=== PATIENT | male | born 1970 | race Hispanic/Latino ===

== ENCOUNTER 2019-09-10 10:36 | Emergency (ER) | payer OTHER ==
[2019-09-10] MEDS ORDERED: MORPHINE 4 MG/ML SYR ONE (11:21)
[2019-09-10] MEDS ORDERED: ONDANSETRON 4 MG/2 ML VIAL ONE (11:21)
[2019-09-10 11:36] LABS: Absolute Lymphocytes (CBC) 2.4 K/uL (0.7-4.9); Basophils % 0.9 % (0-1.3); Hematocrit 45.8 % (39.6-49.0); Lymphocytes % 33.7 % (15.3-44.8); MPV 9.5 fL (7.6-11.3)
[2019-09-10 11:50] LABS: Albumin 3.8 g/dL (3.4-5.0); Bilirubin Direct 0.2 mg/dL (0-0.2); Bilirubin Total 0.6 mg/dL (0.2-1.0); Potassium 3.7 mmol/L (3.5-5.1); Protein, Total 7.3 g/dL (6.4-8.2)
--- NOTE | 2019-09-10 12:31 | RAD REPORT ---
EXAM DESCRIPTION: CTAbdomen Pelvis W Contrast - 09/10/2019 12:11 pm CLINICAL HISTORY: Abdominal pain. RLQ PAIN COMPARISON: CT ABD PELVIS W CONTRAST dated 04/26/2012 TECHNIQUE: Biphasic CT imaging of the abdomen and pelvis was performed with 100 ml non-ionic IV cont rast. All CT scans are performed using dose optimization technique as appropriate and may include automated exposure control or mA/KV adjustment according to patient size. FINDINGS: The lung bases are clear.Postsurgical changes are present of gastric bypass. The liver, spleen, pancreas, adrenal glands and kidneys are within normal limits. Small renal cysts b ilaterally. No bowel obstruction, free air, free fluid or abscess. The appendix is normal. No evidence of signi ficant lymphadenopathy. No suspicious bony findings. IMPRESSION: No acute intra-abdominal or pelvic finding.
--- NOTE | 2019-09-10 13:43 | ER ---
Nurse's Notes [facility] Name: Osmany Ojeda Age: 49 yrs Sex: Male : 1970 Arrival Date: 09/10/2019 Time: 10:41 Bed 17 Private MD: Diagnosis: Unspecified abdominal pain;Diarrhea, unspecified Presentation: 09/10 10:48 Presenting complaint: RLQ pain and diarrhea x 3 days. Denies fever. Transition of care: hb patient was not received from another setting of care. Onset of symptoms was August 2019. Risk Assessment: Do you want to hurt yourself or someone else? Patient reports no desire to harm self or others. Initial Sepsis Screen: Does the patient meet any 2 criteria? No. Patient's initial sepsis screen is negative. Does the patient have a suspected source of infection? No. Patient's initial sepsis screen is negative. Care prior to arrival: None. 10:48 Method Of Arrival: Ambulatory hb 10:48 Acuity: JOSEPH 3 hb Historical: - Allergies: 10:50 Lisinopril; hb - Home Meds: 10:50 amlodipine oral [Active]; losartan oral oral [Active]; hb - PMHx: 10:50 acid reflux; Diabetes - IDDM; Hypertension; PTSD; Sleep Apnea; hb - PSHx: 10:50 None; hb - Immunization history:: Adult Immunizations up to date. - Social history:: Smoking status: Patient/guardian denies using tobacco. - Ebola Screening: : No symptoms or risks identified at this time. Screenin:30 Abuse screen: Denies threats or abuse. Denies injuries from another. Nutritional jl7 screening: No deficits noted. Tuberculosis screening: No symptoms or risk factors identified. Fall Risk IV access (20 points). Total Ochoa Fall Scale indicates No Risk (0-24 pts). Assessment: 11:30 General: Appears in no apparent distress. uncomfortable, Behavior is calm, cooperative, jl7 appropriate for age. Pain: Complains of pain in right lower quadrant Pain does not radiate. Pain currently is 7 out of 10 on a pain scale. Quality of pain is described as sharp, Pain began 2 weeks ago Is intermittent. Neuro: Level of Consciousness is awake, alert, obeys commands, Oriented to person, place, time, situation. Cardiovascular: Patient's skin is warm and dry. Respiratory: Airway is patent Respiratory effort is even, unlabored, Respiratory pattern is regular, symmetrical. GI: Bowel sounds present X 4 quads. Abd is soft X 4 quads Abdomen is tender to palpation in right lower quadrant Reports diarrhea. Derm: Skin is pink, warm \T\ dry. 12:02 Reassessment: Patient appears in no apparent distress at this time. Patient and/or jl7 family updated on plan of care and expected duration. Pain level reassessed. Patient is alert, oriented x 3, equal unlabored respirations, skin warm/dry/pink. Patient states symptoms have improved. 13:11 Reassessment: Patient appears in no apparent distress at this time. No changes from jl7 previously documented assessment. Patient and/or family updated on plan of care and expected duration. Pain level reassessed. Patient is alert, oriented x 3, equal unlabored respirations, skin warm/dry/pink. 13:20 Reassessment: ERP aware of BP, pt has home medications that he forgot to take and will jl7 take now. Vital Signs: 10:50 BP 193 / 92; Pulse 55; Resp 16; Temp 97.2(TE); Pulse Ox 100% on R/A; Weight 96.16 kg; hb Height 5 ft. 8 in. (172.72 cm); Pain 7/10; 12:01 BP 206 / 90; Pulse 52; Resp 16 S; Pulse Ox 100% on R/A; Pain 6/10; jl7 12:01 Pain 6/10; jl7 13:11 BP 201 / 76; Pulse 51; Resp 16 S; Pulse Ox 100% on R/A; jl7 10:50 Body Mass Index 32.23 (96.16 kg, 172.72 cm) hb ED Course: 10:41 Patient arrived in ED. mr 10:49 Triage completed. hb 10:50 Arm band placed on. hb 10:56 Cordell Rosales NP is PHCP. pm1 10:56 Gunnar Bustos MD is Attending Physician. pm1 11:12 Amparo Huitron RN is Primary Nurse. jl7 11:26 Initial lab(s) drawn, by hi, sent to lab. Inserted saline lock: 22 gauge in right jb1 antecubital area, using aseptic technique. Blood collected. 11:30 Patient has correct armband on for positive identification. Placed in gown. Bed in low jl7 position. Call light in reach. Side rails up X 1. Pulse ox on. NIBP on. 12:11 CT Abd/Pelvis - IV Contrast Only In Process Unspecified. EDMS 14:07 No provider procedures requiring assistance completed. IV discontinued, intact, jl7 bleeding controlled, No redness/swelling at site. Pressure dressing applied. Administered Medications: 11:35 Drug: Zofran 4 mg Route: IVP; Site: right antecubital; jl7 12:01 Follow up: Response: No adverse reaction jl7 11:37 Drug: morphine 4 mg Route: IVP; Site: right antecubital; jl7 12:01 Follow up: Pain 6/10 Adult; Response: Pain is decreased jl7 Outcome: 13:42 Discharge ordered by . pm1 14:07 Discharged to home ambulatory. jl7 14:07 Condition: stable 14:07 Discharge instructions given to patient, Instructed on discharge instructions, follow up and referral plans. Demonstrated understanding of instructions, follow-up care, medications, Prescriptions given X 1. 14:08 Patient left the ED. jl7 Signatures: Dispatcher [employer] EDMS Madhu Ibrahim jb1 Phoebe Ortega mr Cordell Rosales, LOCK TENDER CHIEF OPERATOR LOCK TENDER CHIEF OPERATOR pm1 Bozena Nolan, Amparo Rocha RN, RN RN jl7
--- NOTE | 2019-09-10 13:43 | EDPHYS ---
Physician Documentation [facility] Name: Osmany Ojeda Age: 49 yrs Sex: Male : 1970 Arrival Date: 09/10/2019 Time: 10:41 Bed 17 Private MD: ED Physician Gunnar Bustos HPI: 09/10 11:15 This 49 yrs old Male presents to ER via Ambulatory with complaints of pm1 Abdominal Pain. 11:15 The patient presents with abdominal pain right lower quadrant. Onset: The pm1 symptoms/episode began/occurred 2 week(s) ago. The symptoms do not radiate. Associated signs and symptoms: Pertinent positives: diarrhea, Pertinent negatives: nausea and vomiting, chest pain, dysuria, fever, shortness of breath. The symptoms are described as sharp. Modifying factors: The symptoms are alleviated by nothing, the symptoms are aggravated by nothing. Severity of pain: in the emergency department the pain is unchanged. The patient has not experienced similar symptoms in the past. It is unknown whether or not the patient has recently seen a physician. Historical: - Allergies: 10:50 Lisinopril; hb - Home Meds: 10:50 amlodipine oral [Active]; losartan oral oral [Active]; hb - PMHx: 10:50 acid reflux; Diabetes - IDDM; Hypertension; PTSD; Sleep Apnea; hb - PSHx: 10:50 None; hb - Immunization history:: Adult Immunizations up to date. - Social history:: Smoking status: Patient/guardian denies using tobacco. - Ebola Screening: : No symptoms or risks identified at this time. ROS: 11:15 Constitutional: Negative for fever, chills, and weight loss, Eyes: Negative for injury, pm1 pain, redness, and discharge, ENT: Negative for injury, pain, and discharge, Neck: Negative for injury, pain, and swelling, Cardiovascular: Negative for chest pain, palpitations, and edema, Respiratory: Negative for shortness of breath, cough, wheezing, and pleuritic chest pain. 11:15 Back: Negative for injury and pain, : Negative for injury, bleeding, discharge, and swelling, MS/Extremity: Negative for injury and deformity, Skin: Negative for injury, rash, and discoloration. 11:15 Neuro: Negative for headache, weakness, numbness, tingling, and seizure. 11:15 Abdomen/GI: Positive for abdominal pain, diarrhea, of the right lower quadrant, Negative for nausea and vomiting, constipation. Exam: 11:15 Constitutional: This is a well developed, well nourished patient who is awake, alert, pm1 and in no acute distress. Head/Face: Normocephalic, atraumatic. Neck: Trachea midline, no thyromegaly or masses palpated, and no cervical lymphadenopathy. Supple, full range of motion without nuchal rigidity, or vertebral point tenderness. No Meningismus. Chest/axilla: Normal chest wall appearance and motion. Nontender with no deformity. No lesions are appreciated. Cardiovascular: Regular rate and rhythm with a normal S1 and S2. No gallops, murmurs, or rubs. Normal PMI, no JVD. No pulse deficits. Respiratory: Lungs have equal breath sounds bilaterally, clear to auscultation and percussion. No rales, rhonchi or wheezes noted. No increased work of breathing, no retractions or nasal flaring. 11:15 Back: No spinal tenderness. No costovertebral tenderness. Full range of motion. Skin: Warm, dry with normal turgor. Normal color with no rashes, no lesions, and no evidence of cellulitis. MS/ Extremity: Pulses equal, no cyanosis. Neurovascular intact. Full, normal range of motion. 11:15 Abdomen/GI: Inspection: abdomen appears normal, Bowel sounds: normal, Palpation: soft, mild abdominal tenderness, in the right lower quadrant, mass, is not appreciated, rebound tenderness, is not appreciated. 11:15 Neuro: Orientation: is normal, Motor: is normal, moves all fours. Vital Signs: 10:50 BP 193 / 92; Pulse 55; Resp 16; Temp 97.2(TE); Pulse Ox 100% on R/A; Weight 96.16 kg; hb Height 5 ft. 8 in. (172.72 cm); Pain 7/10; 12:01 BP 206 / 90; Pulse 52; Resp 16 S; Pulse Ox 100% on R/A; Pain 6/10; jl7 12:01 Pain 6/10; jl7 13:11 BP 201 / 76; Pulse 51; Resp 16 S; Pulse Ox 100% on R/A; jl7 10:50 Body Mass Index 32.23 (96.16 kg, 172.72 cm) hb MDM: 11:06 Patient medically screened. pm1 12:36 Data reviewed: vital signs. Data interpreted: Pulse oximetry: on room air is 100 %. pm1 Interpretation: normal. 13:41 Counseling: I had a detailed discussion with the patient and/or guardian regarding: the pm1 historical points, exam findings, and any diagnostic results supporting the discharge/admit diagnosis, lab results, radiology results, the need for outpatient follow up, to return to the emergency department if symptoms worsen or persist or if there are any questions or concerns that arise at home. 09/10 11:15 Order name: Basic Metabolic Panel; Complete Time: 11:51 pm1 09/10 11:15 Order name: CBC with Diff; Complete Time: 11:51 pm1 09/10 11:15 Order name: Creatinine for Radiology; Complete Time: 11:51 pm1 09/10 11:15 Order name: Hepatic Function; Complete Time: 11:51 pm1 09/10 11:15 Order name: Lipase; Complete Time: 11:51 pm1 09/10 11:15 Order name: CT Abd/Pelvis - IV Contrast Only; Complete Time: 12:35 pm1 09/10 11:15 Order name: IV Saline Lock; Complete Time: 11:27 pm1 09/10 11:15 Order name: Labs collected and sent; Complete Time: 11:27 pm1 Administered Medications: 11:35 Drug: Zofran 4 mg Route: IVP; Site: right antecubital; jl7 12:01 Follow up: Response: No adverse reaction [facility] 11:37 Drug: morphine 4 mg Route: IVP; Site: right antecubital; jl7 12:01 Follow up: Pain 6/10 Adult; Response: Pain is decreased jl7 Disposition: 09/11 06:52 Co-signature as Attending Physician, Gunnar Bustos MD I agree with the assessment and monica plan of care. Disposition: 09/10/19 13:42 Discharged to Home. Impression: Unspecified abdominal pain, Diarrhea, unspecified. - Condition is Stable. - Discharge Instructions: Abdominal Pain, Adult, Food Choices to Help Relieve Diarrhea, Adult, Diarrhea, Adult. - Prescriptions for Bentyl 20 mg Oral Tablet - take 1 tablet by ORAL route every 6 hours As needed; 20 tablet. - Medication Reconciliation Form, Thank You Letter, Antibiotic Education, Prescription Opioid Use form. - Follow up: Emergency Department; When: As needed; Reason: Worsening of condition. Follow up: Private Physician; When: 2 - 3 days; Reason: Recheck today's complaints, Continuance of care, Re-evaluation by your physician. - Problem is new. - Symptoms have improved. Signatures: Dispatcher [employer] EDMS Gunnar Bustos MD MD cha Marinas, Patrick, OPTICAL DESIGN ENGINEER OPTICAL DESIGN ENGINEER pm1 Bozena Nolan RN RN Amparo Huitron RN RN jl7 Corrections: (The following items were deleted from the chart) 09/10 14:08 13:42 09/10/2019 13:42 Discharged to Home. Impression: Unspecified abdominal pain; jl7 Diarrhea, unspecified. Condition is Stable. Forms are Medication Reconciliation Form, Thank You Letter, Antibiotic Education, Prescription Opioid Use. Follow up: Emergency Department; When: As needed; Reason: Worsening of condition. Follow up: Private Physician; When: 2 - 3 days; Reason: Recheck today's complaints, Continuance of care, Re-evaluation by your physician. Problem is new. Symptoms have improved. pm1
[2019-09-10 20:10] VITALS: TEMP 97.2; O2SAT 100
[2019-09-10 20:17] VITALS: BP 201/76
== END 2019-09-10 14:08 | disposition home or self-care (01) ==
LOC: ER 10:36
DX: R19.7 Diarrhea, unspecified (principal); I10 Essential (primary) hypertension; E11.9 Type 2 diabetes mellitus without complications; Z88.8 Allergy status to other drugs, medicaments and biological substances
CPT/HCPCS: 85025; 80048; 36415; 80076; 83690; 74177; 96375; 96374; 99284; Q9967; J2405

== ENCOUNTER 2020-04-12 22:49 | Inpatient (IN) | payer OTHER ==
--- OUTSIDE RECORDS SUMMARY | 2020-04-12 22:52 | XMS REPORT | Continuity of Care Document ---
:1970 Author Organization [facility] t Address [address] [place] [address] Care Team Providers Name Role Phone Theodora Yoon MD Primary Care Physician Pob1, Care Clinic Attending Clinician Unavailable Sobia TELLEZ, N. Attending Clinician Mirella VALLADARES Attending Clinician Unavailable Aminata TELLEZ Attending Clinician Viv Yoon MD Attending Clinician Problems Condition Condition Condition Status Onset Resolution Last Treating Co mments Source Name Details Category Date Date Treatment Clinician Date Morbid Morbid Disease Active 2017-10 [place] obesity obesity 0-18 [facility] due to due to 00:00: st excess excess 00 calories calories Loose body Loose body Disease Active [place] in right in right 02-14 [facility] elbow elbow 00:00: st 00 Arthritis Arthritis Disease Active Anisa ston of right of right 01-16 [facility] elbow elbow 00:00: st 00 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 type 2 ed type 2 05-18 [facility] diabetes diabetes 00:00: st mellitus mellitus 00 with with complicati complicati on, with on, with long-term long-term current current use of use of insulin insulin Mixed Mixed Disease Active [place] hyperlipid hyperlipid 05-18 Me thodi emia emia 00:00: st 00 Benign Benign Disease Active [place] essential essential 7-14 Meth leandra HTN HTN 00:00: st 00 Allergies, Adverse Reactions, Alerts Allergy Allergy Status Severity Reaction(s) Onset Inactive Treating Comm ents Source Name Type Date Date Clinician Pollen Propensi Active 2016-10 Pt [place] Extracts ty to 11-13 allergic [facility] adverse 00:00: to dust st reaction 00 s to drug Lisinopr Propensi Active Other (See Cough [place] ty to Comments) 08 [facility] adverse 00:00: st reaction 00 s to drug Family History Family Member Diagnosis Comments Start Date Stop Date Source Natural father Diabetes [facility] thodist Natural father Hypertension [place] Yazidism Natural mother Diabetes [facility] thodist Natural mother Heart disease [place] [facility] Natural [facility] Hy[facility] Natural mother Stroke [facility] thod[facility] Social History Social Habit Start Date Stop Date Quantity Comments Source History [facility] Meth odist Alcohol Std Drinks History [facility] Meth odist Alcohol Binge Sex Assigned At [facility] ethodist Exposure to Not sure [place] Metho dist SARS-CoV-2 (event) Alcohol intake 2019-04-10 2019-04-[address] [facility] thodist 00:00:00 00:00:00 non-drinker of alcohol (finding) History [facility] 2018-11-08 2018-11-08 1 [place] Meth odist Alcohol Frequency 00:00:00 00:00:00 Smoking Status Start Date Stop Date Source Never smoker [place] Method[facility] t Medications Ordered Filled Start Stop Current Ordering Indication Dosage Frequency Signature Comments Components Source Medication Medication Date Date Medication? Clinician (SIG) Name Name atorvastati Yes 40mg QD Take 40 mg [place] n (LIPITOR) 18 by mouth Meth leandra 40 MG 11:02: nightly. st tablet 49 insulin Yes 14U QD Inject 14 [place] GLARGINE 6-18 Units [facility] (LANTUS) 11:02: under the st 100 unit/mL 49 skin every injection morning. (vial) cyanocobala Yes QD Place [place] min, -18 under the [facility] vitamin 11:02: tongue st B-12, 49 daily. (VITAMIN B-12) 1,000 mcg tablet, sublingual calcium Yes QD Take by [place] carbonate/v -18 mouth [facility] itamin D3 11:02: daily. st (CALCIUM 49 600 + D,3, ORAL) iron,carb/v Yes QD Take by Anisa hawkins it C/vit 18 mouth [facility] B12/folic 11:02: daily. st (IRON 100 49 PLUS ORAL) UNABLE TO 2019-0 Yes QD daily. Med [employer] [facility] FIND 04-10 Name: [facility] 11:02: Bariatric st 49 Advantage MVI losartan Yes Take by [facility] n potassium 18 mouth. [facility] (LOSARTAN 11:02: st ORAL) 49 amlodipine Yes Take by [facility] ton besylate 18 mouth. [facility] (AMLODIPINE 11:02: st ORAL) 49 gabapentin Yes 100mg [id number] Take 1 [place] (NEURONTIN) 2-28 [id number] capsule [facility] 100 mg 00:00: 3D ([address] capsule 00 total) by mouth 3 (three) times a day. citalopram Yes [facility] QD [facility] 9-17 tablet (40 Me thodi MG tablet 00:00: mg total) st 00 by mouth nightly. blood sugar Yes Uncontrolle Testing 4 [place] diagnostic 8-11 d type 2 X day [facility] strips 00:00: diabetes st strip test 00 mellitus strips without complicatio n, with long-term current use of insulin ([facility]) lancets 0 Yes Uncontrolle Testing 4 [place] misc 8-11 d type 2 X Day [facility] 00:00: diabetes st 00 mellitus without complicatio n, with long-term current use of insulin ([facility]) lancets 33 0 Yes Uncontrolle Testing 3 [place] gauge misc 8-04 d type 2 X Day Meth leandra 00:00: diabetes st 00 mellitus with complicatio n, with long-term current use of insulin ([facility]) blood sugar Yes Uncontrolle Testing 3 [place] diagnostic 7-26 d type 2 X Day [facility] le[facility] strips 00:00: diabetes st strip test 00 mellitus strips with complicatio n, with long-term current use of insulin ([facility]) Procedures Procedure Date / Time Performed Performing Clinician [facility] e COMPREHENSIVE METABOLIC 2019-09-10 09:24:00 Tete [facility] PANEL HEMOGLOBIN A1C 2019-09-10 09:24:00 Tete Coates Met hod[facility] LIPID PANEL 2019-09-10 09:24:00 Tete Coates Met vazquezist MICROALBUMIN / CREATININE 2019-09-10 09:24:00 Tete Coates [facility] URINE RATIO Plan of Care Planned Activity Planned Date Details Comments Source Future Scheduled 2020-09-27 DIABETIC RETINAL EYE [facility] st[facility] Test 00:00:00 EXAM [code = DIABETIC RETINAL EYE EXAM] Future Scheduled 2020-09-10 URINE MICROALBUMIN [place] [facility] Test 00:00:00 [code = URINE MICROALBUMIN] Future Scheduled 2020-05-24 INFLUENZA VACCINE [place] [facility] Test 00:00:00 [code = INFLUENZA VACCINE] Future Scheduled 2020 COLONOSCOPY SCREENING [place] [facility] Test 00:00:00 [code = COLONOSCOPY SCREENING] Future Scheduled 2020 SHINGLES VACCINES (#1) [place] [facility] Test 00:00:00 [code = SHINGLES VACCINES (#1)] Future Scheduled 2020-03-12 DIABETIC FOOT EXAM [place] [facility] Test 00:00:00 [code = DIABETIC FOOT EXAM] Encounters Start End Encounter Admission Attending Care Care Encounter Source Date/Time Date/Time Type Type Clinicians Facility Department ID 2020-04-11 2020-04-11 Urgent Pob1, Acute [facility] [id number] 15:51:25 16:47:07 [facility] [id number] [place] [id number] [id number] [place] [address] [address] Results This patient has no known results.
--- OUTSIDE RECORDS SUMMARY | 2020-04-12 22:52 | XMS REPORT | Clinical Summary ---
:1970 Author Organization [facility] Address [address] [place] [address] Care Team Providers Name Role Phone Theodora Yoon MD Primary Care Provider [phone] Allergies Active Allergy Reactions Severity Noted Date Comments Lisinopril Other (See Comments) 03/31/2017 Cough Pollen Extracts 09/13/2017 Pt allergic to dust Medications Medication Sig Dispensed Refills Start Date End Date Status atorvastatin (LIPITOR) Take 40 mg by 0 Active 40 MG tablet mouth nightly. blood sugar diagnostic Testing 3 X Day 400 strip 6 05/18/2017 Active strips strip test stripsIndications: Uncontrolled type 2 diabetes mellitus with complication, with long-term current use of insulin ([facility]) lancets 33 gauge Testing 3 X Day 300 each 6 05/27/2017 Active miscIndications: Uncontrolled type 2 diabetes mellitus with complication, with long-term current use of insulin ([facility]) blood sugar diagnostic Testing 4 X day 400 strip 6 06/03/2017 Active strips strip test stripsIndications: Uncontrolled type 2 diabetes mellitus without complication, with long-term current use of insulin ([facility]) lancets Testing 4 X Day 400 each 6 06/03/2017 Act sanjay miscIndications: Uncontrolled type 2 diabetes mellitus without complication, with long-term current use of insulin ([facility]) citalopram (CeleXA) 40 Take 1 tablet (40 90 tablet 0 8 Active MG tablet mg total) by mouth nightly. insulin GLARGINE Inject 14 Units 0 Active (LANTUS) 100 unit/mL under the skin injection (vial) every morning. cyanocobalamin, Place under the 0 Active vitamin B-12, (VITAMIN tongue daily. B-12) 1,000 mcg tablet, sublingual calcium Take by mouth 0 Active carbonate/vitamin D3 daily. (CALCIUM 600 + D,3, ORAL) iron,carb/vit C/vit Take by mouth 0 Active B12/folic (IRON 100 daily. PLUS ORAL) UNABLE TO FIND daily. Med Name: 0 Active Bariatric Advantage MVI losartan potassium Take by mouth. 0 Active (LOSARTAN ORAL) amlodipine besylate Take by mouth. 0 Active (AMLODIPINE ORAL) gabapentin (NEURONTIN) Take 1 capsule 0 12/21/2018 Active 100 mg capsule (100 mg total) by mouth 3 (three) times a day. Active Problems Problem Noted Date Morbid obesity due to excess calories 08/10/2018 Loose body in right elbow 02/14/2018 Arthritis of right elbow 01/16/2018 Uncontrolled type 2 diabetes mellitus with complicatio n, with long-term 05/18/2017 current use of insulin Mixed hyperlipidemia 05/18/2017 Benign essential HTN 05/06/2017 Encounters Date Type Specialty Care Team Description 04/01/2020 Telephone Urology [place], Hypogonadis m in male Jaden Wheeler MD (Primary Dx) 03/25/2020 Travel 02/27/2020 Orders Only Endocrinology Mallorie [facility] (Primary Dx) 02/15/2020 Orders Only Endocrinology Mallorie Vu [facility]cont [facility] (Primary Dx) 11/06/2019 Telephone Endocrinology Mallorie Vu MA 09/09/2019 Refill Endocrinology Tete Coates MD Uncont rolled type 2 diabetes mellitus with complication, with long-term current use of insulin (HCC); Uncontrolled ty pe 2 diabetes mellitus without complication, with long-term current use of insulin (HCC) 09/09/2019 Refill Family Medicine Theodora Yoon MD after 04/12/2019 Family History Medical History Relation Name Comments Diabetes Father Zion Ojeda Hypertension Father Donovan Ojeda Diabetes Mother Marianne Radha Heart disease Mother Marianne Radha Hypertension Mother Marianne Radha Stroke Mother Marianne Radha Relation Name Status Comments Father Zion Ojeda Maternal Grandfather Maternal Grandmother Mother Marianne Radha Alive Paternal Grandfather Paternal Grandmother Social History Tobacco Use Types Packs/Day Years Used Date Never Smoker Smokeless Tobacco: Never Used Tobacco Cessation: Counseling Given: No Alcohol Use Drinks/Week oz/Week Comments No Alcohol Habits Answer Date Recorded How often do you have a drink containing alcohol? Never 11/08/2018 How many drinks containing alcohol do you have on a typical Not asked day when you are drinking? How often do you have six or more drinks on one occasion? No t asked Sex Assigned at Date Recorded Not on file Job Start Date Occupation Industry Not on file Not on file Not on file Travel History Travel Start Travel End No recent travel history available. COVID-19 Exposure Response Date Recorded In the last month, have you been in contact with No / Unsure 03/25/2020 11:04 AM CDT someone who was confirmed or suspected to have Coronavirus / COVID-19? Last Filed Vital Signs Not on file Plan of Treatment Date Type Specialty Care Team Description 04/21/2020 Office Visit Endocrinology Tete Coates MD [address] [place], [place] [address] [phone] 04/28/2020 Office Visit Urology Jaden Ramsay MD [address] [place], [place] [address] [phone] 08/06/2020 Office Visit General Surgery Jason Raman MD [address] [place], [place] [address] [phone] Health Maintenance Due Date Last Done Comments DIABETIC FOOT EXAM 03/12/2020 03/12/2019, 03/12/2019, 03/12, Additional history exists COLONOSCOPY SCREENING 2020 SHINGLES VACCINES (#1) 2020 INFLUENZA VACCINE 05/24/2020 07/05/2018 URINE MICROALBUMIN 09/10/2020 09/10/2019, 05/05/2017 DIABETIC RETINAL EYE EXAM 09/27/2020 09/27/2018, 09/27/2018 , 09/27/2018, Additional history exists Procedures Procedure Name Priority Date/Time Associated Diagnosis Comme nts MICROALBUMIN / Routine 09/10/2019 9:24 Uncontrolled type 2 Re sults for this CREATININE URINE AM MEDICAL RECORDS SECRETARY diabetes mellitus with p rocedure are in RATIO insulin therapy (HCC) the re sults section. LIPID PANEL Routine 09/10/2019 9:24 Mixed hyperlipidemia Res ults for this AM MEDICAL RECORDS SECRETARY procedure are i n the results section. HEMOGLOBIN A1C Routine 09/10/2019 9:24 Uncontrolled type 2 Re sults for this AM MEDICAL RECORDS SECRETARY diabetes mellitus with proce dure are in insulin therapy (HCC) the re sults section. COMPREHENSIVE Routine 09/10/2019 9:24 Uncontrolled type 2 Res ults for this METABOLIC PANEL AM MEDICAL RECORDS SECRETARY diabetes mellitus with pr ocedure are in insulin therapy ([facility]) the re sults section. after 04/12/2019 Results Microalbumin / creatinine urine ratio (09/10/2019 9:24 AM MEDICAL RECORDS SECRETARY) Creatinine, urine, 211.8 Not Estab. [facility] random mg/dL Albumin, urine 1,504.1 Not Estab. [facility] Comment: ug/mL Results confirmed on dilution. Microalbumin/creati 710.2 (H) 0.0 - 30.0 [facility] nine ratio Comment: mg/g creat Normal: 0.0 - 30.0 Albuminuria: 31.0 - 300.0 Clinical albuminuria: >300.0 Specimen Urine Narrative Performed At Performed at: - [facility] [employer] [place], [place] [address] 095 Planner Chief: Kings Landin MD, Phone: [phone] Performing Organization Address [facility] [place] Phone Number [facility] Hemoglobin A1c (09/10/2019 9:24 AM MEDICAL RECORDS SECRETARY) Pathologist [facility] nature Hemoglobin A1C 9.4 (H) 4.8 - 5.6 % [facility] Comment: Prediabetes: 5.7 - 6.4 Diabetes: >6.4 Glycemic control for adults with diabetes : <7.0 Specimen Blood Narrative Performed At Performed at: - [facility] [employer] [place], [place] [id number] Planner Chief: Kings Landin MD, Phone: [phone] Performing Organization Address [facility] Phone Number [facility] Lipid panel (09/10/2019 9:24 AM MEDICAL RECORDS SECRETARY) Pathologist [facility] Cholesterol 134 100 - 199 mg/dL [facility] Triglycerides 134 0 - 149 mg/dL [facility] HDL cholesterol 34 (L) >39 mg/dL [facility] VLDL cholesterol andrzej 27 5 - 40 mg/dL [facility] LDL cholesterol calculated 73 0 - 99 mg/dL [facility] Non-HDL cholesterol 100 0 - 129 mg/dL [facility] Specimen Blood Narrative [facility]formed At [facility] [id number] Planner Chief: Kings Landin MD, Phone: [phone] Performing Organization Address [facility] [place] Phone Number [facility] Comprehensive metabolic panel (09/10/2019 9:24 AM MEDICAL RECORDS SECRETARY) [facility] Glucose 200 (H) 65 - 99 mg/dL [facility] BUN 9 6 - 24 mg/dL [facility] Creatinine 0.97 0.76 - 1.27 mg/dL [facility] EGFR Non-Afr. Iranian 91 >59 mL/min/1.73 [facility] EGFR 106 >59 mL/min/1.73 [facility] BUN/creatinine ratio 9 9 - 20 [facility] Sodium 141 134 - 144 mmol/L [facility] Potassium 4.2 3.5 - 5.2 mmol/L [facility] Chloride 101 96 - 106 mmol/L [facility] CO2 27 20 - 29 mmol/L [facility] Calcium 9.5 8.7 - 10.2 mg/dL [facility] Protein 6.8 6.0 - 8.5 g/dL [facility] Albumin, S 4.3 3.5 - 5.5 g/dL [facility] Globulin, total 2.5 1.5 - 4.5 g/dL [facility] Albumin/globulin ratio 1.7 1.2 - 2.2 [facility] Total bilirubin 0.6 0.0 - 1.2 mg/dL [facility] Alkaline phosphatase 107 39 - 117 IU/L [facility] AST 18 0 - 40 IU/L [facility] ALT 26 0 - 44 IU/L [facility] Specimen Blood Narrative Performed At [facility]formed [facility]: [facility] [id number] Planner Chief: Kings Landin MD, Phone: [phone] Performing Organization Address [facility] [place] Phone Number [facility] after 04/12/2019 Advance Directives For more information, please contact: [phone] Type Date Recorded Patient Second Cutter Explanati on Advance Directives, Living Will and Medical Power of Street Light Inspector
--- OUTSIDE RECORDS SUMMARY | 2020-04-12 22:52 | XMS REPORT | Summary of Care ---
:[address] [facility] Address [address] [place] [address] Care Team Providers Name Role Phone Pcp, Patient Does Not Have A Primary Care Provider [phone] Reason for Visit Reason Comments Headache Chills And Sweats Body Aches Cough Exposure To Rodriguez Virus Encounter Details Date Type Department Care Team Description 04/11/2020 Urgent Care [facility] Family PriteshShahrzad haile, PA [address] [place] [phone] Cough (Primary Dx); [facility] [place] [address], Acute Care Clinic Acute URI; [address] [place] [address] [place] [address] Allergies Active Allergy Reactions Severity Noted Date Comments Lisinopril Cough 04/11/2020 documented as of this encounter (statuses as of 04/11/2020) Medications Medication Sig Dispensed Refills Start Date End Date Status benzonatate (TESSALON Take 1 capsule by 30 capsule 0 0 Active PERLES) 100 mg mouth 3 (three) capsuleIndications: times daily as Cough needed for Cough. documented as of this encounter (statuses as of 04/11/2020) Active Problems No known active problemsdocumented as of this encounter (statuses as of 04/11/2020) Social History Tobacco Use Types Packs/Day Years Used Date Never Smoker Smokeless Tobacco: Never Used Sex Assigned at Date Recorded Not on file Job Start Date Occupation Industry Not on file Not on file Not on file Travel History Travel Start Travel End No recent travel history available. COVID-19 Exposure Response Date Recorded In the last month, have you been in contact with Yes 04/11/2020 4:31 PM CDT someone who was confirmed or suspected to have Coronavirus / COVID-19? documented as of this encounter Last Filed Vital Signs Vital Sign Reading Time Taken Comments Blood Pressure 142/88 04/11/2020 4:33 PM CDT Pulse 78 04/11/2020 4:33 PM CDT Temperature 36.9 C (98.4 F) 04/11/2020 4:33 PM CDT Respiratory Rate 17 04/11/2020 4:33 PM CDT Oxygen Saturation 98% 04/11/2020 4:33 PM CDT Inhaled Oxygen Concentration - - Weight 85 kg (187 lb 6 oz) 04/11/2020 4:33 PM CDT Height - - Body Mass Index - - documented in this encounter Progress Notes Alix Jonas PA - 04/11/2020 4:20 PM CDT Cc: Chief Complaint Patient presents with Headache Chills And Sweats Body Aches Cough Exposure To Rodriguez Virus Osmany Rouse is a 50 year old male. Patient presents with URI symptoms that began 5 days ago. COVID19 exposure? Yes. Ex- and her family members positive. Patient was in contact with them last week. URI Presenting symptoms: congestion, cough, fatigue and sore throat Presenting symptoms: no ear pain, no facial pain, no fever and no rhinorrhea Duration: 5 days Timing: Intermittent Progression: Unchanged Chronicity: New Worsened by: Nothing Associated symptoms: arthralgias Associated symptoms: no headaches, no myalgias, no neck pain, no sinus pain, no sneezing, no swollenglands and no wheezing Risk factors: chronic cardiac disease, diabetes mellitus and sick contacts Risk factors: not elderly, no chronic kidney disease, no chronic respiratory disease, no immunosuppression, no recent illness and no recent travel Allergies Osmayn is allergic to lisinopril. Medications No outpatient medications prior to visit. No facility-administered medications prior to visit. Histories Past Medical History: Diagnosis Date Diabetes Hypertension History reviewed. No pertinent surgical history. Social History Socioeconomic History Marital status: Single Spouse name: Not on file Number of children: Not on file Years of education: Not on file Highest education level: Not on file Occupational History Not on file Social Needs Financial resource strain: Not on file Food insecurity: Worry: Not on file Inability: Not on file Transportation needs: Medical: Not on file Non-medical: Not on file Tobacco Use Smoking status: Never Smoker Smokeless tobacco: Never Used Substance and Sexual Activity Alcohol use: Not on file Drug use: Not on file Sexual activity: Not on file Lifestyle Physical activity: Days per week: Not on file Minutes per session: Not on file Stress: Not on file Relationships Social connections: Talks on phone: Not on file Gets together: Not on file Attends gnosticism service: Not on file Active member of club or organization: Not on file Attends meetings of clubs or organizations: Not on file Relationship status: Not on file Intimate partner violence: Fear of current or ex partner: Not on file Emotionally abused: Not on file Physically abused: Not on file Forced sexual activity: Not on file Other Topics Concern Not on file Social History Narrative Lives at home with and children Family History Problem Relation Age of Onset Diabetes Mother Diabetes Father Review of Systems Constitutional: Positive for fatigue. Negative for activity change, appetite change, chills, diaphoresis and fever. HENT: Positive for congestion and sore throat. Negative for ear pain, postnasal drip, rhinorrhea, sinus pressure, sinus pain, sneezing, trouble swallowing and voice change. Eyes: Negative for pain, discharge, redness and itching. Respiratory: Positive for cough. Negative for chest tightness, shortness of breath and wheezing. Cardiovascular: Negative for chest pain, palpitations and leg swelling. Gastrointestinal: Positive for diarrhea (x 1 this morning. not black or bloody) and vomiting (x 1 this morning). Negative for abdominal pain, constipation and nausea. Musculoskeletal: Positive for arthralgias. Negative for back pain, gait problem, joint swelling, myalgias and neck pain. Skin: Negative for color change and rash. Neurological: Negative for dizziness, syncope, weakness, light-headedness and headaches. Vital Signs BP (!) 142/88 | Pulse 78 | Temp 36.9 C (98.4 F) | Resp 17 | Wt 187 lb 6 oz (85 kg) | SpO2 98% Physical Exam Constitutional: He is oriented to person, place, and time. He appears well- developed and well-nourished. No distress. HENT: Head: Normocephalic and atraumatic. Right Ear: External ear normal. Left Ear: External ear normal. Nose: Nose normal. Eyes: Conjunctivae are normal. Right eye exhibits no discharge. Left eye exhibits no discharge. Neck: Normal range of motion. Neck supple. Cardiovascular: Normal rate, regular rhythm and normal heart sounds. Pulmonary/Chest: Effort normal and breath sounds normal. No respiratory distress. He has no wheezes.He has no rales. Abdominal: Soft. Bowel sounds are normal. He exhibits no distension. There is no tenderness. Musculoskeletal: Normal range of motion. He exhibits no edema. Neurological: He is alert and oriented to person, place, and time. Skin: Skin is warm and dry. No rash noted. He is not diaphoretic. Psychiatric: He has a normal mood and affect. His behavior is normal. Nursing note and vitals reviewed. Assessment/Plan Acute UR I(primary encounter diagnosis) Cough Plan: COVID-19 (PCR MOLECULAR TESTING), COVID-19 (PCR MOLECULAR TESTING), benzonatate (TESSALON PERLES) 100 mg capsule Afebrile, well appearing, non-toxic, NAD. HR < 100, lungs CTAB, O2 sat 98%. COVID-19 ordered. Educated on the following at home care: -Take tessalon prn cough -Increase water intake -Take over the counter vitamin C/multivitamin with vitamin C -Take Tylenol as needed, avoid nsaids -REST -Wash hands often -Cover mouth when coughing -Wear mask with in the same room/car as others -Gargle with warm salt water as needed -Drink warm liquids as needed. -Throat lozenges as needed -Quarantine until your COVID results are back -Stay in your own bedroom and use a separate bathroom -Keep at least 6 feet from you and others -Avoid sharing personal household items, dishes, glasses, cups, towels -Clean high traffic/touch areas daily. These include but not limited to: doorknobs, refrigerator/cabinet handles, phones, keyboards, tablets, light switches. -Monitor your symptoms. Take your temperature 2 times daily. -Follow-up with PCP as needed, if no improvement. -Monitor your symptoms. Go to the ED if worsening symptoms: chest pain, difficulty breathing, coughing up blood, weakness, dizziness, passing out, AMS. -CDC handout provided Essential hypertension Plan: BP: 142/88. No cp, palpitations, sob, dizziness. Managed by PCP. Encouraged to follow-up with PCP and keep bp log. Watch blood pressure: check 2-3 times daily and log. Look for high numbers >= 130/80. Log reading. Follow up in 3 weeks Low salt Low caffeine diet Low alcohol Avoid tobacco products. Avoid decongestants Heart Healthy Exercise: total of 150 minutes of cardio: walking,swimming, hiking, biking every week. Heart healthy diet: low fat/carb/sugar diet; increase lean meat-chicken, turkey, fish; increase vegetables/fruits ( still be careful because elevated sugar level) Er--> chest pain, dizziness, passing out, fluttering of heart, shortness of breath. Pt ed/precautions given in detail regarding conditions/medicaitons. Er precautions given. Pt reportsunderstanding and agrees. rtc if s/s worsen or do not improve ; Plan of care, desired health behaviors, goals, Ddx, & any prescribed or OTC medications discussed with patient. Education resources & self management tools provided and reviewed with AVS. Patient/guardian/family verbalized understanding & agrees to plan of care. Barriers to care: NONE Ability to manage care: Good This visit did not involve counseling and coordination that comprised more than 50% of the visit time. Carla Marie MA - 04/11/2020 4:20 PM CDTPatient educated on plan of care for visit, swabbing technique, risks and benefits of test and length of time to receive results. Verbal consent obtained to perform test. CDC Fact Sheet for Patients nCoV Diagnostic Panel dated 01/06/2020 provided. documented in this encounter Plan of Treatment Name Type Priority Associated Diagnoses Date/Ti me COVID-19 (PCR MOLECULAR LAB Routine Cough 04/11/2020 4:28 PM CDT TESTING) Acute URI Name Type Priority Associated Diagnoses Order S chedule COVID-19 (PCR MOLECULAR LAB Routine Cough Expected: 04/11/2020, TESTING) Acute URI Expires: 2020 Health Maintenance Due Date Last Done Comments DTaP,Tdap,and Td Vaccines (1 - 1981 Tdap) Depression Screening 1982 COLONOSCOPY 2020 Zoster Recombinant Vaccine 2020 (SHINGRIX) (1 of 2) INFLUENZA VACCINE (Season Ended) 2020 PNEUMOCOCCAL 0-64 YEARS COMBINED Aged Out No longer eligible based on SERIES patient's age to complete this topic documented as of this encounter Results Not on filedocumented in this encounter Visit Diagnoses Diagnosis Cough - Primary Acute URI Acute upper respiratory infections of un specified site Essential hypertension Unspecified essential hypertension documented in this encounter [phone] (Work) documented as of this encounter"
[2020-04-13] MEDS ORDERED: ACETAMINOPHEN 325 MG TABLET ONE (00:16)
[2020-04-13] MEDS ORDERED: NA CHLORIDE 0.9% 250 ML ONE (00:16)
[2020-04-13] MEDS ORDERED: NA CHLORIDE 0.9% 1,000 ML ONE ×2 (00:16→04:33)
[2020-04-13] MEDS ORDERED: AZITHROMYCIN 500 MG INJ IVPB ONE (00:16)
[2020-04-13] MEDS ORDERED: CEFTRIAXONE/SWI 1gm 1 GM/10 ML SYR ONE (00:16)
[2020-04-13 00:36] LABS: Basophils % 0.4 % (0-1.3); Hematocrit 47.8 % (39.6-49.0); Lymphocytes % 16.4 % (15.3-44.8); MPV 8.7 fL (7.6-11.3); RBC Red Blood Cell Count 5.63 M/uL (4.33-5.43)
[2020-04-13 00:49] LABS: Albumin 3.1 g/dL (3.4-5.0); Bilirubin Total 0.6 mg/dL (0.2-1.0); Potassium 3.7 mmol/L (3.5-5.1); Protein, Total 7.6 g/dL (6.4-8.2)
--- NOTE | 2020-04-13 02:20 | ER ---
Nurse's Notes [facility] Name: Osmany Ojeda Age: 50 yrs Sex: Male : 1970 Arrival Date: 04/12/2020 Time: 22:53 Bed 5 Private MD: Diagnosis: Pneumonia due to other specified bacteria;Type 1 diabetes mellitus;Coronavirus infection, unspecified-bilateral pneumonia Presentation: 04/12 23:04 Chief complaint: Patient states: Cough, chills, body aches, N/V/D for 4 days. No ll1 appetite. Coronavirus screen: Surgical mask placed on patient. Patient moved to private room, placed in contact and droplet isolation with eye protection until further assessment. Patient reports a cough. Patient denies shortness of breath or difficulty breathing. Patient reports a measured and/or subjective temperature greater than 100.4F. Patient reports travel on a cruise ship or to a country the [facility]NOTE 3] currently lists as an affected area. Patient reports contact with known and/or suspected case of COVID-19. Ebola Screen: Patient denies travel to an Ebola-affected area in the 21 days before illness onset. Initial Sepsis Screen: Does the patient meet any 2 criteria? No. Patient's initial sepsis screen is negative. Risk Assessment: Do you want to hurt yourself or someone else? Patient reports no desire to harm self or others. Onset of symptoms was April 08, 2020. 23:04 Method Of Arrival: Ambulatory ll1 23:04 Acuity: JOSEPH 3 ll1 04/13 00:29 Initial Sepsis Screen: Does the patient have a suspected source of infection?. mg2 Historical: - Allergies: 04/12 23:06 Lisinopril; ll1 - PMHx: 23:06 acid reflux; Diabetes - IDDM; Hypertension; Sleep Apnea; PTSD; ll1 - PSHx: 23:06 None; ll1 - Immunization history:: Flu vaccine is up to date. - Social history:: Smoking status: Patient denies any tobacco usage or history of. Patient uses alcohol, only on a social basis. Patient/guardian denies using street drugs. - Family history:: not pertinent. Screenin/21 00:28 Abuse screen: Denies threats or abuse. Denies injuries from another. Nutritional mg2 screening: No deficits noted. Tuberculosis screening: No symptoms or risk factors identified. Fall Risk IV access (20 points). Assessment: 00:25 General: Appears in no apparent distress. comfortable, Behavior is calm, cooperative. mg2 Pain: Complains of pain in chest Pain does not radiate. Pain currently is 2 out of 10 on a pain scale. Quality of pain is described as aching, Pain began gradually, 1 weeks ago Is intermittent. Neuro: Level of Consciousness is awake, alert, obeys commands, Oriented to person, place, time, situation. Cardiovascular: Capillary refill < 3 seconds Patient's skin is warm and dry. Respiratory: Reports cough that is productive, Airway is patent Trachea midline Respiratory effort is even, unlabored, Respiratory pattern is regular, symmetrical. GI: Abdomen is non-distended, Reports nausea, vomiting. : No signs and/or symptoms were reported regarding the genitourinary system. EENT: No signs and/or symptoms were reported regarding the EENT system. Derm: Skin is intact, is healthy with good turgor, Skin is pink, warm \T\ dry. normal. Musculoskeletal: Circulation, motion, and sensation intact. Capillary refill < 3 seconds. 00:25 Reassessment: chest pain was caused by severe coughing. mg2 01:30 Reassessment: Patient appears in no apparent distress at this time. Patient and/or mg2 family updated on plan of care and expected duration. Pain level reassessed. Patient is alert, oriented x 3, equal unlabored respirations, skin warm/dry/pink. 02:30 Reassessment: Patient appears in no apparent distress at this time. Patient and/or mg2 family updated on plan of care and expected duration. Pain level reassessed. Patient is alert, oriented x 3, equal unlabored respirations, skin warm/dry/pink. 03:34 Reassessment: Patient appears in no apparent distress at this time. Patient and/or mg2 family updated on plan of care and expected duration. Pain level reassessed. Patient is alert, oriented x 3, equal unlabored respirations, skin warm/dry/pink. patient informed about the plan for hospitalization. 06:36 Reassessment: tried to call for report, floor nurse said to give the report to the new mg2 shift. Vital Signs: 04/12 23:04 Pulse 84; Resp 18; Temp 100.0; Pulse Ox 97% ; Pain 10/10; ll1 23:07 BP 187 / 81; ll1 04/13 00:27 BP 144 / 75; Pulse 78; Resp 18; Temp 102(O); Pulse Ox 96% on R/A; mg2 01:33 BP 140 / 70; Pulse 78; Resp 18; Temp 101(O); mg2 03:33 BP 150 / 81; Pulse 75; Resp 18; Temp 100.9; Pulse Ox 100% on R/A; mg2 06:20 BP 161 / 74; Pulse 70; Resp 18; Temp 102.1; Pulse Ox 100% on R/A; mg2 07:00 BP 138 / 71; Pulse 70; Resp 18; Pulse Ox 98% ; sv ED Course: 04/12 22:53 Patient arrived in ED. es 23:05 Triage completed. ll1 23:06 Arm band placed on. ll1 23:08 Arjun Velasquez, DELIO is Primary Nurse. mg2 23:13 Gunnar Bustos MD is Attending Physician. monica 04/13 00:20 Inserted saline lock: 20 gauge in right forearm, using aseptic technique. Blood mg2 collected. by CHRISTEN Oakes Tech. 00:28 Patient has correct armband on for positive identification. mg2 00:28 No provider procedures requiring assistance completed. mg2 01:48 Chest Single View XRAY In Process Unspecified. EDMS 02:16 Shawna Holden MD is Hospitalizing Provider. monica 03:45 Patient admitted, IV remains in place. wh Administered Medications: 00:25 Drug: Tylenol 650 mg Route: PO; mg2 02:45 Follow up: Response: No adverse reaction mg2 00:25 Drug: NS 0.9% 1000 ml Route: IV; Rate: 1 bolus; Site: right forearm; mg2 03:39 Follow up: Response: No adverse reaction; IV Status: Completed infusion; IV Intake: mg2 1000ml 00:36 Drug: Zithromax 500 mg Route: IVPB; Infused Over: 1 hrs; Site: right forearm; mg2 03:38 Follow up: Response: No adverse reaction; IV Status: Completed infusion mg2 00:37 Drug: Rocephin 1 grams Route: IV; Rate: per protocol; Site: right forearm; mg2 03:39 Follow up: Response: No adverse reaction; IV Status: Completed infusion mg2 02:45 Drug: Albuterol HFA Inhaler 4 puffs Route: Inhalation; mg2 03:38 Follow up: Response: No adverse reaction mg2 Intake: 03:39 IV: 1000ml; Total: 1000ml. mg2 Outcome: 02:19 Decision to Hospitalize by Provider. [facility] 03:45 Admitted to ER Hold. Please see [facility] for further documentation. 03:45 Condition: stable 03:45 Instructed on the need for admit. 06:59 Admitted to Tele accompanied by tech, via wheelchair, room 416, with chart, Report mg2 called to DELIO Dean 06:59 Condition: stable 06:59 Instructed on the need for admit, Demonstrated understanding of instructions. 07:09 Patient left the ED. sv Signatures: Dispatcher [employer] Carla Crane RN RN sv Gunnar Bustos MD MD cha Salyer, Brandy Corrales Arjun Velasquez RN RN mg2 Tyrone Saravia RN RN ll1 Corrections: (The following items were deleted from the chart) 06:48 00:25 Pain: Complains of pain in chest Pain does not radiate. Pain currently is 2 out mg2 of 10 on a pain scale. Quality of pain is described as aching, Pain began gradually, 1 weeks ago Is intermittent, mg2
--- NOTE | 2020-04-13 02:20 | EDPHYS ---
Physician Documentation [facility] Name: Osmany Ojeda Age: 50 yrs Sex: Male : 1970 Arrival Date: 04/12/2020 Time: 22:53 Bed 5 Private MD: CHRISTEN Physician Gunnar Bustos HPI: 04/12 23:41 This 50 yrs old Male presents to ER via Ambulatory with complaints of Cough, monica Vomiting/Diarrhea, Chills, body ache. 23:41 The patient or guardian reports cough, difficulty breathing, flu symptoms, arthralgias, monica low-grade fever, myalgias, no appetite. Onset: The symptoms/episode began/occurred 3 day(s) ago. Severity of symptoms: At their worst the symptoms were mild. Modifying factors: The symptoms are alleviated by nothing, the symptoms are aggravated by nothing. Associated signs and symptoms: The patient has no apparent associated signs or symptoms. The patient has not experienced similar symptoms in the past. Historical: - Allergies: 23:06 Lisinopril; ll1 - PMHx: 23:06 acid reflux; Diabetes - IDDM; Hypertension; Sleep Apnea; PTSD; ll1 - PSHx: 23:06 None; ll1 - Immunization history:: Flu vaccine is up to date. - Social history:: Smoking status: Patient denies any tobacco usage or history of. Patient uses alcohol, only on a social basis. Patient/guardian denies using street drugs. - Family history:: not pertinent. ROS: 23:41 Eyes: Negative for injury, pain, redness, and discharge, ENT: Negative for injury, monica pain, and discharge, Neck: Negative for injury, pain, and swelling, Cardiovascular: Negative for chest pain, palpitations, and edema, Back: Negative for injury and pain, : Negative for injury, bleeding, discharge, and swelling, MS/Extremity: Negative for injury and deformity, Skin: Negative for injury, rash, and discoloration, Neuro: Negative for headache, weakness, numbness, tingling, and seizure, Psych: Negative for depression, anxiety, suicide ideation, homicidal ideation, and hallucinations, Allergy/Immunology: Negative for hives, rash, and allergies, Endocrine: Negative for neck swelling, polydipsia, polyuria, polyphagia, and marked weight changes, Hematologic/Lymphatic: Negative for swollen nodes, abnormal bleeding, and unusual bruising. 23:41 Constitutional: Positive for body aches, chills, fatigue, fever, malaise, poor PO intake. 23:41 Respiratory: Positive for cough, shortness of breath, at rest. 23:41 Abdomen/GI: Positive for nausea and vomiting, diarrhea. Exam: 23:41 Head/Face: Normocephalic, atraumatic. Eyes: Pupils equal round and reactive to light, monica extra-ocular motions intact. Lids and lashes normal. Conjunctiva and sclera are non-icteric and not injected. Cornea within normal limits. Periorbital areas with no swelling, redness, or edema. ENT: Nares patent. No nasal discharge, no septal abnormalities noted. Tympanic membranes are normal and external auditory canals are clear. Oropharynx with no redness, swelling, or masses, exudates, or evidence of obstruction, uvula midline. Mucous membranes moist. Neck: Trachea midline, no thyromegaly or masses palpated, and no cervical lymphadenopathy. Supple, full range of motion without nuchal rigidity, or vertebral point tenderness. No Meningismus. Chest/axilla: Normal chest wall appearance and motion. Nontender with no deformity. No lesions are appreciated. Cardiovascular: Regular rate and rhythm with a normal S1 and S2. No gallops, murmurs, or rubs. Normal PMI, no JVD. No pulse deficits. Abdomen/GI: Soft, non-tender, with normal bowel sounds. No distension or tympany. No guarding or rebound. No evidence of tenderness throughout. Back: No spinal tenderness. No costovertebral tenderness. Full range of motion. Male : Normal genitalia with no discharge or lesions. Skin: Warm, dry with normal turgor. Normal color with no rashes, no lesions, and no evidence of cellulitis. MS/ Extremity: Pulses equal, no cyanosis. Neurovascular intact. Full, normal range of motion. Neuro: Awake and alert, GCS 15, oriented to person, place, time, and situation. Cranial nerves II-XII grossly intact. Motor strength 5/5 in all extremities. Sensory grossly intact. Cerebellar exam normal. Normal gait. Psych: Awake, alert, with orientation to person, place and time. Behavior, mood, and affect are within normal limits. 23:41 Constitutional: The patient appears febrile. 23:41 Respiratory: the patient does not display signs of respiratory distress, Respirations: normal, no acute changes, Breath sounds: are clear throughout, Respiratory rate: 18 Vital Signs: 23:04 Pulse 84; Resp 18; Temp 100.0; Pulse Ox 97% ; Pain 10/10; ll1 23:07 BP 187 / 81; ll1 04/13 00:27 BP 144 / 75; Pulse 78; Resp 18; Temp 102(O); Pulse Ox 96% on R/A; mg2 01:33 BP 140 / 70; Pulse 78; Resp 18; Temp 101(O); mg2 03:33 BP 150 / 81; Pulse 75; Resp 18; Temp 100.9; Pulse Ox 100% on R/A; mg2 06:20 BP 161 / 74; Pulse 70; Resp 18; Temp 102.1; Pulse Ox 100% on R/A; mg2 07:00 BP 138 / 71; Pulse 70; Resp 18; Pulse Ox 98% ; sv MDM: 04/12 23:14 Patient medically screened. [facility] 23:43 Data reviewed: vital signs, nurses notes, lab test result(s), radiologic studies, plain monica films. 23:44 Differential Diagnosis: Bronchitis Influenza Upper Respiratory Infection Sinusitis monica Pharyngitis Viral Syndrome Other covid positive. Data interpreted: Pulse oximetry: on room air is 97 %. Test interpretation: by ED physician or midlevel provider: plain radiologic studies. Counseling: I had a detailed discussion with the patient and/or guardian regarding: the historical points, exam findings, and any diagnostic results supporting the discharge/admit diagnosis, lab results, radiology results. Medication response: acetaminophen administration has lowered the patient's temperature. 04/12 23:41 Order name: CBC with Diff; Complete Time: 01:31 [facility] 04/12 23:41 Order name: Comprehensive Metabolic Panel; Complete Time: 01: [facility] 04/12 23:41 Order name: Blood Culture Adult (2) [facility] 04/13 02:46 Order name: Procalcitonin [facility] 04/13 02:46 Order name: Comprehensive Metabolic Panel [facility] 04/13 02:46 Order name: Comprehensive Metabolic Panel [facility] 04/13 02:46 Order name: Lactate [facility] 04/13 02:46 Order name: Lactate [facility] 04/13 02:46 Order name: Lipid Profile [facility] 04/13 02:46 Order name: Lipid Profile [facility] 04/13 02:47 Order name: Magnesium [facility] 04/13 02:47 Order name: Magnesium [facility] 04/13 02:47 Order name: NT PRO-BNP [facility] 04/13 02:47 Order name: NT PRO-BNP [facility] 04/12 23:41 Order name: Chest Single View XRAY monica 04/13 02:47 Order name: Phosphorus [facility] 04/13 02:47 Order name: Phosphorus [facility] 04/13 02:47 Order name: Protime (+INR) [facility] 04/13 02:47 Order name: Protime (+INR) [facility] 04/13 02:47 Order name: PTT, Activated Partial Thromb [facility] 04/13 02:47 Order name: PTT, Activated Partial Thromb [facility] 04/13 02:47 Order name: Comprehensive Metabolic Panel [facility] 04/13 02:47 Order name: Lactate [facility] 04/13 02:47 Order name: Magnesium EDMS 04/13 02:47 Order name: Phosphorus EDMS 04/13 02:48 Order name: CBC with Automated Diff [facility] 04/13 02:48 Order name: NT PRO-BNP [facility] 04/13 02:46 Order name: CONS Physician Consult [facility] 04/13 02:48 Order name: Heart Healthy EDMS Administered Medications: 04/13 00:25 Drug: Tylenol 650 mg Route: PO; mg2 02:45 Follow up: Response: No adverse reaction mg2 00:25 Drug: NS 0.9% 1000 ml Route: IV; Rate: 1 bolus; Site: right forearm; mg2 03:39 Follow up: Response: No adverse reaction; IV Status: Completed infusion; IV Intake: mg2 1000ml 00:36 Drug: Zithromax 500 mg Route: IVPB; Infused Over: 1 hrs; Site: right forearm; mg2 03:38 Follow up: Response: No adverse reaction; IV Status: Completed infusion mg2 00:37 Drug: Rocephin 1 grams Route: IV; Rate: per protocol; Site: right forearm; mg2 03:39 Follow up: Response: No adverse reaction; IV Status: Completed infusion mg2 02:45 Drug: Albuterol HFA Inhaler 4 puffs Route: Inhalation; mg2 03:38 Follow up: Response: No adverse reaction mg2 Disposition: 04/13/20 02:19 Hospitalization ordered by Shawna Holden for Inpatient Admission. Preliminary diagnosis are Pneumonia due to other specified bacteria, Type 1 diabetes mellitus, Coronavirus infection, unspecified - bilateral pneumonia. - Bed requested for Telemetry/MedSurg (Inpatient). - Status is Inpatient Admission. sv - Condition is Fair. - Problem is new. - Symptoms have improved. Signatures: Dispatcher [employer] EDCarla Laboy RN RN Louis, Nadine, RN Gunnar Machuca MD MD cha Gardose, Michele, RN RN [facility] Tyrone Saravia RN RN ll1 Corrections: (The following items were deleted from the chart) 03:06 02:19 Hospitalization Ordered by Shawna Holden MD for Inpatient Admission. Preliminary diagnosis is Pneumonia due to other specified bacteria; Type 1 diabetes mellitus; Coronavirus infection, unspecified - bilateral pneumonia. Bed requested for Intensive Care Unit. Status is Inpatient Admission. Condition is Fair. Problem is new. Symptoms have improved. [facility] 06:08 03:06 04/13/2020 02:19 Hospitalization Ordered by Shawna Holden MD for Inpatient mw Admission. Preliminary diagnosis is Pneumonia due to other specified bacteria; Type 1 diabetes mellitus; Coronavirus infection, unspecified - bilateral pneumonia. Bed requested for [facility] ER HOLD. Status is Inpatient Admission. Condition is Fair. Problem is new. Symptoms have improved. 07:09 06:08 04/13/2020 02:19 Hospitalization Ordered by Shawna Holden MD for Inpatient sv Admission. Preliminary diagnosis is Pneumonia due to other specified bacteria; Type 1 diabetes mellitus; Coronavirus infection, unspecified - bilateral pneumonia. Bed requested for Telemetry/MedSurg (Inpatient). Status is Inpatient Admission. Condition is Fair. Problem is new. Symptoms have improved.
[2020-04-13] MEDS ORDERED: ALBUTEROL 2.5 MG/3 ML NEB SOL NEB PRN (02:32)
[2020-04-13] MEDS ORDERED: ACETAMINOPHEN 500 MG TAB PO PRN (02:32)
[2020-04-13] MEDS ORDERED: ONDANSETRON 4 MG/2 ML VIAL IV PRN (02:32)
[2020-04-13] MEDS ORDERED: ALBUTEROL INHALER 60 PUFF/8 GM IH PRN (02:32)
[2020-04-13] MEDS ORDERED: ALBUTEROL INHALER 60 PUFF/8 GM IH ONE (02:41)
[2020-04-13] MEDS ORDERED: NA CHLORIDE 0.9% 1,000 ML IV SCH (03:00)
[2020-04-13 03:58] VITALS: BMI 28.4
[2020-04-13] MEDS ORDERED: dexAMETHasone 4 MG/ML VIAL ONE (04:33)
[2020-04-13] MEDS ORDERED: ACETAMINOPHEN 500 MG TAB ONE (04:33)
[2020-04-13] MEDS ORDERED: HYDROCODONE/CHLORPHEN 5 ML/OSYR PO PRN (05:57)
[2020-04-13] MEDS: dexAMETHasone 10 MG/ML VIAL IV SCH ×4 (06:00→23:53)
[2020-04-13 06:46] LABS: Albumin 2.7 g/dL (3.4-5.0); Bilirubin Total 0.6 mg/dL (0.2-1.0); Magnesium 2.5 mg/dL (1.8-2.4); Phosphorus 2.3 mg/dL (2.5-4.9); Potassium 3.9 mmol/L (3.5-5.1); Protein, Total 6.9 g/dL (6.4-8.2)
[2020-04-13 07:47] LABS: Absolute Lymphocytes (CBC) 0.6 K/uL (0.7-4.9); Basophils % 0.4 % (0-1.3); Hematocrit 45.2 % (39.6-49.0); Lymphocytes % 8.8 % (15.3-44.8); MPV 8.8 fL (7.6-11.3); RBC Red Blood Cell Count 5.27 M/uL (4.33-5.43)
[2020-04-13] MEDS ORDERED: PNEUMOCOCCAL VACCINE 0.5 ML IMVAC ONE (08:00)
[2020-04-13] MEDS: POTASS/SODIUM PHOSPHATE 1 PKT POWD.PACK PO SCH ×3 (08:06→10:05)
[2020-04-13] MEDS: FUROSEMIDE 20 MG/ 2ML VIAL IV SCH ×2 (08:06→08:54)
[2020-04-13] MEDS: ENOXAPARIN 40 MG/0.4 ML SQ SCH ×2 (08:06→19:50)
[2020-04-13] MEDS ORDERED: AZITHROMYCIN IV 500 MG in NA CHLORIDE 0.9% 250 ML IVPB SCH (09:00)
[2020-04-13] MEDS ORDERED: CEFTRIAXONE 1 GM/NS 50 ML 1 GM/50 ML BAG IV SCH (09:00)
[2020-04-13] MEDS ORDERED: POTASSIUM CL SA 10 MEQ TAB PO ONE (09:00)
--- NOTE | 2020-04-13 09:24 | P.CNS ---
Date of Consult: 04/13/20 Reason for Consult: Rodriguez virus infection Chief Complaint: Cough fever chills History of Present Illness: Patient is 50 years of age has recently been exposed to people tested positive for rodriguez virus was exposed to people in the the home we also travel to [place] patient did not practice social distance seeing he is doing well with came in with fever coughing he is in no respiratory distress Allergies lisinopril Allergy (Verified 04/13/20 04:06) Unknown Home Medications: Glipizide [Glucotrol Xl] 10 mg PO BIDWM 04/26/12 Hydrochlorothiazide 12.5 mg PO DAILY 04/26/12 Lisinopril 20 mg PO DAILY 04/26/12 Metformin HCl 1,000 mg PO BIDWM 04/26/12 Omeprazole 20 mg PO DAILY 04/26/12 Ciprofloxacin HCl [Cipro] 500 mg PO Q12H #20 tablet 04/28/12 Metronidazole [Flagyl] 500 mg PO Q6H #40 tablet 04/28/12 - Past Medical/Surgical History Diabetic: Yes -: HTN -: IDDM -: Sleep Apnea -: GERD -: PTSD - Social History Smoking Status: Never smoker Alcohol use: Yes CD- Drugs: No Caffeine use: No Place of Residence: Home Review of Systems Unremarkable Physical Examination Temp Pulse Resp BP Pulse Ox 99.3 F 66 18 149/73 H 94 04/13/20 08:00 04/13/20 08:06 04/13/20 08:00 04/13/20 08:06 04/13/20 08:00 General: Alert, Oriented x3 Respiratory: Clear to auscultation bilaterally Cardiovascular: No edema, Regular rate/rhythm Laboratory Data (last 24 hrs) 04/13/20 00:20: Sodium 135 L, Potassium 3.7, BUN 22 H, Creatinine 1.09, Glucose 157 H, Total Bilirubin 0.6, AST 21, ALT 17, Alkaline Phosphatase 76 04/13/20 00:20: WBC 6.3, Hgb 16.4, Hct 47.8, Plt Count 265 - Problems (1) Coronavirus infection Current Visit: Yes Status: Acute Plan: Patient is 50 years of age admitted 4 day history of fever chills bodyaches oxygenation stable doing well labs reviewed he has diffuse interstitial changes on his x-ray continue with steroids change to p.o. levofloxacin Dc IV fluids IV Lasix possible discharge tomorrow
--- NOTE | 2020-04-13 12:26 | RAD REPORT ---
EXAM DESCRIPTION: Beata Single View04/13/2020 1:48 am CLINICAL HISTORY: Chest pain COMPARISON: 2012 FINDINGS: Moderate bilateral patchy lung opacities The heart is normal size IMPRESSION: Moderate bilateral patchy opacities likely pneumonia
--- NOTE | 2020-04-14 00:59 | P.HP ---
Certification for Inpatient Patient admitted to: Inpatient With expected LOS: >2 Midnights Patient will require the following post-hospital care: None Practitioner: I am a practitioner with admitting privileges, knowledge of patient current condition, hospital course, and medical plan of care. Services: Services provided to patient in accordance with Admission requirements found in Title 42 Section 412.3 of the Code of Federal Regulations Patient History Date of Service: 04/13/20 Reason for admission: Cough fever chills History of Present Illness: Patient is a 50-year-old gentleman who came to the hospital with fever and difficulty breathing and persistent cough. Patient has been around multiple people who have tested positive for COVID-19. He went to a and afterwards multiple people were positive. 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 Patient had not been feeling well so he came to the emergency room and his workup in the emergency room have rooms revealed pulmonary infiltrates. Patient was diagnose with pneumonia. He has tested positive for COVID-19. At this time, patient be admitted to the hospital for further evaluation. Allergies lisinopril Allergy (Verified 04/13/20 04:06) Unknown Home Medications: Amlodipine [Norvasc] 10 mg PO BID 04/13/20 Atorvastatin Calcium 1 tab PO BEDTIME 04/13/20 Citalopram Hydrobromide [Citalopram HBr] 1 tab PO DAILY 04/13/20 Empagliflozin [Jardiance] 12.5 mg PO DAILY 04/13/20 Gabapentin 1 tab PO DAILY 04/13/20 Insulin Aspart [Insulin Aspart Penfill] 15 units SQ TID 04/13/20 Insulin Glargine,Hum.rec.anlog [Lantus] 15 units SQ BID 04/13/20 Losartan Potassium 1 tab PO BID 04/13/20 hydrOXYzine HCL [Atarax*] 1 tab PO DAILY 04/13/20 - Past Medical/Surgical History Has patient received pneumonia vaccine in the past: No Diabetic: Yes -: HTN -: IDDM -: Sleep Apnea -: GERD -: PTSD Past Surgical History: Patient denies surgical history - Family History Father Family History: Reviewed- Non-Contributory - Social History Smoking Status: Former smoker Alcohol use: Yes CD- Drugs: No Caffeine use: No Place of Residence: Home Review of Systems 10-point ROS is otherwise unremarkable Physical Examination - Vital Signs Temperature: 97.5 F Blood Pressure: 166/76 Pulse: 64 Respirations: 18 Pulse Ox (%): 97 - Physical Exam General: Alert, In no apparent distress, Oriented x3 HEENT: Atraumatic, PERRLA, Mucous membr. moist/pink, EOMI, Sclerae nonicteric Neck: Supple, 2+ carotid pulse no bruit, No LAD, Without JVD or thyroid abnormality Respiratory: Diminished, Rhonchi/gurgles Cardiovascular: Regular rate/rhythm, Normal S1 S2, No murmurs Gastrointestinal: Normal bowel sounds, Soft and benign, Non-distended, No tenderness Musculoskeletal: No clubbing, No swelling, No tenderness Integumentary: No rashes Neurological: Normal gait, Normal speech, Normal strength at 5/5 x4 extr, Normal tone, Sensation intact, Cranial nerves 3-12 intact, Normal affect Lymphatics: No axilla or inguinal lymphadenopathy - Studies Laboratory Data (last 24 hrs) 04/13/20 00:20: Sodium 135 L, Potassium 3.7, BUN 22 H, Creatinine 1.09, Glucose 157 H, Total Bilirubin 0.6, AST 21, ALT 17, Alkaline Phosphatase 76 Assessment & Plan - Problems (Diagnosis) (1) COVID-19 virus infection Current Visit: Yes Status: Acute - Plan 1. Continue with IV antibiotics 2. Droplet precautions 3. Repeat chest x-ray 4. CT scan of the chest if pneumonia is not improved 5. Pulmonary consultation 6. Continue with inhaler therapy 7. O2 per protocol 8. Continue with gentle hydration 9. Repeat labs including CBC and renal function in a.m. 10. GI and DVT prophylaxis Discharge Plan: Home Plan to discharge in: Greater than 2 days - Advance Directives Does patient have a Living Will: No Does patient have a Durable POA for Healthcare: No - Code Status/Comfort Care Code Status Assessed: Yes Code Status: Full Code Critical Care: No Time Spent Managing PTS Care (In Minutes): 40
[2020-04-14 04:15] LABS: Absolute Lymphocytes (CBC) 0.7 K/uL (0.7-4.9); Basophils % 0.2 % (0-1.3); Hematocrit 42.5 % (39.6-49.0); Lymphocytes % 8.8 % (15.3-44.8); MPV 9.1 fL (7.6-11.3); RBC Red Blood Cell Count 4.91 M/uL (4.33-5.43)
[2020-04-14 04:30] LABS: Protime INR 1.12
[2020-04-14 04:40] LABS: Albumin 2.5 g/dL (3.4-5.0); Bilirubin Total 0.5 mg/dL (0.2-1.0); Magnesium 2.5 mg/dL (1.8-2.4); Phosphorus 3.8 mg/dL (2.5-4.9); Potassium 4.2 mmol/L (3.5-5.1); Protein, Total 6.6 g/dL (6.4-8.2)
[2020-04-14] MEDS: dexAMETHasone 10 MG/ML VIAL IV SCH (06:25)
--- NOTE | 2020-04-14 07:30 | P.PN ---
Subjective Date of Service: 04/14/20 Subjective: Improving Patient continues to do well with no new complaints. Review of Systems 10-point ROS is otherwise unremarkable Physical Examination - Vital Signs Temperature: 97.7 F Blood Pressure: 128/69 Pulse: 61 Respirations: 17 Pulse Ox (%): 96 - Physical Exam General: Alert, In no apparent distress, Oriented x3 Respiratory: Clear to auscultation bilaterally, Normal air movement Cardiovascular: Regular rate/rhythm, Normal S1 S2 Gastrointestinal: Normal bowel sounds, Soft and benign, Non-distended, No tenderness Musculoskeletal: No clubbing, No swelling, No tenderness Neurological: Normal speech, Normal tone, Sensation intact, Cranial nerves 3-12 intact - Studies Medications List Reviewed: Yes Assessment & Plan - Problems (Diagnosis) (1) COVID-19 virus infection Status: Acute - Plan 1. Continue with IV antibiotics 2. Droplet precautions 3. Repeat chest x-ray 4. CT scan of the chest if pneumonia is not improved 5. Pulmonary consultation appreciated 6. Continue with inhaler therapy 7. O2 per protocol 8. Continue with gentle hydration 9. Repeat labs including CBC and renal function in a.m. 10. GI and DVT prophylaxis Discharge Plan: Home Plan to discharge in: Greater than 2 days - Advance Directives Does patient have a Living Will: No Does patient have a Durable POA for Healthcare: No - Code Status/Comfort Care Code Status: Full Code Critical Care: No Time Spent Managing PTS Care (In Minutes): 25
[2020-04-14] MEDS: ENOXAPARIN 40 MG/0.4 ML SQ SCH (07:45)
[2020-04-14] MEDS: FUROSEMIDE 20 MG/ 2ML VIAL IV SCH (07:45)
[2020-04-14] MEDS ORDERED: levoFLOXacin 500 MG TAB PO SCH (09:00)
[2020-04-14 09:05] VITALS: O2SAT 93
--- NOTE | 2020-04-14 12:04 | P.DS ---
Admission Date: 04/13/20 Discharge Date: 04/14/20 Primary Care Provider: unknown Disposition: ROUTINE DISCHARGE Discharge Condition: GOOD Reason for Admission: Cough fever chills Consultations: Pulmonary-Dr. Salter Procedures: CXR: FINDINGS: Moderate bilateral patchy lung opacities The heart is normal size IMPRESSION: Moderate bilateral patchy opacities likely pneumonia Medical problem list: Shortness of breath secondary to bilateral viral pneumonia positive for COVID 19 Hypertension Diabetes mellitus type 2 insulin-dependent with hyperglycemia Hyperlipidemia Diabetic neuropathy PTSD Brief History of Present Illness: 50 yo HM with history of DM, HTN presented to the emergency room with cough, shortness of breath. Chest x-ray showed bilateral pneumonia. Patient recently exposed to people positive for COVID. Patient was admitted for further evaluation and treatment. Hospital Course: 50-year-old male presented to emergency room with cough and shortness of breath. Patient was exposed to COVID. Patient found to be positive for COVID. X-ray showed bilateral pneumonia. Patient was admitted for further evaluation and treatment. Patient seen by pulmonology. Patient was not hypoxic. Patient has improved. At discharge patient will continue with Zithromax 250 mg daily for 5 days. Patient will be provided Tessalon Perles 100 mg 3 times a day as needed for cough, Mucinex 6 mg twice daily as needed for congestion. Patient will also be provided Pro air 2 puffs 3 times a day as needed for shortness of breath. Patient will be provided information on COVID 19 infection. Patient will need to remain quarantined at home. Infection control will reach out to the health department to follow his progress. Education on COVID 19 including CDC recommendations and guidelines will be provided. Recommend follow up with pulmonology and PCP in 1 week to follow up this hospitalization. This will need to be done as a phone visit. Patient with underlying diabetes mellitus type 2 insulin dependent. At discharge patient will continue with his current medications of Lantus 15 units subcu twice daily and Humalog. Patient also takes Jardiance. Will recommend to discontinue Jardiance at this time and continue with his Lantus. Recommend to monitor blood sugars at least twice daily. Recommend to maintain blood sugar less 140 fasting and less Center after meals. Further adjustment can be done by his PCP. Patient with hypertension. At discharge he will continue with Norvasc 10 mg daily and losartan 50 mg 1 pill twice daily. Recommend to maintain blood pressure less 150/80. Further adjustment can be done by his PCP. Patient with hyperlipidemia. At discharge he will continue with Lipitor 20 mg daily. Patient with history of PTSD. Patient may continue with Celexa 20 mg daily. Patient with diabetic neuropathy. At discharge he may continue with gabapentin 300 mg at bedtime. Vital Signs/Physical Exam: Temp Pulse Resp BP Pulse Ox 96.7 F L 55 18 133/59 L 93 04/14/20 11:39 04/14/20 11:39 04/14/20 11:39 04/14/20 11:39 04/14/20 11:39 General: Alert, In no apparent distress, Cooperative HEENT: Atraumatic Respiratory: Other (Patient breathing appropriately. Patient able to talk without short of breath.) Cardiovascular: Other (Vital signs stable at this time per machine.) Integumentary: No tenderness/swelling, No cyanosis Neurological: Normal speech, Normal strength at 5/5 x4 extr, Normal tone, Normal affect Laboratory Data at Discharge: WBC 7.8 K/uL (4.3-10.9) D 04/14/20 03:42 Hgb 14.4 g/dL (13.6-17.9) 04/14/20 03:42 Hct 42.5 % (39.6-49.0) 04/14/20 03:42 Plt Count 274 K/uL (152-406) 04/14/20 03:42 PT 13.2 SECONDS (9.5-12.5) H 04/14/20 03:42 INR 1.12 04/14/20 03:42 APTT 34.5 SECONDS (24.3-36.9) 04/14/20 03:42 Sodium 133 mmol/L (136-145) L 04/14/20 03:42 Potassium 4.2 mmol/L (3.5-5.1) 04/14/20 03:42 BUN 21 mg/dL (7-18) H 04/14/20 03:42 Creatinine 0.99 mg/dL (0.55-1.3) 04/14/20 03:42 Glucose 210 mg/dL (74-106) H 04/14/20 03:42 Phosphorus 3.8 mg/dL (2.5-4.9) D 04/14/20 03:42 Magnesium 2.5 mg/dL (1.8-2.4) H 04/14/20 03:42 Total Bilirubin 0.5 mg/dL (0.2-1.0) 04/14/20 03:42 AST 16 U/L (15-37) 04/14/20 03:42 ALT 14 U/L (12-78) 04/14/20 03:42 Alkaline Phosphatase 64 U/L (45-117) 04/14/20 03:42 Triglycerides 84 mg/dL (<150) 04/14/20 03:42 Cholesterol 82 mg/dL (<200) 04/14/20 03:42 HDL Cholesterol 31 mg/dL (40-60) L 04/14/20 03:42 Cholesterol/HDL Ratio 2.65 04/14/20 03:42 Home Medications: Amlodipine [Norvasc*] 10 mg PO BID 04/13/20 Atorvastatin Calcium 1 tab PO BEDTIME 04/13/20 Citalopram Hydrobromide [Citalopram HBr] 1 tab PO DAILY 04/13/20 Gabapentin 1 tab PO DAILY 04/13/20 Insulin Aspart [Insulin Aspart Penfill] 15 units SQ TID 04/13/20 Insulin Glargine,Hum.rec.anlog [Lantus] 15 units SQ BID 04/13/20 Losartan Potassium 1 tab PO BID 04/13/20 hydrOXYzine HCL [Atarax*] 1 tab PO DAILY 04/13/20 Albuterol Inhaler [Ventolin Inhaler*] 2 puff IH TID PRN #1 hfa.aer.ad 04/14/20 Azithromycin Tab [Zithromax*] 250 mg PO DAILY #5 tab 04/14/20 Benzonatate [Tessalon Perle] 100 mg PO TID PRN #15 cap 04/14/20 Guaifenesin [Mucinex] 600 mg PO BID PRN #15 tablet.er 04/14/20 New Medications: Guaifenesin [Mucinex] 600 mg PO BID PRN #15 tablet.er PRN Reason: Cough Benzonatate [Tessalon Perle] 100 mg PO TID PRN #15 cap PRN Reason: Cough Albuterol Inhaler [Ventolin Inhaler*] 2 puff IH TID PRN #1 hfa.aer.ad PRN Reason: Shortness Of Breath Azithromycin Tab [Zithromax*] 250 mg PO DAILY #5 tab Patient Discharge Instructions: 1. Recommend follow up with PCP in 1 week to follow up this hospitalization. 2. Patient presented with cough and shortness of breath. Patient was exposed to COVID. Patient found to be positive for COVID. X-ray showed bilateral pneumonia. Patient was admitted for further evaluation and treatment. Patient seen by pulmonology. Patient was not hypoxic. Patient has improved. At discharge patient will continue with Zithromax 250 mg daily for 5 days. Patient will be provided Tessalon Perles 100 mg 3 times a day as needed for cough, Mucinex 6 mg twice daily as needed for congestion. Patient will also be provided Pro air 2 puffs 3 times a day as needed for shortness of breath. Patient will be provided information on COVID 19 infection. Patient will need to remain quarantined at home. Infection control will reach out to the health department to follow his progress. Education on COVID 19 including CDC recommendations and guidelines will be provided. Recommend follow up with pulmonology and PCP in 1 week to follow up this hospitalization. This will need to be done as a phone visit. 3. Patient with underlying diabetes mellitus type 2 insulin dependent. At discharge patient will continue with his current medications of Lantus 15 units subcu twice daily and Humalog. Patient also takes Jardiance. Will recommend to discontinue Jardiance at this time and continue with his Lantus. Recommend to monitor blood sugars at least twice daily. Recommend to maintain blood sugar less 140 fasting and less Center after meals. Further adjustment can be done by his PCP. 4. Patient with hypertension. At discharge he will continue with Norvasc 10 mg daily and losartan 50 mg 1 pill twice daily. Recommend to maintain blood pressure less 150/80. Further adjustment can be done by his PCP. 5. Patient with hyperlipidemia. At discharge he will continue with Lipitor 20 mg daily. 6. Patient with history of PTSD. Patient may continue with Celexa 20 mg daily. 7. Patient with diabetic neuropathy. At discharge he may continue with gabapentin 300 mg at bedtime. Diet: ADA Activity: Ad marcin Time spent managing pt's care (in minutes): 55
[2020-04-14] MEDS ORDERED: INSULIN GLARGINE 100 UNITS/ML SQ ONE (12:11)
--- NOTE | 2020-04-14 12:40 | P.PN ---
Subjective Date of Service: 04/14/20 Primary Care Provider: unknown Chief Complaint: Rodriguez virus positive pneumonia Subjective: Improving (Patient is doing well no complaints room-air saturation satisfactory) Review of Systems is unable to be obtained Physical Examination - Vital Signs Temperature: 96.7 F Blood Pressure: 133/59 Pulse: 55 Respirations: 18 Pulse Ox (%): 93 - Physical Exam General: Alert, In no apparent distress, Cooperative Assessment & Plan - Problems (Diagnosis) (1) Coronavirus infection Current Visit: Yes Status: Acute Plan: Patient is doing well there is no evidence for clinical ARDS although he did have interstitial changes discharged on Zithromax patient's fever has subsided prednisone not indicated
[2020-04-21 21:43] VITALS: BP 128/69; TEMP 97.7
== END 2020-04-14 13:29 | disposition home or self-care (01) | DRG 177 ==
LOC: ER 22:49 → ERHOLD 04-13 02:33 → 4TH 04-13 07:01
PROVIDERS: ADMIT Hospitalist; ATTEND Hospitalist
PROC: 8E0ZXY6 Isolation (ICD-10-PCS; principal; 2020-04-13)
DX: U07.1 COVID-19 (principal); J12.89 Other viral pneumonia; I10 Essential (primary) hypertension; K21.9 Gastro-esophageal reflux disease without esophagitis; E11.65 Type 2 diabetes mellitus with hyperglycemia; E78.5 Hyperlipidemia, unspecified; E11.40 Type 2 diabetes mellitus with diabetic neuropathy, unspecified; F43.10 Post-traumatic stress disorder, unspecified; Z88.8 Allergy status to other drugs, medicaments and biological substances; Z79.899 Other long term (current) drug therapy; Z79.4 Long term (current) use of insulin; Z87.891 Personal history of nicotine dependence
CPT/HCPCS: 36415; 71045; 80053; 80061; 82947; 83605; 83735; 83880; 84100; 84145; 85025; 85610; 85730; 87040; 94760; 96365; 96366; 99285; J0456; J0696; J1100; J1650; J1815; J1940; J7030

== ENCOUNTER 2020-05-04 20:15 | Emergency (ER) | payer OTHER ==
--- OUTSIDE RECORDS SUMMARY | 2020-05-04 20:18 | XMS REPORT | Clinical Summary ---
:1970 Author Organization [facility] Address [address] [place] [address] Care Team Providers Name Role Phone Theodora Yoon MD Primary Care Provider [phone] Allergies Active Allergy Reactions Severity Noted Date [...] complication, with long-term current use of insulin ([facility]) lancets 33 gauge Testing 3 X Day 300 each 6 05/27/2017 Active miscIndications: Uncontrolled type 2 diabetes mellitus with complication, with long-term current use of insulin ([facility]) blood sugar diagnostic Testing 4 X day 400 strip 6 06/03/2017 Active strips strip test stripsIndications: Uncontrolled type 2 diabetes mellitus without complication, with long-term current use of insulin ([facility]) lancets Testing 4 X Day 400 each 6 06/03/2017 Act sanjay miscIndications: Uncontrolled type 2 diabetes mellitus without complication, with long-term current use of insulin ([facility]) citalopram (CeleXA) 40 Take 1 tablet (40 [...] Encounters Date Type Specialty Care Team Description 05/01/2020 Travel 04/29/2020 Travel 04/14/2020 Travel 04/01/2020 Telephone Urology Sobia, Anand m in male Jaden Wheeler MD (Primary Dx) 03/25/2020 Travel 02/27/2020 Orders Only Endocrinology Mallorie Vu MA Uncont rolled type 2 diabetes mellit with insulin therapy (HCC) (Primary Dx) 02/15/2020 Orders Only Endocrinology Mallorie Vu MA Uncont rolled type 2 diabetes mellit us with insulin therapy (HCC) (Primary Dx) 11/06/2019 Telephone Endocrinology Mallorie Vu MA 09/09/2019 Refill Endocrinology Tete Coates MD Uncont rolled type 2 diabetes mellitus with complication, with long-term current use of insulin (HCC); Uncontrolled ty pe 2 diabetes mellitus without complication, with long-term current use of insulin (HCC) 09/09/2019 Refill Family Medicine Theodora Yoon MD after 05/04/2019 Family History Medical History Relation Name Comments Diabetes Father Zion Ojeda Hypertension Father Zion Ojeda Diabetes Mother Marianne Radha Heart disease [...] have you been in contact with Yes 05/01/2020 11:21 AM CDT someone who was confirmed or suspected to have Coronavirus / COVID-19? Last Filed Vital Signs Not on file Plan of Treatment Date Type Specialty Care Team Description 05/26/2020 Office Visit Urology Jaden Ramsay MD [address] [place], [place] [address] [phone] 05/27/2020 Telemedicine Endocrinology Tete Coates MD [address] [place], [place] [address] [phone] 07/28/2020 Office Visit Endocrinology Tete Coates MD [address] [place], [place] [address] [phone] 08/06/2020 Office Visit General Surgery Jason Raman MD [address] [place], [place] [address] [phone] Health Maintenance Due Date Last Done Comments [...] Re sults for this CREATININE URINE AM [employer]IC diabetes mellitus with p rocedure are in RATIO insulin therapy (HCC) the re sults section. LIPID PANEL Routine 09/10/2019 9:24 Mixed hyperlipidemia Res ults for this AM [employer] procedure are i n the results section. HEMOGLOBIN A1C Routine 09/10/2019 9:24 Uncontrolled type 2 Re sults for this AM [employer]CH[employer]IC diabetes mellitus with proce dure are in insulin therapy (HCC) the re sults section. COMPREHENSIVE Routine 09/10/2019 9:24 Uncontrolled type 2 Res ults for this METABOLIC PANEL AM [employer]IC diabetes mellitus with pr ocedure are in insulin therapy (HCC) the re sults section. after 05/04/2019 Results Microalbumin / creatinine urine ratio (09/10/2019 9:24 AM HOUSEH[employer] APPL[employer]ANCE MECH[employer]IC) Creatinine, urine, 211.8 Not Estab. [facility] random mg/dL Albumin, urine 1,504.1 Not Estab. [facility] Comment: ug/mL Results confirmed on dilution. Microalbumin/creati 710.2 (H) 0.0 - 30.0 [facility] nine ratio Comment: mg/g creat Normal: 0.0 - 30.0 Albuminuria: 31.0 - 300.0 Clinical albuminuria: >300.0 Specimen Urine Narrative Performed At Performed at: [facility] [address] [place], [place] [address] 144 Pet Caregiver: Kings Landin MD, Phone: [phone] Performing Organization Address City/State/Zipcode Phone Number [facility] Hemoglobin A1c (09/10/2019 9:24 AM HOUSEHOLD APPLIANCE MECH[employer]IC) Pathologist Sig nature Hemoglobin A1C 9.4 (H) 4.8 - 5.6 % [facility] Comment: Prediabetes: 5.7 - 6.4 Diabetes: >6.4 Glycemic control for adults with diabetes : <7.0 Specimen Blood Narrative Performed At Performed at: [facility] [address] [place], [place] [address] 723 Pet Caregiver: Kings Landin MD, Phone: [phone] Performing Organization Address [facility] Phone Number [facility] Lipid panel (09/10/2019 9:24 AM HOUSEHOLD APPLIANCE MECHANIC) Pathologist Sig nature Cholesterol 134 100 - 199 mg/dL [facility] Triglycerides 134 0 - 149 mg/dL [facility] HDL cholesterol 34 (L) >39 mg/dL [facility] VLDL cholesterol andrzej 27 5 - 40 mg/dL [facility] LDL cholesterol calculated 73 0 - 99 mg/dL [facility] Non-HDL cholesterol 100 0 - 129 mg/dL [facility] Specimen Blood Narrative Performed At Performed at: [address] [id number] 143 Pet Caregiver: Kings Landin MD, Phone: [phone] Performing Organization Address [facility] Phone Number [facility] Comprehensive metabolic panel (09/10/2019 9:24 AM HOUSEHOLD APPLIANCE MECHANIC) Pathologist Sig nature Glucose 200 (H) 65 - 99 mg/dL [facility] BUN 9 6 - 24 mg/dL [facility] Creatinine 0.97 0.76 - 1.27 mg/dL [facility] EGFR Non-Afr. Scottish 91 >59 mL/min/1.73 [facility] EGFR 106 >59 [...] Specimen Blood Narrative Performed At Performed at: [address] [facility] [address] [place], [place] [address] 143 Pet Caregiver: Kings Landin MD, Phone: [phone] Performing Organization Address City/State/Zipcode Phone Number [facility] after 05/04/2019 Advance Directives For more information, please contact: [phone] Type Date Recorded Patient Fish Dressing Machine Feeder Explanati on Advance Directives, Living Will and Medical Power of Power System Dispatcher
--- OUTSIDE RECORDS SUMMARY | 2020-05-04 20:19 | XMS REPORT | Continuity of Care Document ---
:1970 Author Organization [facility] t Address [address] [place] [address] Care Team Providers Name Role Phone Car TELLEZ, Theodora Nam Primary Care Physician [phone] Lab, Fam Pob I Attending Clinician Unavailable Madelyn KEBEDE, G Attending Clinician Unavailable Pob[facility], Care Clinic Attending Clinician Unavailable Sobia TELLEZ, N. Attending Clinician Mirella VALLADARES Attending Clinician Unavailable Aminata TELLEZ Attending Clinician Viv Yoon MD Attending Clinician Problems Condition Condition Condition Status Onset Resolution Last Treating Co mments Source Name Details Category Date Date Treatment Clinician Date Morbid Morbid Disease Active 2017-10 [place] obesity obesity 0-18 [facility] due to due to 00:00: st excess excess 00 calories calories Loose body Loose body Disease Active [place] right in right 02-14 [facility] elbow elbow 00:00: st 00 Arthritis Arthritis Disease Active [facility] of right of right 01-16 [facility] elbow elbow 00:00: st 00 Uncontroll Uncontroll Disease Active [place] ed type 2 ed type 2 05-18 Meth leandra diabetes diabetes 00:00: st mellitus mellitus 00 with with complicati complicati on, with on, with long-term long-term current current use of use of insulin insulin Mixed Mixed Disease Active [place] hyperlipid hyperlipid 7- Me thodi emia emia 00:00: st 00 Benign Benign Disease Active [place] essential essential 7-14 Meth laendra HTN HTN 00:00: st 00 Allergies, Adverse Reactions, Alerts Allergy Allergy Status Severity Reaction(s) Onset Inactive Treating Comm ents Source Name Type Date Date Clinician Pollen Propensi Active 2016-10 Pt [place] Extracts ty to 11-13 allergic [facility] adverse 00:00: to dust st reaction 00 s to drug Lisinopr Propensi Active Other (See Cough [place] ty to Comments) 03-31 [facility] adverse 00:00: st reaction 00 s to drug Family History Family Member Diagnosis Comments Start Date Stop Date Source Natural father Diabetes [facility] thodist Natural father Hypertension [place] [facility] Natural mother Diabetes [facility] Natural mother Heart disease [facility] Natural mother Hypertension [facility] Natural mother Stroke [facility]ist Social History Social Habit Start Date Stop Date Quantity Comments Source History [facility] Meth odist Alcohol Std Drinks History [facility] Meth odist Alcohol Binge Sex Assigned At [facility] ethodist Exposure to Yes [place] Metho dist SARS-CoV-2 (event) Alcohol intake 2019-04-10 2019-04-10 Current [facility] thodist 00:00:00 00:00:00 non-drinker of alcohol (finding) History [facility] 2018-11-08 2018-11-08 1 [place] Meth odist Alcohol Frequency 00:00:00 00:00:00 Smoking Status Start Date Stop Date Source Never smoker [facility] Method[facility] t Medications Ordered Filled Start Stop Current Ordering Indication Dosage Frequency Signature Comments Components Source Medication Medication Date Date Medication? Clinician (SIG) Name Name atorvastati Yes 40mg QD Take 40 mg [place] n (LIPITOR) 6-18 by mouth Meth leandra 40 MG 11:02: nightly. st tablet 49 insulin Yes 14U QD Inject 14 [place] GLARGINE 6-18 Units [facility] (LANTUS) 11:02: under the st 100 unit/mL 49 skin every injection morning. (vial) cyanocobala Yes QD Place [place] min, 6-18 under the [facility] vitamin 11:02: tongue st B-12, 49 daily. (VITAMIN B-12) 1,000 mcg tablet, sublingual calcium Yes QD Take by [facility] carbonate/v -18 mouth [facility] itamin D3 11:02: daily. st (CALCIUM 49 600 + D,3, ORAL) iron,carb/v 0 Yes QD Take by Anisabeatrice hawkins it C/vit 618 mouth [facility] B12/folic 11:02: daily. st (IRON 100 49 PLUS ORAL) UNABLE TO 2019-0 Yes QD daily. [facility] juanita FIND 04-10 Name: [facility] 11:02: Bariatric st 49 Advantage MVI [facility]-18 mouth. [facility] (LOSARTAN 11:02: st ORAL) 49 amlodipine Yes Take by [facility] ton besylate 18 mouth. [facility] (AMLODIPINE 11:02: st ORAL) 49 gabapentin Yes 100mg [id number] Take 1 [place] (NEURONTIN) 2-28 [id number] capsule [facility] 100 mg 00:00: 3D ([address] capsule 00 total) by mouth 3 (three) times a day. citalopram Yes 40mg QD Take 1 [facility] on (CeleXA) 40 9-17 tablet (40 Me thodi MG tablet 00:00: mg total) st 00 by mouth nightly. blood sugar Yes Uncontrolle Testing 4 [place] diagnostic 8-11 d type 2 X day Meth leandra strips 00:00: diabetes st strip test 00 mellitus strips without complicatio n, with long-term current use of insulin ([facility]) lancets 0 Yes [facility] 2 X Day [facility] 00:00: diabetes st 00 mellitus without complicatio n, with long-term current use of insulin ([facility]) lancets 33 0 Yes Uncontrolle Testing 3 [place] gauge misc 8-04 d type 2 X Day Meth leandra 00:00: diabetes st 00 mellitus with complicatio n, with long-term current use of insulin ([facility]) blood sugar 0 Yes Uncontrolle Testing 3 [place] diagnostic 7-26 d type 2 X Day Meth leandra strips 00:00: diabetes st strip test 00 mellitus strips with complicatio n, with long-term current use of insulin ([facility]) Procedures Procedure Date / Time Performed Performing Clinician [facility] e COMPREHENSIVE METABOLIC 2019-09-10 09:24:00 Aminata Tete [facility] PANEL HEMOGLOBIN A1C 2019-09-10 09:24:00 Tete Coates Met [facility] LIPID PANEL 2019-09-10 09:24:00 Tete Coates Met gume MICROALBUMIN / CREATININE 2019-09-10 09:24:00 Tete [place] URINE RATIO Plan of Care Planned Activity Planned Date Details Comments Source Future Scheduled 2020-09-27 DIABETIC RETINAL EYE [facility] Test 00:00:00 EXAM [code = DIABETIC RETINAL EYE EXAM] Future Scheduled 2020-09-10 URINE MICROALBUMIN [place] [facility] Test 00:00:00 [code = URINE MICROALBUMIN] Future Scheduled 2020-05-24 INFLUENZA VACCINE [place] [facility] Test 00:00:00 [code = INFLUENZA VACCINE] Future Scheduled 2020 COLONOSCOPY SCREENING [place] [facility] Test 00:00:00 [code = COLONOSCOPY SCREENING] Future Scheduled 2020 SHINGLES VACCINES (#1) [place] [facility] Test 00:00:00 [code = SHINGLES VACCINES (#1)] Future Scheduled 2020-03-12 DIABETIC FOOT EXAM [place] [facility] Test 00:00:00 [code = DIABETIC FOOT EXAM] Encounters Start End Encounter Admission Attending Care Care Encounter Source Date/Time Date/Time Type Type Clinicians Facility Department ID 2020-04-28 2020-04-28 Laboratory Lab, [facility] [place] [id number] 15:22:24 15:42:24 Only Fam Pob [facility] [id number] [place] [id number] Professio [id number] [address] 2020-04-13 2020-04-13 [facility] [id number] 00:00:00 00:00:00 Alondra mora [id number] [facility] [id number] 2020-04-11 2020-04-11 Urgent Pob1, [place] [id number] 15:51:25 16:47:07 [facility] [id number] [place] [id number] Yvette [id number] [place] [address] [address] Results This patient has no known results.
--- OUTSIDE RECORDS SUMMARY | 2020-05-04 20:19 | XMS REPORT | Summary of Care ---
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 documented as of this encounter (statuses as of 04/28/2020) Active Problems No known active problemsdocumented as of this encounter (statuses as of 04/28/2020) Social History Tobacco Use Types Packs/Day Years [...] have you been in contact with Yes 04/28/2020 3:24 PM CDT someone who was confirmed or suspected to have Coronavirus / COVID-19? documented as of this encounter Last Filed Vital Signs Not on filedocumented in this encounter Plan of Treatment Name Type Priority Associated Diagnoses Order S chedule COVID-19 (PCR MOLECULAR LAB Routine Suspected Covid-1 9 Virus Expected: 04/28/2020, TESTING) Infection Expires: 2020 Health Maintenance Due Date Last Done Comments DTaP,Tdap,and Td Vaccines 1981 (1 - Tdap) Depression Screening 1982 COLONOSCOPY 2020 Zoster Recombinant Vaccine 2020 (SHINGRIX) (1 of 2) INFLUENZA VACCINE (#1) 2020 12/13/2019, 07/26/2018, 08/02/2017, Additional history exists PNEUMOCOCCAL 0-64 YEARS Aged Out No longe r eligible COMBINED SERIES based on patient 's age to complete this topic documented as of this encounter Results Not on filedocumented in this encounter Visit Diagnoses Diagnosis Suspected Covid-19 Virus Infection - Linda aguila documented in this encounter Additional Health Concerns Infection Onset Date Last Indicated Resolved Time COVID-19 Confirmed 04/13/2020 04/13/2020 COVID-19 Rule Out 04/28/2020 04/28/2020 documented as of this encounter [phone] [id number] (Work) documented as of this encounter
--- OUTSIDE RECORDS SUMMARY | 2020-05-04 20:19 | XMS REPORT | Summary of Care ---
:1970 Author Organization [facility] Address [address] [place] [id number] Care Team Providers Name Role Phone Pcp, Patient Does Not Have A Primary Care Provider +1-000-00 0-0000 Reason for Visit Reason Comments Results Encounter Details Date Type Department Care Team Description 04/13/2020 Telephone ACCESS CENTER Alondra Joshi RN Results [address] [place] [phone] [place] [id number] Allergies Active Allergy Reactions Severity Noted Date Comments Lisinopril Cough 04/11/2020 documented as of this encounter (statuses as of 04/13/2020) Medications Medication Sig Dispensed Refills Start Date End Date Status benzonatate (TESSALON Take 1 capsule by 30 capsule 0 0 Active PERLES) 100 mg mouth 3 (three) capsuleIndications: times daily as Cough needed for Cough. documented as of this encounter (statuses as of 04/13/2020) Active Problems No known active problemsdocumented as of this encounter (statuses as of 04/13/2020) Social History Tobacco Use Types Packs/Day Years [...] filedocumented in this encounter Plan of Treatment Health Maintenance Due Date Last Done Comments DTaP,Tdap,and Td Vaccines 1981 (1 - Tdap) Depression Screening 1982 COLONOSCOPY 2020 Zoster Recombinant Vaccine 2020 (SHINGRIX) (1 of 2) INFLUENZA VACCINE Completed 12/13/2019, 07/26/2018, 08/02/2017, Additional history exists PNEUMOCOCCAL 0-64 YEARS Aged Out No longe r eligible COMBINED SERIES based on patient 's age to complete this topic documented as of this encounter Results Not on filedocumented in this encounter Additional Health Concerns Infection Onset Date Last Indicated Resolved Time COVID-19 Confirmed 04/13/2020 04/13/2020 documented as of this encounter Insurance Payer Benefit Plan / Group Subscriber ID Effective Dates Phone Address Type JARRETT BARNES [id number] 2020-Present Jose babcock documented as of this encounter
[2020-05-04 21:45] LABS: Absolute Lymphocytes (CBC) 2.2 K/uL (0.7-4.9); Basophils % 1.6 % (0-1.3); Hematocrit 44.6 % (39.6-49.0); Lymphocytes % 32.6 % (15.3-44.8); RBC Red Blood Cell Count 5.16 M/uL (4.33-5.43)
[2020-05-04 21:56] LABS: ALT/SGPT 34 U/L (12-78); AST/SGOT 13 U/L (15-37); Albumin 3.3 g/dL (3.4-5.0); Alkaline Phosphatase 124 U/L (45-117); BUN Blood Urea Nitrogen 16 mg/dL (7-18); Bicarbonate 25 mmol/L (21-32); Bilirubin Direct 0.1 mg/dL (0-0.2); Bilirubin Total 0.3 mg/dL (0.2-1.0); CKMB Creatine Kinase MB < 1.0 ng/mL (0.3-3.6); Creatine Phosphokinase 49 U/L (39-308); Glucose Level 356 mg/dL (74-106); Lipase 213 U/L (73-393); Magnesium 2.1 mg/dL (1.8-2.4); NT PRO-BNP 140 pg/mL (<125); Potassium 3.8 mmol/L (3.5-5.1); Protein, Total 7.4 g/dL (6.4-8.2); Sodium Level 137 mmol/L (136-145); Troponin (Emerg Dept Use Only) < 0.02 ng/mL (0.0-0.045)
--- NOTE | 2020-05-04 22:01 | RAD REPORT ---
EXAM DESCRIPTION: Beata Single View05/04/2020 9:51 pm CLINICAL HISTORY: Shortness of breath COMPARISON: March 2020 FINDINGS: Bilateral pulmonary opacities appear mostly resolved. Heart is normal size IMPRESSION: Significant improvement in bilateral pulmonary opacities
[2020-05-04] MEDS ORDERED: NA CHLORIDE 0.9% 1,000 ML ONE (22:28)
[2020-05-04] MEDS ORDERED: KETOROLAC 30 MG/ML INJ ONE (22:28)
--- NOTE | 2020-05-04 23:39 | EDPHYS ---
Physician Documentation [facility] Name: Osmany Ojeda Age: 50 yrs Sex: Male : 1970 Arrival Date: 05/04/2020 Time: 20:23 Bed 27 Private MD: ED Physician Tashi Dumont HPI: 05/05 05:22 This 50 yrs old Male presents to ER via Ambulatory with complaints of + For tw4 COVID-19, back painm, leg pain, headache, diarrhea. 05:22 The patient reports fever, not measured (subjective). Onset: The symptoms/episode tw4 began/occurred today. Modifying factors:. The patient has experienced a previous episode. The patient has been recently seen at the [facility] Emergency Department, last month, for similar complaints diagnosed with covid. Historical: - Allergies: 05/04 20:37 Lisinopril; ca1 - Home Meds: 20:37 losartan 50 mg oral tab 1 tab 2 times per day [Active]; amlodipine 10 mg oral tab 1 tab ca1 once daily [Active]; empagliflozin oral 25 mg oral .5 tab once daily [Active]; gabapentin 600 mg oral tab 1 tab twice a day [Active]; atorvastatin 10 mg oral tab 1 tab once daily [Active]; Novolog 100 unit/mL Sub-Q soln [Active]; Lantus 100 unit/mL Sub-Q soln [Active]; escitalopram oxalate oral oral [Active]; - PMHx: 20:37 acid reflux; Hypertension; PTSD; Sleep Apnea; Diabetes - IDDM; ca1 - PSHx: 20:37 Gastric Bypass; ca1 - Immunization history:: Adult Immunizations up to date. - Social history:: Smoking status: Patient denies any tobacco usage or history of. ROS: 05/05 05:22 Cardiovascular: Negative for chest pain, palpitations, and edema, MS/Extremity: tw4 Negative for injury and deformity, Skin: Negative for injury, rash, and discoloration, Neuro: Negative for headache, weakness, numbness, tingling, and seizure. Constitutional: Positive for body aches, chills, fever. Abdomen/GI: Positive for nausea, diarrhea. Back: Positive for pain at rest, pain with movement. : Positive for testicular pain Exam: 05:22 Constitutional: This is a well developed, well nourished patient who is awake, alert, tw4 and in no acute distress. Head/Face: Normocephalic, atraumatic. Chest/axilla: Normal chest wall appearance and motion. Nontender with no deformity. No lesions are appreciated. Cardiovascular: Regular rate and rhythm with a normal S1 and S2. No gallops, murmurs, or rubs. Normal PMI, no JVD. No pulse deficits. Respiratory: Lungs have equal breath sounds bilaterally, clear to auscultation and percussion. No rales, rhonchi or wheezes noted. No increased work of breathing, no retractions or nasal flaring. Abdomen/GI: Soft, non-tender, with normal bowel sounds. No distension or tympany. No guarding or rebound. No evidence of tenderness throughout. Back: No spinal tenderness. No costovertebral tenderness. Full range of motion. MS/ Extremity: Pulses equal, no cyanosis. Neurovascular intact. Full, normal range of motion. Psych: Awake, alert, with orientation to person, place and time. Behavior, mood, and affect are within normal limits. Vital Signs: 05/04 20:30 BP 176 / 90; Pulse 88; Resp 18 S; Temp 98(TE); Pulse Ox 99% on R/A; Weight 83.46 kg ca1 (R); Height 5 ft. 8 in. (172.72 cm) (R); 21:30 BP 169 / 89; Pulse 75; Resp 16; Pulse Ox 98% on R/A; Pain 5/10; jb4 22:30 BP 180 / 84; Pulse 68; Resp 16; Pulse Ox 100% on R/A; jb4 23:30 BP 165 / 87; Pulse 56; Resp 16; Pulse Ox 99% on R/A; jb4 05/05 00:15 BP 158 / 76; Pulse 59; Resp 16; Pulse Ox 100% on R/A; jb4 05/04 20:30 Body Mass Index 27.98 (83.46 kg, 172.72 cm) ca1 00:15 BGL 139 jb4 MDM: 05/04 20:41 Patient medically screened. tw4 05/05 05:22 Differential diagnosis: viral Infection, bacterial infection, URI, bronchitis. Data tw4 reviewed: vital signs, nurses notes. Data reviewed: lab test result(s), CBC, electrolytes, Flu: negative EKG, radiologic studies, plain films. Data interpreted: Pulse oximetry: Interpretation: normal. Test interpretation: by ED physician or midlevel provider: plain radiologic studies. Test interpretation: by ED physician or midlevel provider: ECG. Counseling: I had a detailed discussion with the patient and/or guardian regarding: the historical points, exam findings, and any diagnostic results supporting the discharge/admit diagnosis, lab results, radiology results. 05/04 20:40 Order name: Blood Culture Adult (2) [facility] 05/04 20:40 Order name: BMP; Complete Time: 22:06 [facility] 05/04 22:06 Interpretation: Normal except: GLUC 356; GFR 77. [facility] 05/04 20:40 Order name: CBC with Diff; Complete Time: 22:06 [facility] 05/04 22:06 Interpretation: Within normal limits. 05/04 20:40 Order name: Ckmb; Complete Time: 22:06 [facility] 05/04 22:07 Interpretation: Within normal limits: CKMB < 1.0. [facility] 05/04 20:40 Order name: CPK; Complete Time: 22:06 [facility] 05/04 22:07 Interpretation: Within normal limits: CPK 49. [facility] 05/04 20:40 Order name: Hepatic Function; Complete Time: 22:06 [facility] 05/04 22:06 Interpretation: Normal except: AST 13; ALK 124; ALB 3.3; GLOB 4.1; A/G 0.8. 05/04 20:40 Order name: XRAY CXR (1 view); Complete Time: 22:06 [facility] 05/04 22:07 Interpretation: No acute disease except. 05/04 20:40 Order name: Lipase; Complete Time: 22:06 [facility] 05/04 22:07 Interpretation: Within normal limits: LIP 213. 05/04 20:40 Order name: Magnesium; Complete Time: 22:06 [facility] 05/04 22:07 Interpretation: Within normal limits: MG 2.1. 05/04 20:40 Order name: NT PRO-BNP; Complete Time: 22:06 [facility] 05/04 22:06 Interpretation: Normal except: NT PRO-BNP 140. 05/04 20:40 Order name: Ptt, Activated; Complete Time: 22:06 [facility] 05/04 22:07 Interpretation: Normal except: PTT 39.9. 4 05/04 20:40 Order name: Troponin (emerg Dept Use Only); Complete Time: 22:06 4 05/04 22:08 Interpretation: Within normal limits: TROPED < 0.02. 05/05 00:06 Order name: Urine Dipstick--Ancillary (enter results) tt3 05/04 20:40 Order name: Cardiac monitoring; Complete Time: 21:05 05/04 20:40 Order name: EKG - Nurse/Tech; Complete Time: 21:42 05/04 20:40 Order name: IV Saline Lock; Complete Time: 21:42 05/04 20:40 Order name: Labs collected and sent; Complete Time: :42 05/04 20:40 Order name: O2 Per Protocol; Complete Time: 21:05 05/04 20:40 Order name: O2 Sat Monitoring; Complete Time: 21:05 05/04 21:54 Order name: Urine Dipstick-Ancillary (obtain specimen); Complete Time: 00:22 tw4 EC:22 Rate is 75 beats/min. Rhythm is regular. QRS [place] is Normal. IN interval is normal. QRS tw4 interval is normal. QT interval is normal. No Q waves. T waves are Normal. No ST changes noted. Clinical impression: NSR w/ Non-specific ST/T Changes. Interpreted by me. Reviewed by me. Administered Medications: 05/04 22:18 Drug: TORadol 30 mg Route: IVP; Site: right forearm; 4 22:45 Follow up: Response: No adverse reaction; Pain is decreased 4 22:20 Drug: NS 0.9% 1000 ml Route: IV; Rate: 1 bolus; Site: right forearm; jb4 23:15 Follow up: Response: No adverse reaction; IV Status: Completed infusion; IV Intake: jb4 1000ml 23:45 Drug: Insulin Regular Human 5 units {Co-Signature: sr3 (Carla Sepulveda RN).} Route: jb4 IVP; Site: right forearm; 05/05 00:35 Follow up: Response: No adverse reaction; Blood sugar is lowered; bgl 139 jb4 Disposition: 05/04/20 23:38 Discharged to Home. Impression: Coronavirus infection, unspecified, Low back pain, Hyperglycemia, unspecified. - Condition is Stable. - Discharge Instructions: Back Pain, Adult, Hyperglycemia, Viral Respiratory Infection. - Prescriptions for Ibuprofen 800 mg Oral Tablet - take 1 tablet by ORAL route every 8 hours As needed take with food; 30 tablet. - Medication Reconciliation Form, Thank You Letter, Antibiotic Education, Prescription Opioid Use form. - Follow up: Private Physician; When: Upon discharge from the Emergency Department; Reason: Recheck today's complaints, Continuance of care, Re-evaluation by your physician. - Problem is new. - Symptoms have improved. Signatures: Dispatcher [employer] EDMS Sukhdev Dean RN RN jb4 Tashi Dumont MD MD tw4 Vandana Hoskins RN RN ca1 Carla Sepulveda RN sr3 Corrections: (The following items were deleted from the chart) 00:44 05/04 23:38 05/04/2020 23:38 Discharged to Home. Impression: Coronavirus infection, jb4 unspecified; Low back pain; Hyperglycemia, unspecified. Condition is Stable. Forms are Medication Reconciliation Form, Thank You Letter, Antibiotic Education, Prescription Opioid Use. Follow up: Private Physician; When: Upon discharge from the Emergency Department; Reason: Recheck today's complaints, Continuance of care, Re-evaluation by your physician. Problem is new. Symptoms have improved. tw4
--- NOTE | 2020-05-04 23:39 | ER ---
Nurse's Notes [facility] Name: Osmany Ojeda Age: 50 yrs Sex: Male : 1970 Arrival Date: 05/04/2020 Time: 20:23 Bed 27 Private MD: Diagnosis: Coronavirus infection, unspecified;Low back pain;Hyperglycemia, unspecified Presentation: 05/04 20:30 Chief complaint: Patient states: Upper back pain, diarrhea, leg cramps x 3 days. ca1 Covid-19 positive, tested Tuesday, resulted Tuesday. Coronavirus screen: Surgical mask placed on patient. Patient moved to private room, placed in contact and droplet isolation with eye protection until further assessment. Patient reports a cough. Patient reports shortness of breath or difficulty breathing. Patient denies measured and/or subjective temperature greater than 100.4F prior to today's visit. Patient denies travel on a cruise ship or to a country the [facility] currently lists as an affected area. Patient denies contact with known and/or suspected case of COVID-19. Prior COVID test collected on: 04/28/2020 [facility] Surgical mask in place. Instructed on keeping mask at all times and keep 6 feet distance from other people in the lobby. Verbalized understanding. Ebola Screen: Patient negative for fever greater than or equal to 101.5 degrees Fahrenheit, and additional compatible Ebola Virus Disease symptoms Patient denies exposure to infectious person. Patient denies travel to an Ebola-affected area in the 21 days before illness onset. No symptoms or risks identified at this time. Initial Sepsis Screen: Does the patient meet any 2 criteria? No. Patient's initial sepsis screen is negative. Does the patient have a suspected source of infection? No. Patient's initial sepsis screen is negative. Risk Assessment: Do you want to hurt yourself or someone else? Patient reports no desire to harm self or others. Onset of symptoms was May 04, 2020. 20:30 Method Of Arrival: Ambulatory ca1 20:30 Acuity: JOSEPH 3 ca1 Historical: - Allergies: 20:37 Lisinopril; ca1 - Home Meds: 20:37 losartan 50 mg oral tab 1 tab 2 times per day [Active]; amlodipine 10 mg oral tab 1 tab ca1 once daily [Active]; empagliflozin oral 25 mg oral .5 tab once daily [Active]; gabapentin 600 mg oral tab 1 tab twice a day [Active]; atorvastatin 10 mg oral tab 1 tab once daily [Active]; Novolog 100 unit/mL Sub-Q soln [Active]; Lantus 100 unit/mL Sub-Q soln [Active]; escitalopram oxalate oral oral [Active]; - PMHx: 20:37 acid reflux; Hypertension; PTSD; Sleep Apnea; Diabetes - IDDM; ca1 - PSHx: 20:37 Gastric Bypass; ca1 - Immunization history:: Adult Immunizations up to date. - Social history:: Smoking status: Patient denies any tobacco usage or history of. Screenin:28 Abuse screen: Denies threats or abuse. Denies injuries from another. Nutritional ls4 screening: No deficits noted. Tuberculosis screening: No symptoms or risk factors identified. Fall Risk None identified. Assessment: 20:25 General: Appears in no apparent distress. uncomfortable, Behavior is calm, cooperative, jb4 appropriate for age. Pain: Complains of pain in back and right testicle, Headache, legs Pain does not radiate. Pain currently is 5 out of 10 on a pain scale. Neuro: Level of Consciousness is awake, alert, obeys commands, Oriented to person, place, time, situation. Cardiovascular: Capillary refill < 3 seconds. Respiratory: Reports shortness of breath When laying flat Airway is patent Respiratory effort is even, unlabored, Respiratory pattern is regular, symmetrical, Breath sounds are clear bilaterally. GI: No signs and/or symptoms were reported involving the gastrointestinal system. : No signs and/or symptoms were reported regarding the genitourinary system. EENT: No signs and/or symptoms were reported regarding the EENT system. Derm: Skin is intact, Skin is pink, warm \T\ dry. Musculoskeletal: Circulation, motion, and sensation intact. Range of motion: intact in all extremities. 21:30 Reassessment: Patient appears in no apparent distress at this time. Patient and/or jb4 family updated on plan of care and expected duration. Pain level reassessed. Patient is alert, oriented x 3, equal unlabored respirations, skin warm/dry/pink. 22:30 Reassessment: Patient appears in no apparent distress at this time. Patient and/or jb4 family updated on plan of care and expected duration. Pain level reassessed. Patient is alert, oriented x 3, equal unlabored respirations, skin warm/dry/pink. 23:30 Reassessment: Patient appears in no apparent distress at this time. Patient and/or jb4 family updated on plan of care and expected duration. Pain level reassessed. Patient is alert, oriented x 3, equal unlabored respirations, skin warm/dry/pink. 05/05 00:39 Reassessment: Patient appears in no apparent distress at this time. Patient and/or jb4 family updated on plan of care and expected duration. Pain level reassessed. Patient is alert, oriented x 3, equal unlabored respirations, skin warm/dry/pink. PT verbalized understanding of d/c and follow up instructions. Denies questions or concerns. Ambulated out Of ED with steady gait. Patient states feeling better. Vital Signs: 05/04 20:30 BP 176 / 90; Pulse 88; Resp 18 S; Temp 98(TE); Pulse Ox 99% on R/A; Weight 83.46 kg ca1 (R); Height 5 ft. 8 in. (172.72 cm) (R); 21:30 BP 169 / 89; Pulse 75; Resp 16; Pulse Ox 98% on R/A; Pain 5/10; jb4 22:30 BP 180 / 84; Pulse 68; Resp 16; Pulse Ox 100% on R/A; jb4 23:30 BP 165 / 87; Pulse 56; Resp 16; Pulse Ox 99% on R/A; jb4 05/05 00:15 BP 158 / 76; Pulse 59; Resp 16; Pulse Ox 100% on R/A; jb4 05/04 20:30 Body Mass Index 27.98 (83.46 kg, 172.72 cm) ca1 00:15 BGL 139 jb4 ED Course: 05/04 20:23 Patient arrived in ED. es 20:25 Inserted saline lock: 20 gauge in right forearm, using aseptic technique. Blood jb4 collected. 20:25 Initial lab(s) drawn, by me, sent to lab. First set of blood cultures drawn by me. jb4 20:30 Patient has correct armband on for positive identification. Placed in gown. Bed in low jb4 position. Call light in reach. Side rails up X 1. 20:34 Triage completed. ca1 20:37 Arm band placed on right wrist. ca1 20:40 Second set of blood cultures drawn by me. jb4 20:41 Tashi Dumont MD is Attending Physician. tw4 21:05 Sukhdev Dean, RN is Primary Nurse. jb4 21:51 XRAY CXR (1 view) In Process Unspecified. EDMS 05/05 00:39 No provider procedures requiring assistance completed. IV discontinued, intact, jb4 bleeding controlled, No redness/swelling at site. Pressure dressing applied. Administered Medications: 05/04 22:18 Drug: TORadol 30 mg Route: IVP; Site: right forearm; jb4 22:45 Follow up: Response: No adverse reaction; Pain is decreased jb4 22:20 Drug: NS 0.9% 1000 ml Route: IV; Rate: 1 bolus; Site: right forearm; jb4 23:15 Follow up: Response: No adverse reaction; IV Status: Completed infusion; IV Intake: jb4 1000ml 23:45 Drug: Insulin Regular Human 5 units {Co-Signature: sr3 (Carla Sepulveda RN).} Route: jb4 IVP; Site: right forearm; 05/05 00:35 Follow up: Response: No adverse reaction; Blood sugar is lowered; bgl 139 jb4 Intake: 05/04 23:15 IV: 1000ml; Total: 1000ml. jb4 Outcome: 23:38 Discharge ordered by . tw4 05/05 00:40 Discharged to home ambulatory. jb4 Condition: stable Discharge instructions given to patient, Instructed on discharge instructions, follow up and referral plans. medication usage, Demonstrated understanding of instructions, follow-up care, medications, Prescriptions given X 1. 00:44 Patient left the ED. jb4 Signatures: Dispatcher [employer] [facility] Jodi Tao James, RN RN jb4 Tashi Dumont MD MD tw4 Antonietta Bedoya RN RN ls4 Vandana Hoskins RN RN ca1 Carla Sepulveda RN sr3 Corrections: (The following items were deleted from the chart) 00:38 05/04 21:30 BP 169 / 89; Pulse 75bpm; Resp 16bpm; Pulse Ox 98% RA; jb4 jb4 05/05 00:42 05/04 21:30 General: Appears in no apparent distress. uncomfortable, Behavior is calm, jb4 cooperative, appropriate for age, jb4 05/05 00:05/04 21:30 Pain: Complains of pain in back and right testicle, Headache, legs Pain jb4 does not radiate. Pain currently is 5 out of 10 on a pain scale. 4 05/05 00:05/04 21:30 Neuro: Level of Consciousness is awake, alert, obeys commands, Oriented to jb4 person, place, time, situation, jb4 05/05 00:05/04 21:30 Cardiovascular: Capillary refill < 3 seconds jb4 jb4 05/05 00:05/04 21:30 Respiratory: Reports shortness of breath When laying flat Airway is patent jb4 Respiratory effort is even, unlabored, Respiratory pattern is regular, symmetrical, Breath sounds are clear bilaterally. 4 05/05 00:05/04 21:30 GI: No signs and/or symptoms were reported involving the gastrointestinal jb4 system. 4 05/05 00:05/04 21:30 : No signs and/or symptoms were reported regarding the genitourinary jb4 system. 4 05/05 00:05/04 21:30 EENT: No signs and/or symptoms were reported regarding the EENT system. jb4 4 05/05 00:05/04 21:30 Derm: Skin is intact, Skin is pink, warm \T\ dry. jb4 4 05/05 00:05/04 21:30 Musculoskeletal: Circulation, motion, and sensation intact. Range of jb4 motion: intact in all extremities, jb4
[2020-05-04] MEDS ORDERED: INSULIN -REGULAR HUMAN 50 UNIT/0.5 ML ML ONE (23:50)
[2020-05-05 00:49] VITALS: TEMP 98
[2020-05-05 00:55] VITALS: BP 158/76; O2SAT 100
[2020-05-05 02:00] LABS: Urine Blood NEGATIVE (NEG); Urine Glucose 2+ (NEG); Urine Protein TRACE (NEG); Urine Specific Gravity 1.015 (1.005-1.030); Urine pH 5.5 (5.0-7.0)
== END 2020-05-05 00:44 | disposition home or self-care (01) ==
LOC: ER 20:15
DX: U07.1 COVID-19 (principal); M54.5 Low back pain; E11.65 Type 2 diabetes mellitus with hyperglycemia; Z79.4 Long term (current) use of insulin; I10 Essential (primary) hypertension
CPT/HCPCS: 96361; 87040 ×2; 85025; 80048; 36415; 83735; 82550; 82947; 80076; 85730; 81003; 84484; 82553; 83690; 83880; 71045; 96375; 96374; 99284; J7030

== ENCOUNTER 2020-11-27 16:10 | Emergency (ER) | payer OTHER ==
--- OUTSIDE RECORDS SUMMARY | 2020-11-27 16:12 | XMS REPORT | Clinical Summary ---
:1970 Author Organization [facility] Address [address] [place] [address] Care Team Providers Name Role Phone Theodora Yoon MD Primary Care Provider [phone] Allergies Active Allergy Reactions Severity Noted Date Comments Lisinopril Other (See Comments) 03/31/2017 Cough Pollen Extracts 09/13/2017 Pt allergic to dust Medications Medication Sig Dispensed Refills Start Date End Date Status atorvastatin Take 40 mg by 0 Act sanjay (LIPITOR) 40 MG mouth nightly. tablet blood sugar Testing 3 X 400 strip 6 05/18/2017 Activ e diagnostic strips Day strip test stripsIndications : Uncontrolled type 2 diabetes mellitus with complication, with long-term current use of insulin ([facility]) lancets 33 gauge Testing 3 X 300 each 6 05/27/2017 Active miscIndications: Day Uncontrolled type 2 diabetes mellitus with complication, with long-term current use of insulin (HCC) blood sugar Testing 4 X 400 strip 6 06/03/2017 Activ e diagnostic strips day strip test stripsIndications : Uncontrolled type 2 diabetes mellitus without complication, with long-term current use of insulin lancets Testing 4 X 400 each 6 06/03/2017 Active miscIndications: Day Uncontrolled type 2 diabetes mellitus without complication, with long-term current use of insulin citalopram Take 1 tablet 90 tablet 0 07/10/2018 Acti ve (CeleXA) 40 MG (40 mg total) tablet by mouth nightly. cyanocobalamin, Place under 0 Ac tive vitamin B-12, the tongue (VITAMIN B-12) daily. 1,000 mcg tablet, sublingual calcium Take by mouth 0 Active carbonate/vitamin daily. D3 (CALCIUM 600 + D,3, ORAL) iron,carb/vit Take by mouth 0 Ac tive C/vit B12/folic daily. (IRON 100 PLUS ORAL) UNABLE TO FIND daily. Med 0 Acti ve Name: Bariatric Advantage MVI losartan Take by mouth. 0 Activ e potassium (LOSARTAN ORAL) amlodipine Take by mouth. 0 Acti ve besylate (AMLODIPINE ORAL) gabapentin Take 1 capsule 0 12/21/2018 Act sanjay (NEURONTIN) 100 (100 mg total) mg capsule by mouth 3 (three) times a day. insulin GLARGINE Inject 20 10 mL 3 05/27/2020 Ac tive (LANTUS) 100 Units under unit/mL injection the skin (vial) daily. flash glucose 1 kit continuously. Freestyle ramy [place] 1 each 4 05/28/2020 Active scanning reader Use as directed (FreeStyle Ramy 14 Day [place]um) [facility] glucose 1 kit every 14 (fourteen) days. Freestyle Ramy Senso rs 6 kit 3 05/28/2020 Active sensor (FreeStyle Use as directed Ramy 14 Day Sensor) kit insulin GLARGINE Inject 14 0 Dis continued (LANTUS) 100 Units under 0 (Reor rubi) unit/mL injection the skin every (vial) morning. sulfamethoxazole- Take 1 tablet 14 tablet 0 06/23/2020 02 trimethoprim by mouth 2 0 (BACTRIM DS) (two) times a 800-160 mg per day for 7 tablet days. Active Problems Problem Noted Date Morbid obesity due to excess calories 08/10/2018 Loose body in right elbow 02/14/2018 Arthritis of right elbow 01/16/2018 Uncontrolled type 2 diabetes mellitus with complicatio n, with long-term 05/18/2017 current use of insulin Mixed hyperlipidemia 05/18/2017 Benign essential HTN 05/06/2017 Encounters Date Type Specialty Care Team Description 07/29/2020 Telephone General Surgery Juliet Gregory 06/23/2020 Office Visit Urology Bridgette Ramsay ( Primary Dx) Jaden Wheeler MD 06/23/2020 Travel 06/11/2020 Office Visit Urology Bridgette Ramsay ( Primary Dx) Jaden Wheeler MD 06/11/2020 Travel 06/09/2020 Telemedicine Urology [place], Irish ar terial Jaden Wheeler MD insufficiency and corporo-venous occlusive erectile dysfun ction (Primary Dx) 06/09/2020 Orders Only Urology Zenaida Ramirez MA PARVEEN (stres s urinary incontinence), male (Primary Dx) 05/28/2020 Orders Only Endocrinology Suha Portillo Uncontro llho type 2 diabetes mellitus with insulin therapy (HCC) (Primary Dx); JACQUELYN Mixed hyperlipi demia; Benign essentia l HTN 05/28/2020 Refill Endocrinology Suha Portillo MA 05/27/2020 Telemedicine Endocrinology Tete Coates MD Uncont rolled type 2 diabetes mellitus with insulin therapy (HCC) (Primary Dx); Mixed hyperlipi demia; Benign essentia l HTN; History of Reji -en-Y gastric bypass 05/27/2020 Travel 05/26/2020 Telemedicine Urology [place], Combined ar aretha Wheeler MD insufficiency and corporo-venous occlusive erectile dysfun ction (Primary Dx) 05/26/2020 Telephone Urology Megan Garcia MA 05/16/2020 Telephone Urology Jaden Ramsay MD 05/06/2020 Orders Only Urology Zenaida Ramirez MA Male hypog onadism (Primary Dx) 05/01/2020 Travel 04/29/2020 Travel 04/14/2020 Travel 04/01/2020 Telephone Urology [place] Hypogonadis m in male Jaden Wheeler MD (Primary Dx) 03/25/2020 Travel 02/27/2020 Orders Only Endocrinology Mallorie Vu MA Uncont rolled type 2 diabetes mellit us with insulin therapy (HCC) (Primary Dx) 02/15/2020 Orders Only Endocrinology Mallorie Vu MA Uncont rolled type 2 diabetes mellit us with insulin therapy (HCC) (Primary Dx) after 11/27/2019 Surgical History Surgery Date Site/Laterality Comments OTHER SURGICAL HISTORY No previu os surgeries GASTROENTEROSTOMY, REJI-EN-Y, 08/10/2018 Abdomen/N/A Pr ocedure: LAPAROSCOPIC REJI LAPAROSCOPIC, WITH EN Y GASTRIC BYPASS WITH INTRAOPERATIVE ENDOSCOPY INTRAOP ERATIVE ENDOSCOPY; Surgeon: Jason rice MD; Location: [facility]; Service: General ; Laterality: N/A; REPAIR, HIATAL HERNIA, 08/10/2018 Abdomen/N/A Procedure : LAPAROSCOPIC LAPAROSCOPIC HIATAL HERNIA RE PAIR; Surgeon: Jason rice MD; Location: [facility]; Service: General ; Laterality: N/A; Medical History Medical History Date Comments Anesthesia NFHAP no cp/no sob CPAP (continuous positive airway pressure) dependence Arthritis of right elbow 01/16/2018 GERD (gastroesophageal reflux disease) 2005 T ac Omeprazole Hypertension 2005 Echo-EF 55%, mild LV H (08/09), Nuclear stress (-) ( 08/09) Diabetes type [address] Coates; eye exam (10/10) Sleep apnea Informed to bring CP AP mask Obesity H/O seasonal allergies Hiatal hernia Hypercholesteremia Does not exercise active at home: [employer] yard and home. Able to c limb 2 flights stairs witho ut stopping due to cp or sob Snoring Anxiety doing well on medica tion Depression doing well on medica tion History of posttraumatic stress disorder doing well with medication (PTSD) Family History Medical History Relation Name Comments [...] file Not on file Not on file Last Filed Vital Signs Vital Sign Reading Time Taken Comments Blood Pressure 141/74 06/23/2020 2:22 PM CDT Pulse 60 06/23/2020 2:22 PM CDT Temperature - - Respiratory Rate - - Oxygen Saturation - - Inhaled Oxygen Concentration - - Weight 95.3 kg (210 lb) 06/11/2020 10:38 AM CDT Height 172.7 cm (5' 8") 06/11/2020 10:38 AM CDT Body Mass Index 31.93 06/11/2020 10:38 AM CDT Plan of Treatment Date Type Specialty Care Team Description 12/01/2020 Telemedicine Endocrinology Tete Coates MD [address] [place], [place] [address] [phone] Health Maintenance Due Date Last Done Comments COVID-19 VACCINE (1 of 2) 1986 HEPATITIS C SCREENING 1988 DIABETIC FOOT EXAM 03/12/2020 03/12/2019, 03/12/2019, 03/12, Additional history exists COLONOSCOPY SCREENING 2020 SHINGLES VACCINES (#1) 2020 INFLUENZA VACCINE 05/24/2020 07/05/2018 URINE MICROALBUMIN 09/10/2020 09/10/2019, 05/05/2017 DIABETES: RETINAL EYE EXAM 09/27/2020 09/27/2018, 8, 09/27/2018, Additional history exists Procedures Procedure Name Priority Date/Time Associated Diagnosis Comme nts CBC WITH PLATELET AND Routine 05/14/2020 10:50 Male hypogonadi sm Results for this DIFFERENTIAL AM CDT procedure are i n the results section. TESTOSTERONE LEVEL, Routine 05/14/2020 10:50 Male hypogonadism Results for this FREE AND TOTAL, MALE AM CDT procedu re are in the results section. COMPREHENSIVE Routine 05/14/2020 10:47 Uncontrolled type 2 Res ults for this METABOLIC PANEL AM CDT diabetes mellitus procedu re are in with insulin therapy the res ults (HCC) section. HEMOGLOBIN A1C Routine 05/14/2020 10:47 Uncontrolled type 2 Re sults for this AM CDT diabetes mellitus procedure are in with insulin therapy the res ults (HCC) section. after 11/27/2019 Results CBC with platelet and differential (05/14/2020 10:50 AM CDT) Pathologist Sig nature WBC 7.9 3.4 - 10.8 x10E3/uL [facility] RBC 5.31 4.14 - 5.80 x10E6/uL [facility] HGB 16.2 13.0 - 17.7 g/dL [facility] HCT 46.1 37.5 - 51.0 % [facility] MCV 87 79 - 97 fL [facility] MCH 30.5 26.6 - 33.0 pg [facility] MCHC 35.1 31.5 - 35.7 g/dL [facility] RDW 13.0 11.6 - 15.4 % [facility] Platelet count 331 150 - 450 x10E3/uL [facility] Neutrophils 49 Not Estab. % [facility] Lymphocytes 36 Not Estab. % [facility] Monocytes 10 Not Estab. % [facility] Eosinophils 3 Not Estab. % [facility] Basophils 1 Not Estab. % [facility] Neutrophils, absolute 4.0 1.4 - 7.0 x10E3/uL [facility] Lymphocytes, absolute 2.8 0.7 - 3.1 x10E3/uL [facility] Monocytes, absolute 0.8 0.1 - 0.9 x10E3/uL [facility] Eosinophils, absolute 0.3 0.0 - 0.4 x10E3/uL [facility] Basophils, absolute 0.1 0.0 - 0.2 x10E3/uL [facility] Immature granulocytes 1 Not Estab. % [facility] Immature grans (abs) 0.1 0.0 - 0.1 x10E3/uL [facility] Specimen Blood Narrative Performed At [facility]formed at: [facility] [id number] Day Treatment Clinician/Art Therapist: Kings Landin MD, Phone: [phone] Performing Organization Address City/State/ZIP Code Phon e Number [facility] Testosterone level, free and total, male (05/14/2020 10:50 AM CDT) Testosterone [phone] 916 [facility] Comment: ng/dL Adult male reference interval is based on a population of healthy nonobese males (BMI <30) between 19 and 39 yea rs old. Maury et.al. JCEM 2017,102;7966-9409. PMID: 723713 03. Testosterone, free 19.4 7.2 - 24.0 [facility] 02 pg/mL Specimen Blood Narrative Performed At Performed at: - [facility] [place], [place] [address] 159 Day Treatment Clinician/Art Therapist: Kings Landin MD, Phone: [phone] Performed at: 02 - [facility] [address] [place], [place] [address] 361 Day Treatment Clinician/Art Therapist: Jayme Maki MD, Phone: [phone] Performing Organization Address City/[facility] Code Phon e Number [facility] 02 Hemoglobin A1c (05/14/2020 10:47 AM CDT) Pathologist Sig nature Hemoglobin A1C 10.2 (H) 4.8 - 5.6 % [facility] Comment: Prediabetes: 5.7 - 6.4 Diabetes: >6.4 Glycemic control for adults with diabetes : <7.0 Specimen Blood Narrative Performed At Performed at: - [facility] [place], [place] [address] 039 Day Treatment Clinician/Art Therapist: Kings Landin MD, Phone: [phone] Performing Organization Address [facility] Phon e Number [facility] Comprehensive metabolic panel (05/14/2020 10:47 AM CDT) Pathologist Sig nature Glucose 174 (H) 65 - 99 mg/dL [facility] BUN 16 6 - 24 mg/dL [facility] Creatinine 1.00 0.76 - 1.27 mg/dL [facility] EGFR Non-Afr. Finnish 87 >59 mL/min/1.73 [facility] EGFR 101 >59 mL/min/1.73 [facility] BUN/creatinine ratio 16 9 - 20 [facility] Sodium 138 134 - 144 mmol/L [facility] Potassium 4.0 3.5 - 5.2 mmol/L [facility] Chloride 96 96 - 106 mmol/L [facility] CO2 26 20 - 29 mmol/L [facility] Calcium 9.6 8.7 - 10.2 mg/dL [facility] Protein 7.0 6.0 - 8.5 g/dL [facility] Albumin, S 4.2 4.0 - 5.0 g/dL [facility] Globulin, total 2.8 1.5 - 4.5 g/dL [facility] Albumin/globulin ratio 1.5 1.2 - 2.2 [facility] Total bilirubin 0.6 0.0 - 1.2 mg/dL [facility] Alkaline phosphatase 108 39 - 117 IU/L [facility] AST 16 0 - 40 IU/L [facility] ALT 22 0 - 44 IU/L [facility] Specimen Blood Narrative Performed At Performed at: - [facility] [place] [facility] [address] [place], [place] [address] 143 Day Treatment Clinician/Art Therapist: Kings Landin MD, Phone: [phone] Performing Organization Address City/State/ZIP Code Phon e Number [facility] after 11/27/2019 Advance Directives For more information, please contact: [phone] Type Date Recorded 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
--- OUTSIDE RECORDS SUMMARY | 2020-11-27 16:13 | XMS REPORT | Continuity of Care Document ---
:1970 Author Organization [facility] t Address [address] [place] [address] Care Team Providers Name Role Phone Car TELLEZ, Theodora Nam Primary Care Physician [phone] Bri Attending Clinician Unavailable Sobia TELLEZ, N. Attending Clinician James VALLADARES Attending Clinician Unavailable Bandar VALLADARES Attending Clinician Unavailable Aminata TELLEZ Attending Clinician Jose VALLADARES Attending Clinician Unavailable Lab, Fam Pob I Attending Clinician Unavailable Madelyn KEBEDE, G Attending Clinician Unavailable Pob1, Care Clinic Attending Clinician Unavailable Mirella VALLADARES Attending Clinician Unavailable Payers Payer Name Policy Type Policy Effective Date Expiration Date [facility] Number [facility] [id number] 2020 [facility] 00:00:00 Yazidi [id number] /18/2020-PresentMili tary Problems Condition Condition Condition Status Onset Resolution Last Treating Co mments Source Name Details Category Date Date Treatment Clinician Date Morbid Morbid Disease Active 2017-10 [facility] obesity obesity 0-18 Methodi due to due to 00:00: st excess excess 00 calories calories Loose body Loose body Disease Active [place] in right in right 4-24 Method i elbow elbow 00:00: st 00 Arthritis Arthritis Disease Active Anisa ston of right of right 3- Method i elbow elbow 00:00: st 00 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 type 2 ed type 2 05-18 Meth leandra diabetes diabetes 00:00: st mellitus mellitus 00 with with complicati complicati on, with on, with long-term long-term current current use of use of insulin insulin Mixed Mixed Disease Active [facility] hyperlipid hyperlipid 05-18 Me thodi emia emia 00:00: st 00 Benign Benign Disease Active [facility] essential essential 05-06 Meth leandra HTN HTN 00:00: st 00 Allergies, Adverse Reactions, Alerts Allergy Allergy Status Severity Reaction(s) Onset Inactive Treating Comm ents Source Name Type Date Date Clinician Pollen Propensi Active 2016-10 Pt [facility] Extracts ty to 11-13 allergic Method i adverse 00:00: to dust st reaction 00 s to drug Lisinopr Propensi Active Other (See Cough [place] ty to Comments) 03-31 Methodi adverse 00:00: st reaction 00 s to drug Family History Family Member Diagnosis Comments Start Date Stop Date Source Natural father Diabetes [facility] Me thodist Natural father Hypertension Mcewen Yazidi Natural mother Diabetes [facility] thodist Natural mother Heart disease M[facility] Yazidi Natural mother Hypertension M[facility] Yazidi Natural mother Stroke [facility] thodist Social History Social Habit Start Date Stop Date Quantity Comments Source History [facility] Meth odist Alcohol Std Drinks History [facility] Meth odist Alcohol Binge Sex Assigned At [facility] ethodist Tobacco use and 2020-06-23 2020-06-23 Never used [facility] ethodist exposure 00:00:00 00:00:00 Alcohol intake 2020-06-23 2020-06-23 Current [facility] thodist 00:00:00 00:00:00 non-drinker of alcohol (finding) History SDOH 2018-11-08 2018-11-08 1 [facility] Meth odist Alcohol Frequency 00:00:00 00:00:00 Smoking Status Start Date Stop Date Source Never smoker [facility] Methodis t Medications Ordered Filled Start Stop Current Ordering Indication Dosage Frequency Signature Comments Components Source Medication Medication Date Date Medication? Clinician (SIG) Name Name atorvastati Yes 40mg QD Take 40 mg [facility] n (LIPITOR) 06-23 by mouth Meth leandra 40 MG 14:21: nightly. st tablet [address] [place] min, 06-23 under the Methodi vitamin 14:21: tongue st B-12, 27 daily. (VITAMIN B-12) 1,000 mcg tablet, sublingual calcium 2020-0 Yes QD Take by [place] carbonate/v 06-23 mouth Methodi itamin D3 14:21: daily. st (CALCIUM 27 600 + D,3, ORAL) iron,carb/v 2020-0 Yes QD Take by Anisa ro C/vit 06-23 mouth Methodi B12/folic 14:21: daily. st (IRON 100 27 PLUS ORAL) UNABLE TO 2020-0 Yes QD daily. Med ton FIND 06-23 Name: Methodi 14:21: Bariatric st 27 Advantage MVI losartan 2020-0 [facility]23 mouth. Methodi (LOSARTAN 14:21: st ORAL) amlodipine 2020-0 Yes Take by [facility] ton besylate 06-23 mouth. Methodi (AMLODIPINE 14:21: st ORAL) 27 sulfamethox 2020-0 2020- No 1{tbl} Q.5D Take 1 [place] azole-trime 06-2307 tablet by Ok thodi thoprim 00:00: 23:[address] (BACTRIM 00 :00 (two) DS) 800-160 times a mg per day for 7 tablet days. flash 2020-0 Yes 1{kit} 1 kit [facility] glucose 8-05 continuous Method i scanning 00:00: ly. st reader 00 Freestyle (FreeStyle ramy Ramy 14 [place] Use Day [place]) as misc directed flash 2020-0 Yes 1{kit} Q14D 1 kit [facility] glucose 8-05 every 14 Methodi sensor 00:00: (fourteen) st (FreeStyle 00 days. Ramy 14 Freestyle Day Sensor) Ramy kit Sensors Use as directed insulin 2020-0 2020- No 14U QD Inject 14 [place] GLARGINE 8-04 08-04 Units Methodi (LANTUS) 10:09: 00:[address] 100 unit/mL 23 :00 skin every injection morning. (vial) insulin 2020-0 Yes 20U QD Inject 20 [place] GLARGINE 8-04 Units Methodi (LANTUS) 00:00: under the st 100 unit/mL 00 skin injection daily. (vial) gabapentin 2019-0 Yes 100mg Q.[id number] Take 1 [facility] (NEURONTIN) 2-28 [id number] capsule Methodi 100 mg 00:00: 3D ([address] capsule 00 total) by mouth 3 (three) times a day. citalopram Yes 40mg QD Take 1 [place] (CeleXA) 40 9-17 tablet (40 Me thodi MG tablet 00:00: mg total) st 00 by mouth nightly. blood sugar Yes Uncontrolle Testing 4 [facility] diagnostic 8-11 d type 2 X day Meth leandra strips 00:00: diabetes st strip test 00 mellitus strips without complicatio n, with long-term current use of insulin lancets Yes Uncontrolle Testing 4 [facility] misc 8-11 d type 2 X Day Methodi 00:00: diabetes st 00 mellitus without complicatio n, with long-term current use of insulin lancets 33 Yes Uncontrolle Testing 3 [facility] gauge misc 8-04 d type 2 X Day Meth leandra 00:00: diabetes st 00 mellitus with complicatio n, with long-term current use of insulin ([facility]) blood sugar Yes Uncontrolle Testing 3 [facility] diagnostic 7-26 d type 2 X Day Meth leandra strips 00:00: diabetes st strip test 00 mellitus strips with complicatio n, with long-term current use of insulin ([facility]) Vital Signs Vital Name Observation Time Observation Value Comments Source Systolic blood 2020-06-23 14:22:00 141 mm[Hg] Prateek n Yazidi pressure Diastolic blood 2020-06-23 14:22:00 74 mm[Hg] [place] Yazidi pressure Heart rate 2020-06-23 14:22:00 60 /min Sebastián Moon Body height 2020-06-11 10:38:00 172.7 cm Sebastián Moon Body weight 2020-06-11 10:38:00 95.255 kg Sebastián Moon BMI 2020-06-11 10:38:00 31.93 kg/m2 Sebastián Moon Procedures Procedure Date / Time Performed Performing Clinician [facility] e TESTOSTERONE LEVEL, FREE 2020-05-14 10:50:00 Sky Ramsayist AND TOTAL, MALE Jaden N. CBC WITH PLATELET AND 2020-05-14 10:50:00 Paul Ramsay DIFFERENTIAL Jaden N. HEMOGLOBIN A1C 2020-05-14 10:47:00 Rosario Coates COMPREHENSIVE METABOLIC 2020-05-14 10:47:00 Rosario Coates Yazidi PANEL Plan of Care Planned Activity Planned Date Details Comments Source Future Scheduled 2020-09-27 DIABETES: RETINAL EYE [place] Y[facility]idi Test 00:00:00 EXAM [code = DIABETES: RETINAL EYE EXAM] Future Scheduled 2020-09-10 URINE MICROALBUMIN [place] Y[facility]idi Test 00:00:00 [code = URINE MICROALBUMIN] Future Scheduled 2020-05-24 INFLUENZA VACCINE [place] [facility] Test 00:00:00 [code = INFLUENZA VACCINE] Future Scheduled 2020 COLONOSCOPY SCREENING [place] [facility] Test 00:00:00 [code = COLONOSCOPY SCREENING] Future Scheduled 2020 SHINGLES VACCINES (#1) [place] [facility] Test 00:00:00 [code = SHINGLES VACCINES (#1)] Future Scheduled 2020-03-12 DIABETIC FOOT EXAM [place] Y[facility]idi Test 00:00:00 [code = DIABETIC FOOT EXAM] Future Scheduled 1988 Hepatitis C screening [place] Y[facility]idi Test 00:00:00 (procedure) [code = 084149708] Future Scheduled 1986 COVID-19 VACCINE (1 of [place] Y[facility]idi Test 00:00:00 2) [code = COVID-19 VACCINE (1 of 2)] Encounters Start End Encounter Admission Attending Care Care Encounter Source Date/Time Date/Time Type Type Clinicians Facility Department ID 2020-06-23 2020-06-23 Outpatient [facility] [id number] [facility] 00:00:00 00:00:00 OVAL, [address] 2020-06-11 2020-06-11 Outpatient [facility] [id number] [facility] 00:00:00 00:00:00 OVAL, [address] 2020-06-09 2020-06-09 Outpatient [facility] [id number] [facility] 00:00:00 00:00:00 OVAL, [address] 2020-05-27 2020-05-27 Outpatient AMINATA [facility] [id number] [address] [place] [address] 00:00:00 00:00:00 ROSARIO [address] 2020-04-28 2020-04-28 Laboratory Lab, Adc [facility] [id number] 15:22:24 15:42:24 Only Fam Pob I Health [id number] [place] [id number] Professio [phone] nal [address] 2020-04-13 2020-04-13 Telephone Sudhir CAMPOS [id number] 00:00:00 00:00:00 abby Alondra DURAN [id number] [id number] 2020-04-11 2020-04-11 Urgent Pob1, Acute [facility] [id number] 15:51:25 16:47:07 Care [facility] [id number] [place] [id number] Professio [phone] nal [address] Results Test Description Test Time Test Comments Results Result Comments Source Testosterone level, free and total, male 2020-05-18 10:08:00 Test Item Value Reference Range Interpretation Comme nts Testosterone (test code 654 ng/dL 264-916 Adul t male reference interval = 2986-8) is based on a p opulation ofhealthy nonob noa males (BMI <30) between 19 and 39 years old.francisco Mendiola t.al. JCEM 2017,102;1161-1 173. PMID: 92664227. Testosterone, free (test 19.4 pg/mL 7.2-24 code = 2991-8) CARLYN (test code = CARLYN) Performed at: 01 - [facility] [id number] Director: Kings Landin MD, Phone: [phone] at: 02 - [facility] [id number] Director: Jayme Maki MD, Phone: [phone] [facility] [id number] 13:09:00 Test Item Value Reference Range Interpretation Comments Hemoglobin A1C (test 10.2 % 4.8-5.6 H code = 4548-4) Prediabetes: 5.7 - 6.4 Diabetes: >6.4 Glycemic control for adults with diabetes: <7.0 CARLYN (test code = CARLYN) Performed at: [facility] [id number] Director: Kings Landin MD, Phone: [phone] Lab Interpretation Abnormal (test code = 52815-4) [facility] with platelet and [id number] 09:12:00 Test Item Value Reference Range Interpretation Comments WBC (test code = 7.9 3.4- 10.8 x10E3/uL 6690-2) RBC (test code = 5.31 4.14- 5.80 x10E6/uL 789-8) HGB (test code = 16.2 g/dL 13-17.7 718-7) HCT (test code = 46.1 % 37.5-51 4544-3) MCV (test code = 87 fL 79-97 787-2) MCH (test code = 30.5 pg 26.6-33 785-6) MCHC (test code = 35.1 g/dL 31.5-35.7 786-4) RDW (test code = 13.0 % 11.6-15.4 788-0) Platelet count (test 331 150- 450 x10E3/uL code = 777-3) Neutrophils (test code 49 % Not Estab. = 770-8) Lymphocytes (test code 36 % Not Estab. = 736-9) Monocytes (test code = 10 % Not Estab. 5905-5) Eosinophils (test code 3 % Not Estab. = 713-8) Basophils (test code = 1 % Not Estab. 706-2) Neutrophils, absolute 4.0 1.4- 7.0 x10E3/uL (test code = 751-8) Lymphocytes, absolute 2.8 0.7- 3.1 x10E3/uL (test code = 731-0) Monocytes, absolute 0.8 0.1- 0.9 x10E3/uL (test code = 742-7) Eosinophils, absolute 0.3 0.0- 0.4 x10E3/uL (test code = 711-2) Basophils, absolute 0.1 0.0- 0.2 x10E3/uL (test code = 704-7) Immature granulocytes 1 % Not Estab. (test code = 25923-2) Immature grans (abs) 0.1 0.0- 0.1 x10E3/uL (test code = 78239-6) CARLYN (test code = CARLYN) Performed at: 01 - [facility] [place], [place] [id number] Director: Kings Landin MD, Phone: [phone] [facility] [id number] 05:07:00 Test Item Value Reference Range Interpretation Comments Glucose (test code = 174 mg/dL 65-99 H 2345-7) BUN (test code = 3094-0) 16 mg/dL 6-24 Creatinine (test code = 1.00 mg/dL 0.76-1.27 2160-0) EGFR Non-Afr. Fijian 87 mL/min/1.73 >59 (test code = 2775) EGFR 101 mL/min/1.73 >59 (test code = 2774) BUN/creatinine ratio 16 9-20 (test code = 3097-3) Sodium (test code = 138 mmol/L 097-012 8605-2) Potassium (test code = 4.0 mmol/L 3.5-5.2 2823-3) Chloride (test code = 96 mmol/L 96-106 5-0) CO2 (test code = 2027-9) 26 mmol/L 20-29 Calcium (test code = 9.6 mg/dL 8.7-10.2 62531-8) Protein (test code = 7.0 g/dL 6-8.5 2885-2) Albumin, S (test code = 4.2 g/dL 4-5 1751-7) Globulin, total (test 2.8 g/dL 1.5-4.5 code = 61603-6) Albumin/globulin ratio 1.5 1.2-2.2 (test code = 1759-0) Total bilirubin (test 0.6 mg/dL 0-1.2 code = 1975-2) Alkaline phosphatase 108 39- 117 IU/L (test code = 6768-6) AST (test code = 1920-8) 16 0- 40 IU/L ALT (test code = 1742-6) 22 0- 44 IU/L CARLYN (test code = CARLYN) Performed at: - [facility] [place], [place] [id number] Director: Kings Landin MD, Phone: [phone] Lab Interpretation (test Abnormal code = 59415-4) [place] Yazidi
--- NOTE | 2020-11-27 20:14 | RAD REPORT ---
EXAM DESCRIPTION: RAD - Chest Single View - 11/27/2020 8:08 pm CLINICAL HISTORY: HTN Chest pain. COMPARISON: Chest Single View dated 05/04/2020; Chest Single View dated 04/13/2020; CHEST SINGLE VIEW dated 06/13/2013 FINDINGS: Portable technique limits examination quality. The lungs are grossly clear. The heart is normal in size. No displaced fractures. IMPRESSION: No acute intrathoracic process suspected.
[2020-11-27] MEDS ORDERED: ONDANSETRON 4 MG/2 ML VIAL ONE (20:17)
[2020-11-27] MEDS ORDERED: NA CHLORIDE 0.9% 1,000 ML ONE (20:17)
[2020-11-27] MEDS ORDERED: MEPERIDINE HCL 25 MG/ML SYR ONE (20:17)
[2020-11-27 20:28] LABS: Absolute Lymphocytes (CBC) 2.7 K/uL (0.7-4.9); Hematocrit 48.3 % (39.6-49.0); Lymphocytes % 31.9 % (15.3-44.8); MPV 9.5 fL (7.6-11.3); RBC Red Blood Cell Count 5.65 M/uL (4.33-5.43)
[2020-11-27 20:35] LABS: ALT/SGPT 20 U/L (12-78); Alkaline Phosphatase 117 U/L (45-117); BUN Blood Urea Nitrogen 18 mg/dL (7-18); Bicarbonate 29 mmol/L (21-32); Bilirubin Direct < 0.1 mg/dL (0-0.2); Bilirubin Total 0.4 mg/dL (0.2-1.0); Glucose Level 212 mg/dL (74-106); Lipase 1144 U/L (73-393); NT PRO-BNP 60 pg/mL (<125); Protein, Total 7.8 g/dL (6.4-8.2); Sodium Level 139 mmol/L (136-145); Troponin (Emerg Dept Use Only) < 0.02 ng/mL (0.0-0.045)
[2020-11-27 20:42] LABS: Potassium 4.2 mmol/L (3.5-5.1)
[2020-11-27 20:43] LABS: AST/SGOT 16 U/L (15-37); Magnesium 2.3 mg/dL (1.8-2.4)
[2020-11-27 20:48] LABS: Protime INR 0.98
--- NOTE | 2020-11-27 21:03 | RAD REPORT ---
EXAM DESCRIPTION: CT - Head Brain Wo Cont - 11/27/2020 8:56 pm CLINICAL HISTORY: HTN;Headache Headache, drowsiness COMPARISON: No comparisons TECHNIQUE: All CT scans are performed using dose optimization technique as appropriate and may inclu de automated exposure control or mA/KV adjustment according to patient size. FINDINGS: No intracranial hemorrhage, hydrocephalus or extra-axial fluid collection.No areas of brai n edema or evidence of midline shift. The paranasal sinuses and mastoids are clear. The calvarium is intact. IMPRESSION: No acute intracranial abnormality.
--- NOTE | 2020-11-27 21:11 | RAD REPORT ---
EXAM DESCRIPTION: CT - Angio Aorta For Dissection - 11/27/2020 8:56 pm CLINICAL HISTORY: Chest pain radiating to the back. abdominal pain/back pain COMPARISON: No comparisons TECHNIQUE: CT angiography of the aorta was performed with MIPs. All CT scans are performed using dose optimization technique as appropriate and may include automated exposure control or mA/KV adjustment according to patient size. FINDINGS: A left aortic arch is present with normal branching pattern of the great vessels.No acute aortic finding is seen such as aneurysm, penetrating ulcer or dissection. The celiac axis, SMA, CARMEL and renal arteries are patent. No evidence of pulmonary embolism. The lungs are clear. Postsurgical changes about the stomach. The liver demonstrates no focal mass or biliary dilatation.The spleen, pancreas, adrenal glands and k idneys are within normal limits for arterial phase imaging. No bowel obstruction, free fluid or abscess.Normal appendix.No pathologic enlarged lymphadenopathy id entified. Mild lumbosacral degenerative changes. IMPRESSION: No acute aortic finding is demonstrated.
[2020-11-27 21:22] LABS: Urine Blood TRACE (NEG); Urine Glucose 2+ (NEG); Urine Protein 1+ (NEG); Urine Specific Gravity 1.015 (1.005-1.030); Urine pH 5.5 (5.0-7.0)
[2020-11-27 21:32] LABS: Urine Bacteria NONE SEEN /HPF (NONE SEEN); Urine RBC <5 /HPF (NONE SEEN)
[2020-11-27] MEDS ORDERED: HYDRALAZINE HCL 20 MG/ML VIAL ONE (22:13)
--- NOTE | 2020-11-27 22:34 | ER ---
Nurse's Notes [facility] Name: Osmany Ojeda Age: 50 yrs Sex: Male : 1970 Arrival Date: 11/27/2020 Time: 16:14 Bed 2 Private MD: Diagnosis: Acute pancreatitis;Hypertensive heart disease;Diabetes mellitus due to underlying condition with hyperglycemia Presentation: 11/27 16:21 Chief complaint: Patient states: RLQ abd pain that wraps around to R flank for 3 days. ll1 Went to [place], BP 215/103. Sent in for eval of BP and abd pain. Coronavirus screen: Client denies travel out of the [place] in the last 14 days. At this time, the client does not indicate any symptoms associated with coronavirus-19. Ebola Screen: Patient denies travel to an Ebola-affected area in the 21 days before illness onset. Initial Sepsis Screen: Does the patient meet any 2 criteria? No. Patient's initial sepsis screen is negative. Does the patient have a suspected source of infection? Yes: Acute abdominal pain. Risk Assessment: Do you want to hurt yourself or someone else? Patient reports no desire to harm self or others. Onset of symptoms was November 24, 2020. 16:21 Method Of Arrival: Ambulatory [facility] 16:21 Acuity: JOSEPH 2 ll1 Historical: - Allergies: 16:23 Lisinopril; ll1 - PMHx: 16:23 acid reflux; Hypertension; Diabetes - IDDM; PTSD; Sleep Apnea; ll1 - PSHx: 16:23 Gastric Bypass; ll1 - Immunization history:: Flu vaccine is not up to date. - Social history:: Smoking status: Patient denies any tobacco usage or history of. Screenin:31 Abuse screen: Denies threats or abuse. Denies injuries from another. Nutritional rv screening: No deficits noted. Tuberculosis screening: No symptoms or risk factors identified. Fall Risk None identified. Assessment: 20:00 General: Appears comfortable, Behavior is calm, cooperative. rv 20:00 Pain: Complains of pain in abdomen. Neuro: Level of Consciousness is awake, alert, rv obeys commands, Oriented to person, place, time, situation. Cardiovascular: Patient's skin is warm and dry. Respiratory: Airway is patent Respiratory effort is even, unlabored, Breath sounds are clear bilaterally. GI: Bowel sounds present X 4 quads. Abd is soft and non tender X 4 quads. Derm: Skin is intact. 21:15 Reassessment: Patient appears in no apparent distress at this time. No changes from previously documented assessment. Patient and/or family updated on plan of care and expected duration. Pain level reassessed. Patient is alert, oriented x 3, equal unlabored respirations, skin warm/dry/pink. 22:30 Reassessment: Patient appears in no apparent distress at this time. Patient and/or family updated on plan of care and expected duration. Pain level reassessed. Patient is alert, oriented x 3, equal unlabored respirations, skin warm/dry/pink. Patient states feeling better. Patient states symptoms have improved. Vital Signs: 16:21 BP 186 / 112; Pulse 82; Resp 17; Temp 97.7; Pulse Ox 99% ; Weight 89.36 kg; Height 5 ll1 ft. 8 in. (172.72 cm); Pain 8/10; 20:31 BP 155 / 91; Pulse 65; Resp 19; Pulse Ox 100% on R/A; rv 21:30 BP 191 / 93; Pulse 58; Resp 18; Pulse Ox 100% on R/A; wh 22:30 BP 167 / 93; Pulse 63; Resp 18; Pulse Ox 100% on R/A; wh 16:21 Body Mass Index 29.95 (89.36 kg, 172.72 cm) ll1 ED Course: 16:14 Patient arrived in ED. as 16:23 Triage completed. ll1 16:24 Arm band placed on. ll1 19:41 Gunnar Schmidt PA is PHCP. cp 19:41 Gunnar Bustos MD is Attending Physician. cp 19:52 Jorge A Lima RN is Primary Nurse. rv 20:00 Patient has correct armband on for positive identification. color television console monitor on. Pulse rv ox on. NIBP on. 20:05 Inserted saline lock: 20 gauge in left antecubital area, using aseptic technique. Blood rv collected. 20:05 Initial lab(s) drawn, by me, sent to lab. rv 20:08 XRAY Chest (1 view) In Process Unspecified. EDMS 20:56 CT Aorta for Dissection In Process Unspecified. EDMS 20:56 CT Head Brain wo Cont In Process Unspecified. EDMS 21:19 Urine Microscopic Only Sent. 22:32 Travon Dia MD is Referral Physician. 22:53 No provider procedures requiring assistance completed. IV discontinued, intact, bleeding controlled, No redness/swelling at site. Administered Medications: 20:14 Drug: Zofran (Ondansetron) 4 mg Route: IVP; Site: left antecubital; rv 22:53 Follow up: Response: No adverse reaction; Nausea is decreased 20:14 Drug: Demerol 25 mg {Note: rass 0.} Route: IVP; Site: left antecubital; rv 22:53 Follow up: Response: No adverse reaction; Pain is decreased; RASS: Alert and Calm (0) 20:14 Drug: NS 0.9% 1000 ml Route: IV; Rate: 1 bolus; Site: left antecubital; rv 22:54 Follow up: Response: No adverse reaction; IV Status: Completed infusion 22:04 Drug: hydrALAZINE 10 mg Route: IV; Rate: calculated rate; Site: left antecubital; 22:53 Follow up: Response: No adverse reaction; Blood pressure is lowered; IV Status: Completed infusion Outcome: 22:33 Discharge ordered by MD. cp 22:53 Discharged to home ambulatory. 22:53 Condition: stable 22:53 Discharge instructions given to patient, Instructed on discharge instructions, follow up and referral plans. medication usage, POC Demonstrated understanding of instructions, follow-up care, medications, POC Prescriptions given X 2. 22:54 Patient left the ED. Signatures: Dispatcher [employer] EDMS Yolie Matias Corey, PA PA cp Champ Rendon Winsy, RN RN Jorge A Lima RN RN rv Tyrone Saravia, RN RN ll1
--- NOTE | 2020-11-27 22:34 | EDPHYS ---
Physician Documentation [facility] Name: Osmany Ojeda Age: 50 yrs Sex: Male : 1970 Arrival Date: 11/27/2020 Time: 16:14 Bed 2 Private MD: ED Physician Gunnar Bustos HPI: 11/27 19:55 This 50 yrs old Male presents to ER via Ambulatory with complaints of High cp Blood Pressure, Abdominal Pain, Back Pain. 19:55 The patient presents with abdominal pain right mid abdomen. Onset: The symptoms/episode cp began/occurred today. The symptoms radiate to right back. 19:55 Associated signs and symptoms: Pertinent positives: diarrhea, nausea, Pertinent cp negatives: blood in stools, palpitations, shortness of breath, testicular pain, vomiting. 19:58 The patient has elevated blood pressure and discovered this at a physician's office, and sent to the emergency department for evaluation, Patient reports history of hypertension. Admits to not taking hypertensive meds as prescribed but reports taking meds this morning. 19:58 Associated signs and symptoms: Pertinent positives: headache, Pertinent negatives: cp chest pain, lightheadedness, weakness. Historical: - Allergies: 16:23 Lisinopril; ll1 - PMHx: 16:23 acid reflux; Hypertension; Diabetes - IDDM; PTSD; Sleep Apnea; ll1 - PSHx: 16:23 Gastric Bypass; ll1 - Immunization history:: Flu vaccine is not up to date. - Social history:: Smoking status: Patient denies any tobacco usage or history of. ROS: 20:00 Constitutional: Negative for body aches, chills, fever, poor PO intake. cp 20:00 Eyes: Negative for injury, pain, redness, and discharge. cp 20:00 ENT: Negative for ear pain, sore throat, difficulty swallowing, difficulty handling secretions. 20:00 Cardiovascular: Negative for chest pain, edema, palpitations. 20:00 Respiratory: Negative for cough, shortness of breath, wheezing. 20:00 Abdomen/GI: Positive for abdominal pain, nausea, vomiting, Negative for diarrhea, constipation, black/tarry stool, rectal bleeding. 20:00 Back: Positive for radiated pain, of the right mid back and right low back, Negative for injury or acute deformity. 20:00 : Negative for urinary symptoms, testicular pain 20:00 Skin: Negative for rash. 20:00 Neuro: Positive for headache, Negative for altered mental status, dizziness, weakness. 20:00 All other systems are negative. Exam: 20:05 ECG was reviewed by the Attending Physician. cp 20:08 Constitutional: The patient appears in no acute distress, alert, awake, cp non-diaphoretic, non-toxic, well developed, well nourished, uncomfortable. 20:08 Head/Face: Normocephalic, atraumatic. cp 20:08 Eyes: Periorbital structures: appear normal, Pupils: equal, round, and reactive to light and accomodation, Extraocular movements: intact throughout, Conjunctiva: normal, no exudate, no injection, Sclera: no appreciated abnormality, Lids and lashes: appear normal, bilaterally. 20:08 ENT: External ear(s): are unremarkable, Nose: is normal, Mouth: Lips: moist, Oral mucosa: pink and intact, moist, Posterior pharynx: Airway: no evidence of obstruction, patent. 20:08 Neck: ROM/movement: is normal, is supple, without pain, no range of motions limitations, no nuchal rigidity. 20:08 Chest/axilla: Inspection: normal, Palpation: is normal, no crepitus, no tenderness. 20:08 Cardiovascular: Rate: normal, Rhythm: regular, Edema: is not appreciated, JVD: is not appreciated. 20:08 Respiratory: the patient does not display signs of respiratory distress, Respirations: normal, no use of accessory muscles, no retractions, labored breathing, is not present, Breath sounds: are clear throughout, no decreased breath sounds, no stridor, no wheezing. 20:08 Abdomen/GI: Inspection: abdomen appears normal, Bowel sounds: active, all quadrants, Palpation: soft, in all quadrants, moderate abdominal tenderness, in the right upper quadrant and right lower quadrant, rebound tenderness, is not appreciated, involuntary guarding, is not appreciated. 20:08 Back: pain, that is moderate, of the right mid back and right low back, ROM is normal, vertebral tenderness, is not appreciated. 20:08 Skin: no rash present. 20:08 Neuro: Orientation: to person, place \T\ time. Mentation: is normal, Cerebellar function: is grossly normal, Motor: moves all fours, strength is normal, Sensation: is normal. Vital Signs: 16:21 BP 186 / 112; Pulse 82; Resp 17; Temp 97.7; Pulse Ox 99% ; Weight 89.36 kg; Height 5 ll1 ft. 8 in. (172.72 cm); Pain 8/10; 20:31 BP 155 / 91; Pulse 65; Resp 19; Pulse Ox 100% on R/A; rv 21:30 BP 191 / 93; Pulse 58; Resp 18; Pulse Ox 100% on R/A; wh 22:30 BP 167 / 93; Pulse 63; Resp 18; Pulse Ox 100% on R/A; wh 16:21 Body Mass Index 29.95 (89.36 kg, 172.72 cm) ll1 MDM: 19:43 Patient medically screened. cp 20:00 Differential diagnosis: Malignant HTN, CVA, intracerebral hemorrhage, AAA, bowel cp obstruction, cholecystitis, Cholelithiasis, diverticulitis, gastritis, non-specific abd pain, pancreatitis. 22:30 Data reviewed: vital signs, nurses notes, lab test result(s), EKG, radiologic studies, cp CT scan, plain films. 22:30 Test interpretation: by ED physician or midlevel provider: ECG, plain radiologic cp studies. Counseling: I had a detailed discussion with the patient and/or guardian regarding: the historical points, exam findings, and any diagnostic results supporting the discharge/admit diagnosis, the presence of at least one elevated blood pressure reading (>120/80) during this emergency department visit, lab results, radiology results, to return to the emergency department if symptoms worsen or persist or if there are any questions or concerns that arise at home. Response to treatment: the patient's symptoms have markedly improved after treatment. ED course: Discussed results of labs showing elevated lipase. Discuss admitting or transferring to [place] for pain control but patient declined at this time and would like discharge to home for continued monitoring. 11/27 19:52 Order name: Basic Metabolic Panel cp 11/27 19:52 Order name: CBC with Diff cp 11/27 19:52 Order name: LFT's cp 11/27 19:52 Order name: Magnesium cp 11/27 19:52 Order name: NT PRO-BNP cp 11/27 19:52 Order name: PT-INR cp 11/27 19:52 Order name: Troponin (emerg Dept Use Only); Complete Time: 21:32 cp 02/04 19:52 Order name: Urine Microscopic Only; Complete Time: 21:34 cp 02/04 19:53 Order name: Basic Metabolic Panel; Complete Time: 21:32 EDMS /04 21:32 Interpretation: Normal except: GLUC 212; GFR 63. cp /04 19:53 Order name: CBC with Automated Diff; Complete Time: 21:32 EDMS 04 21:32 Interpretation: Normal except: RBC 5.65. cp 11/27 19:53 Order name: Liver (Hepatic) Function; Complete Time: 21:32 EDMS 04 19:54 Order name: Magnesium; Complete Time: 21:32 EDMS /04 19:54 Order name: NT PRO-BNP; Complete Time: 21:32 EDMS 04 19:54 Order name: Protime (+INR); Complete Time: 21:32 EDMS 04 19:52 Order name: XRAY Chest (1 view); Complete Time: 21:32 cp 11/27 19:52 Order name: EKG; Complete Time: 19:54 cp 04 19:52 Order name: Cardiac monitoring; Complete Time: 20:11 cp 04 19:52 Order name: EKG - Nurse/Tech; Complete Time: 20:11 cp 04 19:52 Order name: IV Saline Lock; Complete Time: 20:11 cp 04 19:52 Order name: Labs collected and sent; Complete Time: 20:11 cp 11/27 19:52 Order name: CT Head Brain wo Cont; Complete Time: 21:32 cp 11/27 19:52 Order name: CT Aorta for Dissection; Complete Time: 21:32 cp 04 21:33 Interpretation: Report reviewed. cp 04 20:16 Order name: Lipase wh 11/27 20:18 Order name: Lipase; Complete Time: 21:32 EDMS 04 21:34 Interpretation: Abnormal: LIP 1144. cp 04 21:18 Order name: Urine Dipstick--Ancillary (enter results); Complete Time: 21:32 mw2 11/27 19:52 Order name: O2 Per Protocol; Complete Time: 20:11 cp 11/27 19:52 Order name: O2 Sat Monitoring; Complete Time: 20:11 cp 11/27 19:52 Order name: Urine Dipstick-Ancillary (obtain specimen); Complete Time: 21:19 cp EC:05 Rate is 65 beats/min. Rhythm is regular. MD interval is normal. QRS interval is normal. cp QT interval is normal. Interpreted by me. Reviewed by me. Administered Medications: 20:14 Drug: Zofran (Ondansetron) 4 mg Route: IVP; Site: left antecubital; rv 22:53 Follow up: Response: No adverse reaction; Nausea is decreased 20:14 Drug: Demerol 25 mg {Note: rass 0.} Route: IVP; Site: left antecubital; rv 22:53 Follow up: Response: No adverse reaction; Pain is decreased; RASS: Alert and Calm (0) 20:14 Drug: NS 0.9% 1000 ml Route: IV; Rate: 1 bolus; Site: left antecubital; rv 22:54 Follow up: Response: No adverse reaction; IV Status: Completed infusion 22:04 Drug: hydrALAZINE 10 mg Route: IV; Rate: calculated rate; Site: left antecubital; 22:53 Follow up: Response: No adverse reaction; Blood pressure is lowered; IV Status: Completed infusion Disposition: 11/28 05:57 Co-signature as Attending Physician, Gunnar Bustos MD I agree with the [facility]. Disposition: 11/27/20 22:33 Discharged to Home. Impression: Acute pancreatitis, Hypertensive heart disease, Diabetes mellitus due to underlying condition with hyperglycemia. - Condition is Stable. - Discharge Instructions: Hypertension, Acute Pancreatitis, Blood Glucose Monitoring, Adult, Diabetes Mellitus and Food, How to Take Your Blood Pressure, [id number], Managing Your Hypertension. - Prescriptions for Bentyl 20 mg Oral Tablet - take 1 tablet by ORAL route every 6 hours As needed; 30 tablet. Zofran 4 mg Oral Tablet - take 1 tablet by ORAL route every 12 hours As needed; 20 tablet. - Medication Reconciliation Form, Thank You Letter, Antibiotic Education, Prescription Opioid Use form. - Follow up: Private Physician; When: 1 - 2 days; Reason: uncontrolled hypertension. Follow up: Travon Dia MD; When: 1 - 2 days; Reason: pancreatitis. - Problem is new. - Symptoms have improved. Signatures: Dispatcher [employer] Gunnar Peace MD MD cha Page, Corey, PA PA cp Brandy Ames, RN RN Jorge A Lima, RN RN rv Tyrone Saravia RN RN ll1 Corrections: (The following items were deleted from the chart) 11/27 20:18 20:16 Lipase ordered. EDMS EDMS 22:34 22:33 11/27/2020 22:33 Discharged to Home. Impression: Acute pancreatitis; Hypertensive cp heart disease. Condition is Stable. Forms are Medication Reconciliation Form, Thank You Letter, Antibiotic Education, Prescription Opioid Use. Follow up: Private Physician; When: 1 - 2 days; Reason: uncontrolled hypertension. Follow up: Travon Dia; When: 1 - 2 days; Reason: pancreatitis. Problem is new. Symptoms have improved. cp 22:54 22:34 11/27/2020 22:33 Discharged to Home. Impression: Acute pancreatitis; Hypertensive wh heart disease; Diabetes mellitus due to underlying condition with hyperglycemia. Condition is Stable. Forms are Medication Reconciliation Form, Thank You Letter, Antibiotic Education, Prescription Opioid Use. Follow up: Private Physician; When: 1 - 2 days; Reason: uncontrolled hypertension. Follow up: Travon Dia; When: 1 - 2 days; Reason: pancreatitis. Problem is new. Symptoms have improved. cp
[2020-11-27 23:28] VITALS: TEMP 97.7
[2020-11-27 23:29] VITALS: O2SAT 100
[2020-11-27 23:31] VITALS: BP 167/93
== END 2020-11-27 22:54 | disposition home or self-care (01) ==
LOC: ER 16:10
DX: K85.90 Acute pancreatitis without necrosis or infection, unspecified (principal); I11.9 Hypertensive heart disease without heart failure; E11.65 Type 2 diabetes mellitus with hyperglycemia; I10 Essential (primary) hypertension; Z88.8 Allergy status to other drugs, medicaments and biological substances
CPT/HCPCS: 96365; 96361; 93005; 85025; 80048; 36415; 83735; 85610; 80076; 84484; 83690; 83880; 70450; 71275; 74175; 71045; 96375; 99284; Q9967; J0360; J2175; J7030; J2405; 81003; 81015

== ENCOUNTER 2021-05-09 22:30 | Emergency (ER) | payer OTHER ==
--- OUTSIDE RECORDS SUMMARY | 2021-05-09 22:32 | XMS REPORT | Continuity of Care Document ---
:1970 Author Organization [facility] t Address [address] [place] [address] Care Team Providers Name Role Phone Car TELLEZ, Theodora Nam Primary Care Physician [phone] Doctor Unassigned, Name Attending Clinician Unavailable Sobia TELLEZ, Lalita Attending Clinician [phone] Bri Attending Clinician Unavailable James VALLADARES Attending Clinician Unavailable Bandar VALLADARES Attending Clinician Unavailable Aminata TELLEZ Attending Clinician Jose VALLADARES Attending Clinician Unavailable Lab, Fam Pob I Attending Clinician Unavailable Madelyn KEBEDE, G Attending Clinician Unavailable Pob1, Care Clinic Attending Clinician Unavailable Problems Condition Condition Condition Status Onset Resolution Last Treating Co mments Source Name Details Category Date Date Treatment Clinician Date Morbid Morbid Disease Active 2017-10 [place] obesity obesity 0-18 [facility] due to due [...] of insulin insulin Mixed Mixed Disease Active [place] hyperlipid hyperlipid 05-18 Me thodi emia emia 00:00: st 00 Benign Benign Disease Active [place] essential essential 7-14 Meth leandra HTN HTN 00:00: st 00 Allergies, Adverse Reactions, Alerts Allergy Allergy Status Severity Reaction(s) Onset Inactive Treating Comm ents Source Name Type Date Date Clinician Pollen Propensi Active 2016-10 Pt [place] Extracts ty to 11-13 allergic Method i adverse 00:00: to dust st reaction 00 s to drug Lisinopr Propensi Active Other (See [place]ough [place] ty to Comments) 03-31 [facility] adverse 00:00: st reaction 00 s to drug Family History Family Member Diagnosis Comments Start Date Stop Date Source Natural father Diabetes [facility] thodist Natural father Hypertension [place] [facility] Natural mother Diabetes [facility] thod[facility] Natural mother Heart disease [place] [facility] Natural mother Hypertension [facility] Natural mother Stroke [facility] thodist Social History Social Habit Start Date Stop Date Quantity Comments Source History [facility] Meth odist Alcohol Std Drinks History [facility] Meth odist Alcohol Binge Tobacco use and 2020-06-23 2020-06-23 Never used [facility] ethodist exposure 00:00:00 00:00:00 Alcohol intake 2020-06-23 2020-06-23 Current [facility] thodist 00:00:00 00:00:00 non-drinker of alcohol (finding) History [facility] 2020-06-23 2020-06-23 1 [place] Meth odist Alcohol Frequency 00:00:00 00:00:00 Sex Ass[birth year] [facility] ethodist 00:00:00 00:00:00 Smoking Status Start Date Stop Date Source Never smoker [place] Methodis t Medications Ordered Filled Start Stop Current Ordering Indication Dosage Frequency Signature Comments Components Source Medication Medication Date Date Medication? Clinician (SIG) Name Name atorvastati Yes 40mg QD Take 40 mg [place] n (LIPITOR) 06-23 by mouth Meth leandra 40 MG 14:21: nightly. st tablet 27 cyanocobala 2019-[address] [place] min, - under the [facility] vitamin 14:21: tongue st B-12, 27 daily. (VITAMIN B-12) 1,000 mcg tablet, sublingual calcium 2020-0 Yes QD Take by [place] carbonate/v 06-23 mouth [facility] itamin D3 14:21: daily. st (CALCIUM 27 600 + D,3, ORAL) iron,carb/v 2020-0 Yes QD Take by Anisa hawkins it C/vit 06-23 mouth [facility] B12/folic 14:21: daily. st (IRON 100 27 PLUS ORAL) UNABLE TO 2020-0 Yes QD daily. Med juanita FIND 06-23 Name: Method[facility] 14:21: Bariatric st 27 Advantage MVI los[facility] mouth. [facility] (LOSARTAN 14:21: st ORAL) 27 amlodipine 2020-0 Yes Take by [facility] ton besylate 06-23 mouth. [facility] (AMLODIPINE 14:21: st ORAL) 27 sulfamethox 2020-0 2020- No 1{tbl} Q.5D Take 1 [place] azole-trime 06-23 09-07 tablet by Nh thodi thoprim 00:00: 23:[address] (BACTRIM 00 :00 (two) DS) 800-160 times a mg per day for 7 tablet days. flash 2020-0 Yes 1{kit} 1 kit [place] glucose 8-05 continuous Method i scanning 00:00: ly. st reader 00 Freestyle (FreeStyle ramy Ramy 14 Victoria Use Day Victoria) as misc directed flash 2020-0 Yes 1{kit} Q14D 1 kit [place] glucose 8-05 every 14 [facility] sensor 00:00: [...] injection daily. (vial) gabapentin 2019-0 Yes 100mg [id number] Take 1 [place] (NEURONTIN) 2-28 [id number] capsule Methodi 100 mg 00:00: 3D ([address] capsule 00 total) by mouth 3 (three) times a day. citalopram Yes 40mg QD Take 1 [place] (CeleXA) 40 9-17 tablet (40 Me thodi MG tablet 00:00: mg total) st 00 by mouth nightly. blood sugar Yes Uncontrolle Testing 4 [place] diagnostic 8-11 d type 2 X day Meth leandra strips 00:00: diabetes st strip test 00 mellitus strips without complicatio n, with long-term current use of insulin lancets Yes Uncontrolle Testing 4 [place] misc 8-11 d type 2 X Day Methodi 00:00: diabetes st 00 mellitus without complicatio n, with long-term current use of insulin lancets 33 Yes Uncontrolle Testing 3 [place] gauge misc 8-04 d type 2 X Day Meth leandra 00:00: diabetes st 00 mellitus with complicatio n, with long-term current use of insulin (HCC) blood sugar Yes Uncontrolle Testing 3 [place] diagnostic 7-26 d type 2 X Day Meth leandra strips 00:00: diabetes st strip test 00 mellitus strips with complicatio n, with long-term current use of insulin (HCC) Vital Signs Vital Name Observation Time Observation Value Comments Source Systolic blood 2020-06-23 14:22:00 141 mm[Hg] [place] n [facility]ae[facility] pressure Diastolic blood 2020-06-23 14:22:00 74 mm[Hg] [place] [facility]ae[facility] pressure Heart rate 2020-06-23 14:22:00 60 /min [place] [facility] Body weight 2020-06-11 10:38:00 95.255 kg Sebastián Moon BMI 2020-06-11 10:38:00 31.93 kg/m2 [place] [facility] Body height 2020-06-11 10:38:00 172.7 cm Sebastián Moon Procedures Procedure Date / Time Performed Performing Clinician Sour e TESTOSTERONE LEVEL, FREE 2020-05-14 10:50:00 Sky Ramsayist AND TOTAL, MALE Jadenjudith Celis CBC WITH PLATELET AND 2020-05-14 10:50:00 Paul Ramsay DIFFERENTIAL Jaden Celis HEMOGLOBIN A1C 2020-05-14 10:47:00 Rosario Coates Met [facility] planoist COMPREHENSIVE METABOLIC 2020-05-14 10:47:00 Rosario Coates Mandaeism PANEL Plan of Care Planned Activity Planned Date Details Comments Source Future Scheduled 2021-05-24 INFLUENZA VACCINE [place] [facility] Test 00:00:00 [code = INFLUENZA VACCINE] Future Scheduled 2020-09-27 DIABETES: RETINAL EYE [place] [facility] Test 00:00:00 EXAM [code = DIABETES: RETINAL EYE EXAM] Future Scheduled 2020-09-10 URINE MICROALBUMIN [place] [facility] Test 00:00:00 [code = URINE MICROALBUMIN] Future Scheduled 2020 COLONOSCOPY SCREENING [place] [facility] Test 00:00:00 [code = COLONOSCOPY SCREENING] Future Scheduled 2020 SHINGLES VACCINES (#1) [place] [facility] Test 00:00:00 [code = SHINGLES VACCINES (#1)] Future Scheduled 2020-03-12 DIABETIC FOOT EXAM [place] [facility] Test 00:00:00 [code = DIABETIC FOOT EXAM] Future Scheduled 1988 Hepatitis C screening [place] [facility] Test 00:00:00 (procedure) [code = 403916204] Future Scheduled 1982 COVID-19 VACCINE (1) Anisa stomarcos [facility]aeism Test 00:00:00 [code = COVID-19 VACCINE (1)] Encounters Start End Encounter Admission Attending Care Care Encounter Source Date/Time Date/Time Type Type Clinicians Facility Department ID 2021-03-19 2021-03-19 Orders Doctor CAMPOS [id number] 00:00:00 00:00:00 Only Unassigned, RENEE [id number] [place] [facility] [id number] 2021-02-09 2021-02-09 Orders Doctor CAMPOS [id number] 00:00:00 00:00:00 Only UnassignedRENEE [id number] [place] [facility] [id number] 2020-06-23 2020-06-23 Outpatient [facility] [id number] [place] 00:00:00 00:00:00 OVAL, [address] 2020-06-11 2020-06-11 Outpatient [facility] [id number] [place] 00:00:00 00:00:00 OVAL, [address] 2020-06-09 2020-06-09 Outpatient [facility] [id number] [place] 00:00:00 00:00:00 OVAL, [address] 2020-05-27 2020-05-27 Outpatient PATHAM, [facility] [id number] [place] 00:00:00 00:00:00 ROSARIO 002 Metho di 2020-04-28 2020-04-28 Laboratory Lab, [facility] [id number] 15:22:24 15:42:24 Only Fam [facility] [id number] [place] [id number] Professio [phone] nal [address] 2020-04-13 2020-04-13 [facility] [id number] 00:00:00 00:00:00 Alondra mora [id number] [facility] [id number] 2020-04-11 2020-04-11 Urgent Pob1, Acute [facility] [id number] 15:51:25 16:47:07 [facility] [id number] [place] [id number] Professio [phone] nal [address] Results This patient has no known results.
--- NOTE | 2021-05-10 00:59 | ER ---
Nurse's Notes [facility] Name: Osmany Ojeda Age: 51 yrs Sex: Male : 1970 Arrival Date: 05/09/2021 Time: 22:33 Bed Waiting Private MD: Diagnosis: Presentation: 05/09 23:48 Chief complaint: Patient states: he is having vomiting and diarrhea with a headache and bb chest pain x 2 days. Coronavirus screen: diarrhea, headache, vomiting. Ebola Screen: No symptoms or risks identified at this time. Initial Sepsis Screen: Does the patient meet any 2 criteria? No. Patient's initial sepsis screen is negative. Does the patient have a suspected source of infection? No. Patient's initial sepsis screen is negative. Risk Assessment: Do you want to hurt yourself or someone else? Patient reports no desire to harm self or others. Onset of symptoms was May 07, 2021. 23:48 Method Of Arrival: Ambulatory 23:48 Acuity: JOSEPH 2 bb 05/10 00:58 Note notified by registration staff pt leaving the ED. bb Triage Assessment: 05/09 23:50 General: Appears in no apparent distress. Behavior is calm, cooperative. Pain: bb Complains of pain in headache Pain currently is 8 out of 10 on a pain scale. Neuro: Level of Consciousness is awake, alert, obeys commands, Oriented to person, place, time, situation. Cardiovascular: Capillary refill < 3 seconds Patient's skin is warm and dry. Respiratory: Respiratory effort is even, unlabored, Respiratory pattern is regular. GI: Abdomen is non-distended, Reports diarrhea, vomiting, left side of abdomen. Derm: Skin is pink, warm \T\ dry. Musculoskeletal: Circulation, motion, and sensation intact. Historical: - Allergies: 23:50 Lisinopril; bb - Home Meds: 23:50 amlodipine 10 mg tab 1 tab once daily [Active]; escitalopram oxalate Oral [Active]; bb gabapentin 600 mg Oral tab 1 tab twice a day [Active]; Lantus 100 unit/mL Sub-Q soln [Active]; losartan 50 mg Oral tab 1 tab 2 times per day [Active]; Novolog 100 unit/mL Sub-Q soln [Active]; Hydrochlorothiazide Oral [Active]; Amoxicillin Oral [Active]; - PMHx: 23:50 acid reflux; Diabetes - IDDM; Hypertension; PTSD; Sleep Apnea; bb - Immunization history:: Adult Immunizations up to date, Client reports receiving the 2nd dose of the Covid vaccine. - Social history:: Smoking status: Patient denies any tobacco usage or history of. Vital Signs: 23:48 BP 209 / 95; Pulse 54; Resp 16 S; Temp 97.(O); Pulse Ox 100% on R/A; Weight 83.46 kg bb (R); Height 5 ft. 8 in. (172.72 cm) (R); Pain 8/10; 23:48 Body Mass Index 27.98 (83.46 kg, 172.72 cm) bb ED Course: 22:33 Patient arrived in ED. ds1 23:50 Triage completed. bb 23:50 Arm band placed on Patient placed in waiting room, Patient notified of wait time. bb Administered Medications: No medications were administered Outcome: 05/10 00:58 Patient left the ED. bb Signatures: Ling De La Cruz ds1 Marlin Martinez, RN RN bb
[2021-05-10 01:03] VITALS: BP 209/95; TEMP 97; O2SAT 100
== END 2021-05-10 00:58 | disposition left against medical advice (07) ==
LOC: ER 22:30
DX: Z53.21 Procedure and treatment not carried out due to patient leaving prior to being seen by health care provider (principal)
CPT/HCPCS: 99281

== ENCOUNTER 2022-03-24 04:53 | Emergency (ER) | payer OTHER, SELFPAY ==
--- OUTSIDE RECORDS SUMMARY | 2022-03-24 04:57 | XMS REPORT | Continuity of Care Document ---
:1970 Author Organization [facility] t Address [address] [place] [address] Care Team Providers Name Role Phone Car TELLEZ, Theodora Nam Primary Care Physician [phone] Aminata TELLEZ Attending Clinician THOMPSON Attending Clinician Unavailable Doctor Unassigned, Name Attending Clinician Unavailable Sobia TELLEZ, Lalita Attending Clinician [phone] Lab, Fam Pob I Attending Clinician Unavailable Monika RAMIREZP Attending Clinician MONIKA Attending Clinician Unavailable Madelyn KEBEDE, G Attending Clinician Unavailable Pob1, Care Clinic Attending Clinician Unavailable Mario Owen Attending Clinician Mario LAUREN Attending Clinician Unavailable Payers Payer Name Policy Type Policy Number Effective Date Expiration Date S ource Problems Condition Condition Condition Status Onset Resolution Last Treating Co mments Source Name Details Category Date Date Treatment Clinician Date Morbid Morbid Disease Active 2017-10 Methodi obesity obesity 0-18 st due to due to 00:00: Hospita excess excess 00 l calories calories Loose body Loose body Disease Active M ethodi in right in right 4-24 st elbow elbow 00:00: Hospita 00 l Arthritis Arthritis Disease Active Met hodi of right of right 3-26 st elbow elbow 00:00: Hospita 00 l 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 2 ed type 2 05-18 diabetes diabetes 00:00: Hospit a mellitus mellitus 00 l with with complicati complicati on, with on, with long-term long-term current current use of use of insulin insulin Mixed Mixed Disease Active Methodi hyperlipid hyperlipid 05-18 emia emia 00:00: Hospita 00 l Benign Benign Disease Active Methodi essential essential 05-06 HTN HTN 00:00: Hospita 00 l No known No known Disease Unive rs active active ity of problems problems [facility] Allergies, Adverse Reactions, Alerts Allergy Allergy Status Severity Reaction(s) Onset Inactive Treating Comm ents Source Name Type Date Date Clinician Lisinopr Propensi Active Cough Univer s il ty to 04-11 ity of adverse 00:00: [place] reaction 00 Medical s Branch LISINOPR DRUG Active COUGH Univers IL INGREDI 04-11 ity of 00:00: [address] Pollen Propensi Active 2016-10 Pt Methodi Extracts ty to 11-[address] adverse 00:00: to dust Hospita reaction 00 l s to drug Lisinopr Propensi Active Other (See Cough Me thodi il ty to Comments) 03-31 st adverse 00:00: Hospita reaction 00 l s to drug NO KNOWN Drug Active Univers ALLERGIE Class ity of S [facility] Family History Family Member Diagnosis Comments Start Date Stop Date Source Maternal grandmother [facility] Natural mother Diabetes [facility] Natural mother Heart disease [facility] Natural mother Hypertension [facility] Natural mother Stroke [facility] Paternal grandfather [facility] Paternal grandmother [facility] Natural father Diabetes [facility] Natural father Hypertension [facility] Maternal grandfather [facility] Social History Social Habit Start Date Stop Date Quantity Comments Source Exposure to Yes University of SARS-CoV-2 [facility] (event) Branch History SDOH Judaism Alcohol Std Hospital Drinks History SDOH Judaism Alcohol Binge Hospital History SDOH Judaism Alcohol Comment Hospital Alcohol intake 2020-06-23 2020-06-23 Current Judaism 00:00:00 00:00:00 non-drinker of Hospital alcohol (finding) History SDOH 2020-06-23 2020-06-23 1 Judaism Alcohol Frequency 00:00:00 00:00:00 Hospita l Tobacco use and 2017-03-31 2017-03-31 Smokeless tobacco Me thodist exposure 00:00:00 00:00:00 non-user Hospital Sex Assigned At [birth year] M Judaism 00:00:00 00:00:00 Hospital Smoking Status Start Date Stop Date Source Never smoker [facility] Medications Ordered Filled Start Stop Current Ordering Indication Dosage Frequency Signature Comments Components Source Medication Medication Date Date Medication? Clinician (SIG) Name Name Isaura Yes USE 1 KIT Met hodi Ramy 14 06-[address] Day Sensor 00:00: DAYS. Hospit a kit 00 l atorvastati 2020-0 Yes 40mg QD Take 40 mg Methodi n (LIPITOR) 06-[address] 40 MG 14:21: nightly. Hospita tablet 27 l cyanocobala 2020-[address] Metho di min, 06-[address] vitamin 14:21: tongue Hospita B-12, 27 daily. l (VITAMIN B-12) 1,000 mcg tablet, sublingual calcium 2020-0 Yes QD Take by Methodi carbonate/v 06-[address] itamin D3 14:21: daily. Hospit a (CALCIUM 27 l 600 + D,3, ORAL) iron,carb/v 2020-0 Yes QD Take by Met hodi it C/vit 06-[address] B12/folic 14:21: daily. Hospit a (IRON 100 27 l PLUS ORAL) UNABLE TO 2020-0 Yes QD daily. Med Me thodi FIND 06-23 Name: st 14:21: Bariatric Hospita 27 Advantage l MVI losartan 2020-0 Yes Take by Method i potassium 06-[address] (LOSARTAN 14:21: Hospita ORAL) 27 l amlodipine 2020-0 Yes Take by Meth leandra besylate 06-[address] (AMLODIPINE 14:21: Hospit a ORAL) 27 l flash 2020-0 Yes 1{kit} 1 kit Methodi glucose 05-[address] scanning 00:00: ly. Hospita reader 00 Freestyle l (FreeStyle ramy Ramy 14 Independence Use Day Independence) as misc directed flash 2020-0 2020- No 1{kit} Q14D 1 kit Methodi glucose 8-05 08-[address] sensor 00:00: 00:00 (fourteen) Hosp junie (FreeStyle 00 :00 days. l Ramy 14 Freestyle Day Sensor) Ramy kit Sensors Use as directed insulin 2019-0 Yes 20U QD Inject 20 Metho di GLARGINE 8-[address] (LANTUS) 00:00: under the Hosp junie 100 unit/mL 00 skin l injection daily. (vial) benzonatate 2019-0 Yes [id number] 100mg Take 1 Univers (TESSALON 6-19 capsule by itilana of MIGUEL ÁNGEL) 100 00:00: mouth 3 Miles as mg capsule 00 (three) Medica l times Branch daily as needed for Cough. benzonatate 2019-0 Yes [id number] 100mg Take 1 Univers (TESSALON 6-19 capsule by itilana of PERLSINDHU) 100 00:00: mouth 3 Miles as mg capsule 00 (three) Medica l times Branch daily as needed for Cough. benzonatate 2019-0 Yes [id number] 100mg Take 1 Univers (TESSALON 6-19 capsule by itilana of PERLSINDHU) 100 00:00: mouth 3 Miles as mg capsule 00 (three) Medica l times Branch daily as needed for Cough. benzonatate 2019-0 Yes [id number] 100mg Take 1 Univers (TESSALON 6-19 capsule by itilana of PERLSINDHU) 100 00:00: mouth 3 Miles as mg capsule 00 (three) Medica l times Branch daily as needed for Cough. benzonatate 2019-0 Yes [id number] 100mg Take 1 Univers (TESSALON 6-19 capsule by padmaja of PERLSINDHU) 100 00:00: mouth 3 Miles as mg capsule 00 (three) Medica l times Branch daily as needed for Cough. gabapentin Yes 100mg Q.[id number] Take 1 Methodi (NEURONTIN) 2-[id number] 100 mg 00:00: 3D (100 mg Hospita capsule 00 total) by l mouth 3 (three) times a day. citalopram Yes 40mg QD Take 1 Metho di (CeleXA) 40 9-17 tablet (40 st MG tablet 00:00: mg total) Hos maddi 00 by mouth l nightly. blood sugar Yes [id number] Testing 4 Methodi diagnostic 8-[address] strips 00:00: Hospita strip test 00 l strips lancets 2017-0 Yes [id number] Testing 4 Methodi misc 8-[address] 00:00: Hospita 00 l lancets 33 2017-0 Yes [id number] Testing 3 Methodi gauge misc 8-[address] 00:00: Hospita 00 l blood sugar 2017-0 Yes [id number] Testing 3 Methodi diagnostic 7-[address] strips 00:00: Hospita strip test 00 l strips Vital Signs Vital Name Observation Time Observation Value Comments Source Systolic blood 2020-04-11 21:33:00 142 mm[Hg] Univer sity of pressure [facility] Diastolic blood 2020-04-11 21:33:00 88 mm[Hg] Unive rsity of [facility] Heart rate 2020-04-11 21:33:00 78 /min [facility] Body temperature 2020-04-11 21:33:00 36.89 Leatha [facility] Respiratory rate 2020-04-11 21:33:00 17 /min [facility] Body weight 2020-04-11 21:33:00 84.993 kg [facility] Oxygen saturation in 2020-04-11 21:33:00 98 /min University of Arterial blood by [facility] Pulse oximetry Branch Systolic blood 2020-04-11 21:33:00 142 mm[Hg] Univer sity of pressure [facility] Diastolic blood 2020-04-11 21:33:00 88 mm[Hg] Unive rsity of [facility] Heart rate 2020-04-11 21:33:00 78 /min [facility] Body temperature 2020-04-11 21:33:00 36.89 Leatha [facility] Respiratory rate 2020-04-11 21:33:00 17 /min [facility] Body weight 2020-04-11 21:33:[address] Oxygen saturation in 2020-04-11 21:33:00 98 /min University of Arterial blood by [facility] Pulse oximetry Branch Procedures Procedure Date / Time Performing Clinician Source Performed NO SHOW OR MISSED 2021-03-19 15:01:31 Doctor Unassigned, [facility] APPOINTMENT POLICY [facility] ACKNOWLEDGEMENT REFERRAL- REQUEST/RESPONSE 2021-02-09 05:01:00 Doctor Unassigned , [facility] Plan of Care Planned Activity Planned Date Details Comments Source Future Scheduled 2021-10-21 COVID-19 VACCINE (1) Met [facility] Test 08:45:45 [code = COVID-19 VACCINE (1)] Future Scheduled 2021-10-21 Hepatitis C screening [facility] Test 08:45:45 (procedure) [code = 174139729] Future Scheduled 2021-10-21 [facility] 08:45:45 [code = DIABETIC FOOT EXAM] Future Scheduled 2021-10-21 COLONOSCOPY SCREENING Me [facility]ist Hospital Test 08:45:45 [code = COLONOSCOPY SCREENING] Future Scheduled 2021-10-21 SHINGLES [facility]IN[facility] (#[facility] 08:45:45 [code = SHINGLES VACCINES (#1)] Future Scheduled 2021-10-21 URINE [facility]ALBUMIN [facility] Test 08:45:45 [code = URINE MICROALBUMIN] Future Scheduled 2021-10-21 DIABETES: RETINAL EYE Me [facility] Test 08:45:45 EXAM [code = DIABETES: RETINAL EYE EXAM] Future Scheduled 2021-10-21 INFLUENZA VACCINE Method ist Hospital Test 08:45:45 [code = INFLUENZA VACCINE] Encounters Start End Encounter Admission Attending Care Care Encounter Source Date/Time Date/Time Type Type Clinicians Facility Department ID 2021-10-08 2021-10-08 Travel 1.2.840.1 [id number] Methodi 00:00:00 00:00:[address] 3.430.2.7 0.2.7.3.698 Ho spita .3.637544 084.8 l .8 2021-06-10 2021-06-10 Refill Patham, 1.2.840.1 [id number] Methodi 00:00:00 00:00:[address] 3.430.2.7 Hospit a .3.888451 l .8 2021-03-19 2021-03-19 Outpatient [facility] [id number] Univers 10:00:00 10:00:00 RUKHSANA [id number] ity o f [facility] 2021-03-19 2021-03-19 Outpatient R THOMPSON [facility] [id number] Univers 10:00:00 10:00:00 SAULOCT ity o f [facility] 2021-03-19 2021-03-19 Orders Doctor CAMPOS 1.2.840.114 [id number] 00:00:00 00:00:00 Only Unassigned, RENEE 350.1.13.10 [facility] 4.2.7.2.686 [id number] 2021-03-19 2021-03-19 Orders Doctor CAMPOS 1.2.840.114 [id number] Univers 00:00:00 00:00:00 Only Unassigned, RENEE 350.1.13.10 ity of [facility] 4.2.7.2.686 Miles as [phone] [address] 2021-02-09 2021-02-09 Orders Doctor CAMPOS 1.2.840.114 [id number] 00:00:00 00:00:00 Only Unassigned, RENEE 350.1.13.10 [facility] 4.2.7.2.686 [id number] [id number] 2021-02-09 2021-02-09 Orders Doctor CAMPOS 1.2.840.114 [id number] [facility] 00:00:00 00:00:00 Only Unassigned, RENEE 350.1.13.10 ity of [facility] 4.2.7.2.686 Miles as [phone] [address] 2021-01-30 2021-01-30 Travel 1.2.840.1 [id number] [id number] Methodi 00:00:00 00:00:[address] 3.430.2.7 0.2.7.3.698 Ho spita .3.995752 084.8 l .8 2021-01-26 2021-01-26 Telephone [facility] 1.2.840.1 [id number] Methodi 00:00:00 00:00:00 oval, 87439.1.1 059 Jaden Celis 3.430.2.7 Ho torstenta .3.713959 l .8 2020-06-23 2020-06-23 Outpatient [facility] [id number] [place] 00:00:00 00:00:00 OVAL, 429 Method i JADEN 2020-06-11 2020-06-11 Outpatient [facility] [id number] [place] 00:00:00 00:00:00 OVAL, 968 Method i JADEN 2020-06-09 2020-06-09 [facility] [id number] [place] 00:00:00 00:00:00 OVAL, 164 Method i JADEN 2020-05-27 2020-05-27 Outpatient PATHAM, [facility] [id number] [place] 00:00:00 00:00:00 ROSARIO 002 Metho di 2020-04-28 2020-04-28 Laboratory Lab, [facility] Fam Pob I [facility] 1.2. 840.114 [id number] Univers 15:22:24 15:42:24 [facility] 350.1.13.10 ity of [place] 4.2.7.2.686 Miles as Professio [phone] Ne dical [address] Office [facility] 2020-04-28 2020-04-28 Laboratory Lab, [facility] 1.2.840.114 [id number] 15:22:24 15:42:24 Only Fam Pob I Health 350.1.13.10 [place] 4.2.7.2.686 Professio [phone] [place] [address] Office Building [facility] 2020-04-28 2020-04-28 Outpatient R [facility] [id number] Univers 15:20:00 15:20:00 [id number] [facility] 2020-04-28 2020-04-28 Outpatient R MONIKA [facility] [id number] Univers 15:20:00 15:20:00 ARELY [facility] 2020-04-13 2020-04-13 Telephone Sudhir CAMPOS 12.840.114 [id number] [facility] 00:00:00 00:00:00 Alondra mora RENEE 350.1.13.10 ity of [facility] 4.2.7.2.686 Miles as [phone] [address] 2020-04-13 2020-04-13 Telephone Sudhir CAMPOS 1.2.840.114 [id number] 00:00:00 00:00:00 Alondra mora 350.1.13.10 [facility] 4.2.7.2.686 [id number] [facility] 2020-04-11 2020-04-11 Urgent Pob1, Acute Care Clinic [facility] 1. 2.840.114 [id number] Univers 15:51:25 16:47:07 Alix Decker [facility] Ed 350.1.13.10 ity [facility] 4.2.7.2.686 [place] as Professio [phone] [address] Office Building [facility] 2020-04-11 2020-04-11 Urgent Pob1, Acute [facility] 1.2.840.114 [id number] 15:51:25 16:47:07 [facility] 350.1.13.10 [place] 4.2.7.2.686 Professio [phone] [place] [address] [address] 2020-04-11 2020-04-11 Outpatient R LEONIDAS [facility] [id number] Univers 16:20:00 16:20:00 ALIX giang [facility] Results This patient has no known results.
--- NOTE | 2022-03-24 08:10 | RAD REPORT ---
EXAM DESCRIPTION: RAD - Chest Pa And Lat (2 Views) - 03/24/2022 7:39 am CLINICAL HISTORY: Upper back pain Chest pain. COMPARISON: Chest Single View dated 11/27/2020; Chest Single View dated 05/04/2020; Chest Single View d ated 04/13/2020; CHEST SINGLE VIEW dated 06/13/2013 FINDINGS: The lungs are clear. The heart is normal in size. No displaced fractures. IMPRESSION: No acute or concerning finding suspected.
--- NOTE | 2022-03-24 09:27 | ER ---
Nurse's Notes [facility] Name: Osmany Ojeda Age: 52 yrs Sex: Male : 1970 Arrival Date: 03/24/2022 Time: 05:27 Bed 17 Private MD: Diagnosis: Upper Back Pain Presentation: 03/24 06:19 Chief complaint: Patient states: The patient state, " upper back pain when breathing ag7 that started one week ago ". Coronavirus screen: Client denies travel out of the [place] in the last 14 days. At this time, the client does not indicate any symptoms associated with coronavirus-19. Ebola Screen: Patient negative for fever greater than or equal to 101.5 degrees Fahrenheit, and additional compatible Ebola Virus Disease symptoms Patient denies exposure to infectious person. Patient denies travel to an Ebola-affected area in the 21 days before illness onset. Initial Sepsis Screen: Does the patient meet any 2 criteria? No. Patient's initial sepsis screen is negative. Does the patient have a suspected source of infection? No. Patient's initial sepsis screen is negative. Risk Assessment: Do you want to hurt yourself or someone else? Patient reports no desire to harm self or others. Onset of symptoms was March 17, 2022. 06:19 Method Of Arrival: Ambulatory ag7 06:19 Acuity: JOSEPH 3 ag7 Historical: - Allergies: 06:21 Lisinopril; ag7 - Home Meds: 06:21 amlodipine 10 mg tab 1 tab once daily [Active]; losartan 50 mg Oral tab 1 tab 2 times ag7 per day [Active]; Hydrochlorothiazide Oral [Active]; Victoza 2-Walt subcutaneous [Active]; Metformin Oral [Active]; - PMHx: 06:21 acid reflux; Diabetes - IDDM; Hypertension; PTSD; Sleep Apnea; ag7 - PSHx: 06:21 gastric bypass; ag7 - Immunization history:: Adult Immunizations up to date, Client reports receiving the 2nd dose of the Covid vaccine, Flu vaccine is up to date. - Social history:: Smoking status: Patient denies any tobacco usage or history of. Screenin:28 Abuse screen: Denies threats or abuse. Nutritional screening: No deficits noted. ag7 Tuberculosis screening: No symptoms or risk factors identified. Fall Risk No fall in past 12 months (0 pts). No secondary diagnosis (0 pts). No IV (0 pts). Ambulatory Aid- None/Bed Rest/Nurse Assist (0 pts). Gait- Normal/Bed Rest/Wheelchair (0 pts) Mental Status- Oriented to own ability (0 pts). Total Ochoa Fall Scale indicates No Risk (0-24 pts). Assessment: 06:25 General: Appears in no apparent distress. Behavior is calm, cooperative, appropriate ag7 for age. Pain: Complains of pain in back Pain does not radiate. Pain currently is 8 out of 10 on a pain scale. Quality of pain is described as sharp, Pain began suddenly, Is intermittent, Alleviated by nothing. Neuro: Level of Consciousness is awake, alert, obeys commands, Oriented to Appropriate for age. Cardiovascular: Heart tones S1 S2 irregular apical. Capillary refill < 3 seconds in bilateral fingers Patient's skin is warm and dry. Respiratory: Airway is patent Trachea midline Respiratory effort is even, unlabored, Respiratory pattern is regular, symmetrical, Breath sounds are clear bilaterally. 07:14 Reassessment: provider at bedside at this time. tw2 09:25 Reassessment: Patient appears in no apparent distress at this time. No changes from tw2 previously documented assessment. Patient and/or family updated on plan of care and expected duration. Pain level reassessed. Patient is alert, oriented x 3, equal unlabored respirations, skin warm/dry/pink. 09:34 Reassessment: Patient appears in no apparent distress at this time. No changes from tw2 previously documented assessment. Patient and/or family updated on plan of care and expected duration. Pain level reassessed. Patient is alert, oriented x 3, equal unlabored respirations, skin warm/dry/pink. Vital Signs: 06:19 BP 164 / 84; Pulse 58; Resp 20 S; Temp 97.8(O); Pulse Ox 100% on R/A; Weight 87.54 kg ag7 (R); Height 5 ft. 8 in. (172.72 cm) (R); Pain 8/10; 09:24 BP 152 / 86; Pulse 58; Resp 17; Pulse Ox 99% on R/A; tw2 06:19 Body Mass Index 29.35 (87.54 kg, 172.72 cm) [facility] ED Course: 05:27 Patient arrived in ED. bp1 06:11 Hilaria Guevara, RN is Primary Nurse. ag7 06:21 Triage completed. ag7 06:28 Arm band placed on right wrist. ag7 06:28 Patient has correct armband on for positive identification. Bed in low position. Call ag7 light in reach. 06:29 No provider procedures requiring assistance completed. ag7 07:13 Ed Farmer MD is Attending Physician. kdr 07:14 Primary Nurse role handed off by Hilaria Guevara, RN tw2 07:14 Tonia Salinas, RN is Primary Nurse. tw2 07:41 Chest Pa And Lat (2 Views) XRAY In Process Unspecified. EDMS 09:34 Patient did not have IV access during this emergency room visit. tw2 Administered Medications: No medications were administered Medication: 06:28 VIS not applicable for this client. ag7 Outcome: 09:27 Discharge ordered by . kdr 09:34 Discharged to home ambulatory. tw2 09:34 Condition: stable 09:34 Discharge instructions given to patient, Instructed on discharge instructions, follow up and referral plans. medication usage, Demonstrated understanding of instructions, follow-up care, medications, Prescriptions given X 1. 09:34 Patient left the ED. tw2 Signatures: Dispatcher [employer] EDFL Ed Farmer MD MD kdr Tonia Salinas, DELIO RN tw2 Katherine Arriaga [facility] Hilaria Guevara, DELIO RN ag7
--- NOTE | 2022-03-24 09:27 | EDPHYS ---
Physician Documentation [facility] Name: Osmany Ojeda Age: 52 yrs Sex: Male : 1970 Arrival Date: 03/24/2022 Time: 05:27 Bed 17 Private MD: ED Physician Ed Farmer HPI: 03/24 09:56 This 52 yrs old Male presents to ER via Ambulatory with complaints of Back kdr Pain. 09:56 The patient presents with pain that is acute, with no known mechanism of injury. The kdr symptoms are located in the Upper back between the shoulder blades. Onset: The symptoms/episode began/occurred suddenly, 4 day(s) ago. The pain does not radiate. Associated signs and symptoms: The patient has no apparent associated signs or symptoms. The problem was sustained from unknown cause. Modifying factors: The patient symptoms are alleviated by remaining still, the patient symptoms are aggravated by any movement, Deep breathing. Severity of symptoms: At their worst the symptoms were mild, in the emergency department the symptoms are unchanged. The patient has not experienced similar symptoms in the past, The patient has experienced similar episodes in the past, several times. The patient has not recently seen a physician. Historical: - Allergies: 06:21 Lisinopril; ag7 - Home Meds: 06:21 amlodipine 10 mg tab 1 tab once daily [Active]; losartan 50 mg Oral tab 1 tab 2 times ag7 per day [Active]; Hydrochlorothiazide Oral [Active]; Victoza 2-Walt subcutaneous [Active]; Metformin Oral [Active]; - PMHx: 06:21 acid reflux; Diabetes - IDDM; Hypertension; PTSD; Sleep Apnea; ag7 - PSHx: 06:21 gastric bypass; ag7 - Immunization history:: Adult Immunizations up to date, Client reports receiving the 2nd dose of the Covid vaccine, Flu vaccine is up to date. - Social history:: Smoking status: Patient denies any tobacco usage or history of. ROS: 09:56 Constitutional: Negative for fever, chills, and weight loss, Eyes: Negative for injury, kdr pain, redness, and discharge, ENT: Negative for injury, pain, and discharge, Neck: Negative for injury, pain, and swelling, Cardiovascular: Negative for chest pain, palpitations, and edema, Respiratory: Negative for shortness of breath, cough, wheezing, and pleuritic chest pain, Abdomen/GI: Negative for abdominal pain, nausea, vomiting, diarrhea, and constipation, : Negative for injury, bleeding, discharge, and swelling, MS/Extremity: Negative for injury and deformity, Skin: Negative for injury, rash, and discoloration, Neuro: Negative for headache, weakness, numbness, tingling, and seizure activity. Psych: Negative for depression, anxiety, suicide ideation, homicidal ideation, and hallucinations, Allergy/Immunology: Negative for hives, rash, and allergies, Endocrine: Negative for neck swelling, polydipsia, polyuria, polyphagia, and marked weight changes, Hematologic/Lymphatic: Negative for swollen nodes, abnormal bleeding, and unusual bruising. 09:56 Back: Positive for pain with movement, of the left scapular area, right scapular area and thoracic area. Exam: 09:56 Constitutional: This is a well developed, well nourished patient who is awake, alert, kdr and in no acute distress. Head/Face: Normocephalic, atraumatic. Eyes: Pupils equal round and reactive to light, extra-ocular motions intact. Lids and lashes normal. Conjunctiva and sclera are non-icteric and not injected. Cornea within normal limits. Periorbital areas with no swelling, redness, or edema. Neck: Trachea midline, no thyromegaly or masses palpated, and no cervical lymphadenopathy. Supple, full range of motion without nuchal rigidity, or vertebral point tenderness. No Meningismus. Chest/axilla: Normal chest wall appearance and motion. Nontender with no deformity. No lesions are appreciated. Cardiovascular: Regular rate and rhythm with a normal S1 and S2. No gallops, murmurs, or rubs. Normal PMI, no JVD. No pulse deficits. Respiratory: Lungs have equal breath sounds bilaterally, clear to auscultation and percussion. No rales, rhonchi or wheezes noted. No increased work of breathing, no retractions or nasal flaring. Abdomen/GI: Soft, non-tender, with normal bowel sounds. No distension or tympany. No guarding or rebound. No evidence of tenderness throughout. Skin: Warm, dry with normal turgor. Normal color with no rashes, no lesions, and no evidence of cellulitis. MS/ Extremity: Pulses equal, no cyanosis. Neurovascular intact. Full, normal range of motion. Neuro: Awake and alert, GCS 15, oriented to person, place, time, and situation. Cranial nerves II-XII grossly intact. Motor strength 5/5 in all extremities. Sensory grossly intact. Cerebellar exam normal. Normal gait. Psych: Awake, alert, with orientation to person, place and time. Behavior, mood, and affect are within normal limits. 09:56 Back: pain, that is very mild, of the left scapular area, right scapular area and thoracic area, ROM is painful, with all movement, normal spinal alignment noted, vertebral tenderness, is not appreciated. Vital Signs: 06:19 BP 164 / 84; Pulse 58; Resp 20 S; Temp 97.8(O); Pulse Ox 100% on R/A; Weight 87.54 kg ag7 (R); Height 5 ft. 8 in. (172.72 cm) (R); Pain 8/10; 09:24 BP 152 / 86; Pulse 58; Resp 17; Pulse Ox 99% on R/A; tw2 06:19 Body Mass Index 29.35 (87.54 kg, 172.72 cm) ag7 MDM: 09:27 Patient medically screened. kdr 09:56 Data reviewed: vital signs, nurses notes, lab test result(s), radiologic studies. kdr Counseling: I had a detailed discussion with the patient and/or guardian regarding: the historical points, exam findings, and any diagnostic results supporting the discharge/admit diagnosis, lab results, radiology results. 03/24 07:17 Order name: Chest Pa And Lat (2 Views) XRAY; Complete Time: 08:59 kdr Administered Medications: No medications were administered Disposition Summary: 03/24/22 09:27 Discharge Ordered Location: Home kdr Problem: new kdr Symptoms: have improved kdr Condition: Stable kdr Diagnosis - Upper Back Pain kdr Followup: kdr - With: Private Physician - When: 2 - 3 days - Reason: If symptoms return, Further diagnostic work-up, Recheck today's complaints, Continuance of care, Re-evaluation by your physician Discharge Instructions: - Acute Back Pain, Adult kdr - Discharge Summary Sheet tw2 Forms: - Medication Reconciliation Form kdr - Thank You Letter kdr - Work release form tw2 Prescriptions: - Diclofenac Sodium 75 mg Oral Tablet Sustained Release - take 1 tablet by ORAL route 2 times per day; 30 tablet; Refills: 0, Product kdr Selection Permitted Signatures: Dispatcher [employer] Ed Hidalgo MD MD kdr Glenn, Angela RN RN ag7
[2022-03-24 10:10] VITALS: TEMP 97.8
[2022-03-24 10:12] VITALS: BP 152/86; O2SAT 99
== END 2022-03-24 09:34 | disposition home or self-care (01) ==
LOC: ER 04:53
DX: M54.9 Dorsalgia, unspecified (principal); E11.9 Type 2 diabetes mellitus without complications; I10 Essential (primary) hypertension; Z88.8 Allergy status to other drugs, medicaments and biological substances; Z98.84 Bariatric surgery status
CPT/HCPCS: 71046; 99283

== ENCOUNTER 2022-08-12 23:57 | Emergency (ER) | payer OTHER ==
--- OUTSIDE RECORDS SUMMARY | 2022-08-13 00:01 | XMS REPORT | Continuity of Care Document ---
:1970 Author Organization [facility] t Address [address] [place] [address] Care Team Providers Name Role Phone Car TELLEZ, Theodora Nam Primary Care Physician [phone] Rosario Coates MD Attending Clinician RUKHSANA MACKAY Attending Clinician Unavailable Doctor Unassigned, [place] Attending Clinician Unavailable Sobia TELLEZ, Jaden Celis Attending Clinician [phone] Lab, Adc Fam Pob I Attending Clinician Unavailable Sammi Norton Attending Clinician SAMMI FRANK Attending Clinician Unavailable Alondra Joshi RN Attending Clinician Unavailable Pob1, Acute Care Clinic Attending Clinician Unavailable Alix Owen Attending Clinician ALIX LAUREN Attending Clinician Unavailable Payers Payer Name [...] Active Met hodi of right of right 01-16 elbow elbow 00:00: Hospita 00 l 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 2 ed type 2 05-18 diabetes diabetes 00:00: Hospit a mellitus mellitus 00 l with with complicati complicati on, with on, with long-term long-term current current use of use of insulin insulin Mixed Mixed Disease Active Methodi hyperlipid hyperlipid 05-18 emia emia 00:00: Hospita 00 l 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 2 ed type 2 05-18 diabetes diabetes 00:00: Hospit a mellitus mellitus 00 l with with complicati complicati on, with on, with long-term long-term current current use of use of insulin insulin Benign Benign Disease Active Methodi essential essential 05-06 HTN HTN 00:00: Hospita 00 l No known No known Disease Unive rs active active ity of problems problems [facility] Allergies, Adverse Reactions, Alerts Allergy Allergy Status Severity Reaction(s) Onset Inactive Treating Comm ents Source Name Type Date Date Clinician Lisinopr Propensi Active Cough 2019-0 Univer s il ty to 04-11 ity of adverse 00:00: [place] reaction 00 Medical s Branch LISINOPR DRUG Active COUGH 2019-0 Univers IL INGREDI 04-11 ity of 00:00: [place] 00 Medical Branch Pollen Propensi Active 2016-10 Pt Methodi Extracts ty to 11-[address] adverse 00:00: to dust Hospita reaction 00 l s to drug Lisinopr Propensi Active Other (See Cough Me thodi il ty to Comments) 03-31 st adverse 00:00: Hospita reaction 00 l s to drug NO KNOWN Drug Active Univers ALLERGIE Class ity of S [facility] Family History Family Member Diagnosis Comments Start Date Stop Date Source Natural mother Heart disease [facility] Natural mother Hypertension [facility] Natural mother Stroke [facility] Natural mother Diabetes [facility] Paternal grandfather [facility] Paternal grandmother [facility] Natural father Diabetes [facility] father Hypertension [facility] Maternal grandfather [facility] Maternal grandmother [facility] Social History Social Habit Start Date Stop Date Quantity Comments Source Exposure to [facility] SARS-CoV-2 [facility] (event) Branch History SDOH Mu-Ism Alcohol Std Hospital Drinks History SDOH [facility] Alcohol Binge Hospital History SDOH [facility] Alcohol Comment Hospital Alcohol intake 2020-06-23 2020-06-23 Current Mu-Ism 00:00:00 00:00:00 non-drinker of Hospital alcohol (finding) History SDOH 2020-06-23 2020-06-23 1 Mu-Ism Alcohol Frequency 00:00:00 00:00:00 Hospita l Tobacco use and 2017-03-31 2017-03-31 Smokeless tobacco [facility] exposure 00:00:00 00:00:00 non-user Hospital Sex Assigned At [birth year] M [facility]Ism 00:00:00 00:00:00 Hospital Smoking Status Start Date Stop Date Source Never smoker [facility] Medications Ordered Filled Start Stop Current Ordering Indication Dosage Frequency Signature Comments Components Source Medication Medication Date Date Medication? Clinician (SIG) Name Name BrittanyStyle Yes USE 1 KIT Met hodi Ramy 14 06-[address] Day Sensor 00:00: DAYS. Hospit a kit 00 l FreeStyle Yes USE 1 KIT Met hodi Ramy 14 -[address] Day Sensor 00:00: DAYS. Hospit a kit 00 l atorvastati Yes 40mg QD Take 40 mg Methodi [...] (AMLODIPINE 14:21: Hospit a ORAL) 27 l atorvastati 2020-0 Yes 40mg QD Take [...] UNABLE TO 2020-0 Yes QD daily. Med Az thodi FIND 06-23 Name: st 14:21: Bariatric Hospita 27 Advantage l MVI losartan 2020-0 Yes Take by Method i potassium 06-[address] (LOSARTAN 14:21: Hospita ORAL) 27 l amlodipine 2020-0 Yes Take by Meth leandra besylate 06-[address] (AMLODIPINE 14:21: Hospit a ORAL) 27 l flash 2020-0 Yes 1{kit} 1 kit Methodi glucose 8-[address] scanning 00:00: ly. Hospita reader 00 Freestyle l (FreeStyle ramy Ramy 14 Milner Use Day Milner) as misc directed flash 2020-0 Yes 1{kit} 1 kit Methodi glucose 8-[address] scanning 00:00: ly. Hospita reader 00 Freestyle l (FreeStyle ramy Ramy 14 Milner Use Day Milner) as misc directed flash 2020-0 2020- No 1{kit} Q14D 1 kit Methodi glucose 8- 08-[address] sensor 00:00: 00:00 (fourteen) Hosp junie (FreeStyle 00 :00 days. l Ramy 14 Freestyle Day Sensor) Ramy kit Sensors Use as directed insulin 2020-0 Yes 20U QD Inject 20 Metho di GLARGINE 8-[address] (LANTUS) 00:00: under the Hosp junie 100 unit/mL 00 skin l injection daily. (vial) insulin 2020-0 Yes 20U QD Inject 20 Metho di GLARGINE 8-[address] (LANTUS) 00:00: under the Hosp junie 100 unit/mL 00 skin l injection daily. (vial) benzonatate 2020-0 Yes [id number] 100mg Take 1 Univers (TESSALON 6-19 capsule by padmaja of MIGUEL ÁNGEL) 100 00:00: mouth 3 Miles as mg capsule 00 (three) Medica l times Branch daily as needed for Cough. benzonatate 2020-0 Yes [id number] 100mg Take 1 Univers (TESSALON 6-19 capsule by padmaja of MIGUEL ÁNGEL) 100 00:00: mouth 3 Miles as mg capsule 00 (three) Medica l times Branch daily as needed for Cough. benzonatate 2020-0 Yes [id number] 100mg Take 1 Univers (TESSALON 6-19 capsule by itilana of MIGUEL ÁNGEL) 100 00:00: mouth 3 Miles as mg capsule 00 (three) Medica l times Branch daily as needed for Cough. benzonatate 2020-0 Yes [id number] 100mg Take 1 Univers (TESSALON 6-19 capsule by itilana of PERLSINDHU) 100 00:00: mouth 3 Miles as mg capsule 00 (three) Medica l times Branch daily as needed for Cough. benzonatate 2020-0 Yes [id number] 100mg Take 1 Univers (TESSALON 6-19 capsule by padmaja of MIGUEL ÁNGEL) 100 00:00: mouth 3 Miles as mg capsule 00 (three) Medica l times Branch daily as needed for Cough. gabapentin 2019-0 Yes 100mg Q.[id number] Take 1 Methodi (NEURONTIN) 2-[id number] 100 mg 00:00: 3D (100 mg Hospita capsule 00 total) by l mouth 3 (three) times a day. gabapentin 2019-0 Yes 100mg Q.[id number] Take 1 Methodi (NEURONTIN) 2-[id number] 100 mg 00:00: 3D (100 mg Hospita capsule 00 total) by l mouth 3 (three) times a day. citalopram 2018-0 Yes 40mg QD Take 1 Metho di (CeleXA) 40 9-17 tablet (40 st MG tablet 00:00: mg total) Hos maddi 00 by mouth l nightly. citalopram 2018-0 Yes 40mg QD Take 1 Metho di (CeleXA) 40 9-17 tablet (40 st MG tablet 00:00: mg total) Hos maddi 00 by mouth l nightly. blood sugar 2016-0 Yes [id number] Testing 4 Methodi diagnostic 8-[address] strips 00:00: Hospita strip test 00 l strips lancets 2016-0 Yes [id number] Testing 4 Methodi misc 8-[address] 00:00: Hospita 00 l blood sugar 2017-0 Yes [id number] Testing 4 Methodi diagnostic 8-[address] strips 00:00: Hospita strip test 00 l strips lancets 2016-0 Yes [id number] Testing 4 Methodi misc 8-[address] 00:00: Hospita 00 l lancets 33 2016-0 Yes [id number] Testing 3 Methodi gauge misc 8-[address] 00:00: Hospita 00 l lancets 33 2016-0 Yes [id number] Testing 3 Methodi gauge misc 8-[address] 00:00: Hospita 00 l blood sugar 2017-0 Yes [id number] Testing 3 Methodi diagnostic 7-[address] strips 00:00: Hospita strip test 00 l strips blood sugar 2017-0 Yes [id number] Testing 3 Methodi diagnostic 7-[address] strips 00:00: Hospita strip test 00 l strips Vital Signs Vital Name Observation Time Observation Value Comments Source Systolic blood 2020-04-11 21:33:00 142 mm[Hg] Univer sity [facility] Diastolic blood 2020-04-11 21:33:00 88 mm[Hg] [facility] rate 2020-04-11 21:33:00 78 /min [facility] Body temperature 2020-04-11 21:33:00 36.89 Leatha [facility] Respiratory rate 2020-04-11 21:33:00 17 /min [facility] Body weight 2020-04-11 21:33:00 84.993 kg [facility] Oxygen saturation in 2020-04-11 21:33:00 98 /min [facility] Arterial blood by [facility] Pulse oximetry Branch Systolic blood 2020-04-11 21:33:00 142 mm[Hg] Univer sity of pressure [facility] Diastolic blood 2020-04-11 21:33:00 88 mm[Hg] Unive rsity of pressure [facility] Heart rate 2020-04-11 21:33:00 78 /min [facility] Body temperature 2020-04-11 21:33:00 36.89 Leatha [facility] Respiratory rate 2020-04-11 21:33:00 17 /min [facility] Body weight 2020-04-11 21:33:00 84.993 kg [facility] Oxygen saturation in 2020-04-11 21:33:00 98 /min [facility] Arterial blood by [facility] Pulse oximetry Branch Procedures Procedure Date / Time Performing Clinician Source Performed NO SHOW OR MISSED 2021-03-19 15:01:31 Doctor Unassigned, [facility] APPOINTMENT POLICY [facility] ACKNOWLEDGEMENT REFERRAL- REQUEST/RESPONSE 2021-02-09 05:01:00 Doctor Unassigned , [facility] [place] Plan of Care Planned Activity Planned Date Details Comments Source Future Scheduled 2022-06-24 HEPATITIS B VACCINES [facility] Test 18:19:55 (1 of 3 - 3-dose series) [code = HEPATITIS B VACCINES (1 of 3 - 3-dose series)] Future Scheduled 2022-06-24 COVID-19 VACCINE (#1) [facility] Test 18:19:55 [code = COVID-19 VACCINE (#1)] Future Scheduled 2022-06-24 Pneumococcal Vaccine: [facility] Test 18:19:55 Pediatrics (0 to 5 Years) and At-Risk Patients (6 to 64 Years) (1 - PCV) [code = Pneumococcal Vaccine: Pediatrics (0 to 5 Years) and At-Risk Patients (6 to 64 Years) (1 - PCV)] Future Scheduled 2022-06-24 Hepatitis C screening [facility] Test 18:19:55 (procedure) [code = 566571749] Future Scheduled 2022-06-24 COLONOSCOPY SCREENING [facility] Test 18:19:55 [code = COLONOSCOPY SCREENING] Future Scheduled 2022-06-24 DIABETIC FOOT EXAM [facility] Test 18:19:55 [code = DIABETIC FOOT EXAM] Future Scheduled 2022-06-24 [facility]:19:55 of 2) [code = SHINGLES VACCINES (1 of 2)] Future Scheduled 2022-06-24 URINE MICROALBUMIN [facility] Test 18:19:55 [code = URINE MICROALBUMIN] Future Scheduled 2022-06-24 DIABETES: RETINAL EYE [facility] Test 18:19:55 EXAM [code = DIABETES: RETINAL EYE EXAM] Future Scheduled 2022-06-24 INFLUENZA VACCINE [facility] Test 18:19:55 [code = INFLUENZA VACCINE] Future Scheduled 2021-10-21 COVID-19 VACCINE (1) Met [facility] Test 08:45:45 [code = COVID-19 VACCINE (1)] Future Scheduled 2021-10-21 Hepatitis C screening [facility] Test 08:45:45 (procedure) [code = [id number]] Future Scheduled 2021-10-21 DIABETIC FOOT EXAM [facility] Test 08:45:45 [code = DIABETIC FOOT EXAM] Future Scheduled 2021-10-21 [facility] Test 08:45:45 [code = COLONOSCOPY SCREENING] Future Scheduled 2021-10-21 SHINGLES VACCINES (#1) [facility] Test 08:45:45 [code = SHINGLES VACCINES (#1)] Future Scheduled 2021-10-21 URINE MICROALBUMIN [facility] Test 08:45:45 [code = URINE MICROALBUMIN] Future Scheduled 2021-10-21 DIABETES: RETINAL EYE [facility] Test 08:45:45 EXAM [code = DIABETES: RETINAL EYE EXAM] Future Scheduled 2021-10-21 INFLUENZA VACCINE [facility] Test 08:45:45 [code = INFLUENZA VACCINE] Encounters Start End Encounter Admission Attending Care Care Encounter Source Date/Time Date/Time Type Type Clinicians Facility Department ID 2021-10-08 2021-10-08 Travel 1.2.840.1 [id number] Methodi 00:00:00 00:00:[address] 3.430.2.7 0.2.7.3.698 Ho spita .3.829407 084.8 l .8 2021-10-08 2021-10-08 Travel 1.2.840.1 1.2.006.209 [id number] Methodi 00:00:00 00:00:[address] 3.430.2.7 0.2.7.3.698 Ho spita .3.468291 084.8 l .8 2021-06-10 2021-06-10 Refill Patham, 1.2.840.1 [id number] Methodi 00:00:00 00:00:[address] 3.430.2.7 Hospit a .3.068167 l .8 2021-03-19 2021-03-19 Outpatient Palmira MACKAY [facility] [id number] Univers 10:00:00 10:00:[address] [facility] 2021-03-19 2021-03-19 Orders Doctor CAMPOS 1.2.840.114 [id number] 00:00:00 00:00:00 Only Unassigned, RENEE 350.1.13.10 [facility] 4.2.7.2.686 [id number] 2021-03-19 2021-03-19 Orders Doctor CAMPOS 1.2.840.114 [id number] [facility] 00:00:00 00:00:00 Only Unassigned, RENEE 350.1.13.10 ity of [facility] 4.2.7.2.686 Miles as [phone] [address] 2021-02-09 2021-02-09 Orders Doctor ANDRES 1.2.840.114 [id number] 00:00:00 00:00:00 Only Unassigned, RENEE 350.1.13.10 [facility] 4.2.7.2.686 [id number] 009 2021-02-09 2021-02-09 Orders Doctor ANDRES Hernandez2.840.114 [id number] [facility] 00:00:00 00:00:00 Only Unassigned, RENEE 350.1.13.10 ity of [place] [facility] 4.2.7.2.686 Miles as [phone] [facility] andrzej 009 Branch 2021-01-30 2021-01-30 Travel 1.2.840.1 1.2.723.020 [id number] Methodi 00:00:00 00:00:[address] 3.430.2.7 0.2.7.3.698 Ho spita .3.498429 084.8 l .8 2021-01-26 2021-01-26 Telephone [facility] 1.2.840.1 [id number] Methodi 00:00:00 00:00:00 oval, [address]1849.1.[address] Jaden Lalita 3.430.2.7 Ho spita .3.327061 l .8 2020-06-23 2020-06-23 Outpatient [facility] [id number] [place] 00:00:00 00:00:00 OVAL, 429 Method i JADEN 2020-06-11 2020-06-11 Outpatient [facility] [id number] [place] 00:00:00 00:00:00 OVAL, 968 Method i JADEN 2020-06-09 2020-06-09 Outpatient [facility] [id number] [place] 00:00:00 00:00:00 OVAL, [address] 2020-05-27 2020-05-27 Outpatient PATHAM, [facility] [id number] [place] 00:00:00 00:00:00 ROSARIO [address] 2020-04-28 2020-04-28 Laboratory Lab, [facility] 1.2.840.114 [id number] 15:22:24 15:42:24 Only Fam Pob I Health 350.1.13.10 [place] 4.2.7.2.686 Professio [phone] nal [address] 2020-04-28 2020-04-28 Laboratory Lab, Adc Fam Pob I [facility] 1.2. 840.114 [id number] [facility] 15:22:24 15:42:24 Only Green, S[facility] 350.1.13.10 ity of [place] 4.2.7.2.686 Miles as Professio [phone] [address] Office [address] 2020-04-28 2020-04-28 Outpatient R MONIKA [facility] [id number] Univers 15:20:00 15:20:00 SAMMI ity [facility] 2020-04-13 2020-04-13 Telephone [employer] ANDRES 1.2.840.114 [id number] [facility] 00:00:00 00:00:00 d Alondar Aldridge RENEE 350.1.13.10 ity of [facility] 4.2.7.2.686 Miles as [phone] [address] 2020-04-13 2020-04-13 Telephone [employer] ANDRES 1.2.840.114 [id number] 00:00:00 00:00:00 d, Alondra DURAN 350.1.13.10 [facility] 4.2.7.2.686 [id number] [facility] 2020-04-11 2020-04-11 Urgent Pob1, Acute Care Clinic [facility] 1. 2.840.114 [id number] Univers 15:51:25 16:47:07 Alix Decker [facility] 350.1.13.10 ity of [place] 4.2.7.2.686 Miles as Professio [phone] [address] Office [address] 2020-04-11 2020-04-11 Urgent Pob1, Acute [facility] 1.2.840.114 [id number] 15:51:25 16:47:07 [facility] 350.1.13.10 [place] 4.2.7.2.686 Professio [phone] [place] [address] [address] 2020-04-11 2020-04-11 Outpatient R LEONIDAS [facility] [id number] Univers 16:20:00 16:20:00 ALIX giang [facility] Results This patient has no known results.
[2022-08-13] MEDS ORDERED: KETOROLAC 30 MG/ML INJ ONE (00:34)
[2022-08-13] MEDS ORDERED: LIDOCAINE 4% PATCH ONE (00:34)
[2022-08-13 00:53] LABS: Absolute Lymphocytes (CBC) 3.5 K/uL (0.7-4.9); Hematocrit 47.8 % (39.6-49.0); Lymphocytes % 41.5 % (15.3-44.8); MPV 8.6 fL (7.6-11.3); RBC Red Blood Cell Count 5.43 M/uL (4.33-5.43)
[2022-08-13 01:06] LABS: Potassium 3.6 mmol/L (3.5-5.1); Troponin High Sensitivity 6.5 pg/mL (<58.9)
[2022-08-13] MEDS ORDERED: HYDROCODONE/APAP 5/325 MG TAB ONE (02:07)
[2022-08-13] MEDS ORDERED: NA CHLORIDE 0.9% 100 ML IV ONE (02:07)
[2022-08-13] MEDS ORDERED: METHOCARBAMOL 1,000 MG/10 ML VIAL IV ONE (02:07)
--- NOTE | 2022-08-13 03:15 | ER ---
Nurse's Notes [facility] Name: Osmany Ojeda Age: 52 yrs Sex: Male : 1970 Arrival Date: 08/13/2022 Time: 00:01 Bed DIS2 Private MD: Diagnosis: Right sided upper back pain;Pleuritic pain Presentation: 08/13 00:12 Chief complaint: Patient states: he is having difficulty breathing when he takes a deep bb breath "it hurts real bad" also having right upper back pain since yesterday. Coronavirus screen: At this time, the client does not indicate any symptoms associated with coronavirus-19. Ebola Screen: No symptoms or risks identified at this time. Initial Sepsis Screen: Does the patient meet any 2 criteria? No. Patient's initial sepsis screen is negative. Does the patient have a suspected source of infection? No. Patient's initial sepsis screen is negative. Risk Assessment: Do you want to hurt yourself or someone else? Patient reports no desire to harm self or others. Onset of symptoms was August 11, 2022. 00:12 Method Of Arrival: Ambulatory bb 00:12 Acuity: JOSEPH 3 bb Triage Assessment: 00:14 General: Appears in no apparent distress. Behavior is calm, cooperative. Pain: bb Complains of pain in back Pain currently is 9 out of 10 on a pain scale. Neuro: Level of Consciousness is awake, alert, obeys commands, Oriented to person, place, time, situation. Cardiovascular: Capillary refill < 3 seconds Patient's skin is warm and dry. Respiratory: Reports pain with respiration Respiratory effort is even, unlabored, Respiratory pattern is regular, Onset: The symptoms/episode began/occurred yesterday, the patient has mild shortness of breath. GI: No signs and/or symptoms were reported involving the gastrointestinal system. Derm: Skin is pink, warm \\T\\ dry. Musculoskeletal: Circulation, motion, and sensation intact. Reports pain in right upper back. Historical: - Allergies: 00:14 Lisinopril; bb - Home Meds: 00:14 amlodipine 10 mg tab 1 tab once daily [Active]; Hydrochlorothiazide Oral [Active]; bb losartan 50 mg Oral tab 1 tab 2 times per day [Active]; Metformin Oral [Active]; Victoza 2-Walt subcutaneous [Active]; aspart insulin [Active]; Lantus [Active]; atorvastatin oral [Active]; - PMHx: 00:14 acid reflux; Diabetes - IDDM; Hypertension; PTSD; Sleep Apnea; bb - PSHx: 00:14 Gastric Bypass; bb - Immunization history:: Pfizer x 3. - Social history:: Smoking status: Patient denies any tobacco usage or history of. Screenin:13 Abuse screen: Denies threats or abuse. Nutritional screening: No deficits noted. vc1 Tuberculosis screening: No symptoms or risk factors identified. Fall Risk None identified. Assessment: 03:12 Reassessment: Patient and/or family updated on plan of care and expected duration. Pain vc1 level reassessed. Patient is alert, oriented x 3, equal unlabored respirations, skin warm/dry/pink. Patient states feeling better. Patient states symptoms have improved. Cardiovascular: Rhythm is sinus bradycardia. Respiratory: Airway is patent Respiratory effort is even, unlabored, Respiratory pattern is regular, symmetrical, Breath sounds are clear. Vital Signs: 00:12 BP 176 / 93; Pulse 57; Resp 16 S; Temp 97.3(TE); Pulse Ox 99% on R/A; Weight 89.36 kg bb (R); Height 5 ft. 8 in. (172.72 cm) (R); Pain 9/10; 03:20 BP 198 / 92; Pulse 46; Resp 17; Pulse Ox 99% ; vc1 00:12 Body Mass Index 29.95 (89.36 kg, 172.72 cm) bb 03:20 pt to take blood pressure medicine once he gets home, did not take tonights dose vc1 ED Course: 00:01 Patient arrived in ED. bp1 00:14 Triage completed. bb 00:14 Arm band placed on Patient placed in waiting room, Patient notified of wait time bb Patient pt evaluated by Dr Payne in triage. 00:16 Carla Payne MD is Attending Physician. sd2 00:28 Inserted saline lock: in right antecubital area, using aseptic technique. Blood vc1 collected. 00:34 D-Dimer Sent. vc1 00:34 Troponin High Sensitivity Sent. vc1 00:35 BMP Sent. vc1 00:35 CBC with Diff Sent. vc1 00:40 XRAY Chest (1 view) In Process Unspecified. EDMS 03:13 Patient has correct armband on for positive identification. vc1 03:13 No provider procedures requiring assistance completed. vc1 03:35 Janee Osborne, RN is Primary Nurse. vc1 03:36 IV discontinued, intact, bleeding controlled, No redness/swelling at site. Pressure vc1 dressing applied. Administered Medications: 00:38 Drug: Ketorolac 15 mg Route: IVP; Site: right antecubital; vc1 02:15 Follow up: Response: No adverse reaction; Pain is unchanged, physician notified vc1 00:38 Drug: Lidoderm Patch 5 % (700 mg/patch) 1 patches {Note: right scapula.} Route: vc1 Topical; Site: affected area; 02:14 Drug: Methocarbamol 1 grams Route: IVPB; Infused Over: 1 hrs; Site: right antecubital; vc1 03:10 Follow up: IV Status: Completed infusion; IV Intake: 100ml vc1 02:14 Drug: HYDROcodone-acetaminophen 5 mg-325 mg 1 tabs Route: PO; vc1 03:10 Follow up: Response: No adverse reaction; Marked relief of symptoms; Pain is decreased vc1 Medication: 03:13 VIS not applicable for this client. vc1 Intake: 03:10 IV: 100ml; Total: 100ml. vc1 Outcome: 03:14 Discharge ordered by . sd2 03:36 Discharged to home ambulatory, with family. vc1 03:36 Condition: improved 03:36 Discharge instructions given to patient, Instructed on discharge instructions, follow up and referral plans. medication usage, Demonstrated understanding of instructions, follow-up care, medications, Prescriptions given X 2. 03:36 Patient left the ED. vc1 Signatures: Dispatcher [employer] EDMS Marlin Martinez RN RN Katherine Arriaga [facility] Janee Osborne, DELIO RN vc1 Carla Payne MD MD sd2 Corrections: (The following items were deleted from the chart) 00:48 00:35 PROBNP+C.LAB.BRZ drawn and sent. vc1 EDMS
--- NOTE | 2022-08-13 03:15 | EDPHYS ---
Physician Documentation [facility] Name: Osmany Ojeda Age: 52 yrs Sex: Male : 1970 Arrival Date: 08/13/2022 Time: 00:01 Bed DIS2 Private MD: ED Physician Carla Payne HPI: 08/13 01:06 This 52 yrs old Male presents to ER via Ambulatory with complaints of sd2 Breathing Difficulty, Back Pain. 01:06 52 yo M presents with CC of R upper back pain that started yesterday and difficulty sd2 breathing starting today due to the pain. Reports it hurts to take a deep breath which has made it difficult for him to breathe. Denies any CP, fever, vomiting, abdominal pain. No known injury to the back. Back pain is worse with movement of R shoulder and twisting motions. . Historical: - Allergies: 00:14 Lisinopril; bb - Home Meds: 00:14 amlodipine 10 mg tab 1 tab once daily [Active]; Hydrochlorothiazide Oral [Active]; bb losartan 50 mg Oral tab 1 tab 2 times per day [Active]; Metformin Oral [Active]; Victoza 2-Walt subcutaneous [Active]; aspart insulin [Active]; Lantus [Active]; atorvastatin oral [Active]; - PMHx: 00:14 acid reflux; Diabetes - IDDM; Hypertension; PTSD; Sleep Apnea; bb - PSHx: 00:14 Gastric Bypass; bb - Immunization history:: Pfizer x 3. - Social history:: Smoking status: Patient denies any tobacco usage or history of. ROS: 01:06 Constitutional: Negative for fever, chills, and weight loss, Eyes: Negative for injury, sd2 pain, redness, and discharge, Cardiovascular: Negative for chest pain, palpitations, and edema, Respiratory: Positive for shortness of breath, Negative for cough, wheezing. Abdomen/GI: Negative for abdominal pain, nausea, vomiting, diarrhea. Back: Negative for injury, Positive for pain. : Negative for dysuria, frequency or hematuria. MS/Extremity: Negative for injury and deformity, Skin: Negative for injury, rash, and discoloration, Neuro: Negative for headache, numbness and tingling. Exam: 01:06 Constitutional: This is a well developed, well nourished patient who is awake, alert, sd2 and in no acute distress. Head/Face: Normocephalic, atraumatic. Eyes: EOMI, normal conjunctiva bilaterally Chest/axilla: Normal chest wall appearance and motion. Nontender with no deformity. Cardiovascular: Regular rate and rhythm with a normal S1 and S2. No gallops, murmurs, or rubs. 2+ distal pulses. Respiratory: Lungs have equal breath sounds bilaterally, clear to auscultation and percussion. No rales, rhonchi or wheezes noted. No increased work of breathing, no retractions or nasal flaring. Abdomen/GI: Soft, non-tender, with normal bowel sounds. No guarding or rebound. No evidence of tenderness throughout. Back: No spinal tenderness. No costovertebral tenderness. Full range of motion. Pinpoint tenderness to medial R shoulder blade area which is area of pain. Skin: Warm, dry with normal turgor. Normal color with no rashes, no lesions, and no evidence of cellulitis. MS/ Extremity: Pulses equal, no cyanosis. Neurovascular intact. Full, normal range of motion. Ambulatory without difficulty. Neuro: 5/5 strength to BUE/BLEs, normal sensation, ambulatory without difficulty or ataxia 01:06 ECG was reviewed by the Attending Physician. Sinus bradycardia, rate 53, no STEMI sd2 criteria Vital Signs: 00:12 BP 176 / 93; Pulse 57; Resp 16 S; Temp 97.3(TE); Pulse Ox 99% on R/A; Weight 89.36 kg bb (R); Height 5 ft. 8 in. (172.72 cm) (R); Pain 9/10; 03:20 BP 198 / 92; Pulse 46; Resp 17; Pulse Ox 99% ; vc1 00:12 Body Mass Index 29.95 (89.36 kg, 172.72 cm) bb 03:20 pt to take blood pressure medicine once he gets home, did not take tonights dose vc1 MDM: 00:21 Patient medically screened. sd2 03:12 Differential diagnosis: MSK, trigger point, ACS, PE, electrolyte abnormality among sd2 others. Data reviewed: vital signs, nurses notes, lab test result(s), EKG, radiologic studies. Counseling: I had a detailed discussion with the patient and/or guardian regarding: the historical points, exam findings, and any diagnostic results supporting the discharge/admit diagnosis, lab results, radiology results, the need for outpatient follow up, to return to the emergency department if symptoms worsen or persist or if there are any questions or concerns that arise at home. Medical screen evaluation completed. [facility] emergency medical condition absent. ED course: Labs and imaging reviewed. Labs grossly WNCL. Trop neg. EKG with no ischemic changes. CXR with no acute process. D-dimer negative. SUspect MSK etiology with pinpoint area of pain on exam at medial shoulder blade and worsened with certain movements. Pt feeling improved after treatment. Will plan to discharge with NSAIDs and muscle relaxers. Also advised use of lidocaine patches.. 08/13 00:21 Order name: CBC with Diff; Complete Time: 01:04 sd2 08/13 00:21 Order name: BMP; Complete Time: 01:13 sd2 08/13 00:21 Order name: Troponin High Sensitivity; Complete Time: 01:13 sd2 08/13 00:21 Order name: D-Dimer; Complete Time: 01:04 sd2 08/13 00:48 Order name: NT PRO-BNP; Complete Time: 01:13 EDMS 08/13 00:21 Order name: EKG - Nurse/Tech; Complete Time: 00:34 sd2 08/13 00:21 Order name: XRAY Chest (1 view) sd2 Administered Medications: 00:38 Drug: Ketorolac 15 mg Route: IVP; Site: right antecubital; vc1 02:15 Follow up: Response: No adverse reaction; Pain is unchanged, physician notified vc1 00:38 Drug: Lidoderm Patch 5 % (700 mg/patch) 1 patches {Note: right scapula.} Route: vc1 Topical; Site: affected area; 02:14 Drug: Methocarbamol 1 grams Route: IVPB; Infused Over: 1 hrs; Site: right antecubital; vc1 03:10 Follow up: IV Status: Completed infusion; IV Intake: 100ml vc1 02:14 Drug: HYDROcodone-acetaminophen 5 mg-325 mg 1 tabs Route: PO; vc1 03:10 Follow up: Response: No adverse reaction; Marked relief of symptoms; Pain is decreased vc1 Disposition Summary: 08/13/22 03:14 Discharge Ordered Location: Home sd2 Problem: new sd2 Symptoms: have improved sd2 Condition: Stable sd2 Diagnosis - Right sided upper back pain sd2 - Pleuritic pain sd2 Followup: sd2 - With: Private Physician - When: 2 - 3 days - Reason: Recheck today's complaints, Continuance of care, Re-evaluation by your physician Discharge Instructions: - Discharge Summary Sheet sd2 Forms: - Medication Reconciliation Form sd2 - Thank You Letter sd2 - Antibiotic Education sd2 - Prescription Opioid Use sd2 Prescriptions: - Ibuprofen 800 mg Oral Tablet - take 1 tablet by ORAL route every 8 hours As needed take with food; 20 tablet; sd2 Refills: 0, Product Selection Permitted - methocarbamol 750 mg Oral Tablet - take 1 tablet by ORAL route 3 times per day As needed; 15 tablet; Refills: 0, sd2 Product Selection Permitted Signatures: Dispatcher [employer] Marlin Titus RN RN Janee Mancini RN RN vc1 Carla Payne MD MD sd2 Corrections: (The following items were deleted from the chart) 00:48 00:23 PROBNP+C.LAB.BRZ ordered. MATTHEW CASTRO
[2022-08-13 03:54] VITALS: TEMP 97.3; O2SAT 99
[2022-08-13 03:59] VITALS: BP 198/92
--- NOTE | 2022-08-13 12:25 | RAD REPORT ---
EXAM DESCRIPTION: XR Chest, 1 View CLINICAL HISTORY: The patient is 52 years old and is Male; SHORTNESS OF BREATH TECHNIQUE: Frontal view of the chest. COMPARISON: No relevant prior studies available. FINDINGS: Lungs: Unremarkable. No consolidation. Pleural space: Unremarkable. No pneumothorax. Heart: Unremarkable. Mediastinum: Unremarkable. Bones/joints: Unremarkable. IMPRESSION: No acute findings in the chest. Electronically signed by: Teddy Monroe MD 08/13/2022 12:50 AM CDT Due to temporary technical issues with the PACS/Fluency reporting system, reports are being signed by the in house radiologists without review as a courtesy to insure prompt reporting. The interpreting radiologist is fully responsible for the content of the report.
--- NOTE | 2022-08-14 16:55 | EKG ---
Test Date: 2022-08-13 Test Time: 00:34:00 Recordist: ALBER MEASUREMENT RESULTS: Intervals: Rate: 53 MD: 150 QRSD: 78 QT: 424 QTc: 397 [place]: P: 21 MD: 150 QRS: 35 T: 27 INTERPRETIVE STATEMENTS: Sinus bradycardia Septal infarct, age undetermined Abnormal ECG Compared to ECG 11/27/2020 19:57:32 Sinus rhythm no longer present Myocardial infarct finding still present Electronically Signed On 08-14-22 16:53:44 CDT by Pablito Taylor
== END 2022-08-13 03:36 | disposition home or self-care (01) ==
LOC: ER 23:57
DX: R07.81 Pleurodynia (principal); M54.6 Pain in thoracic spine; I10 Essential (primary) hypertension; E11.9 Type 2 diabetes mellitus without complications
CPT/HCPCS: 96365; 93005; 85025; 80048; 36415; 85379; 84484; 83880; 71045; 96375; 99284; J2001; J2800